=== PATIENT | male | born 1970 | race Caucasian/White ===

== ENCOUNTER 2017-07-10 06:07 | Inpatient (IN) | payer MEDICARE ==
[~2017-07-10] VITALS: Ht 175.3 cm; Wt 95.3 kg
[~2017-07-10 06:07] MED LIST: ANTIDEPRESSANT; CIT20 PO; CYPR4TAB32 PO; DIVA-1 PO; FLUO-177 PO; LEV100 PO; LEVO-3 PO; LEVO50TA80 PO; MAG HYD/AL HYD/SIMETH 30ML UDC PO PRN; MIRT45TA66 PO; MULT-1379 PO; PHEN100 PO; THYROID MED; TRAZ-133 PO; TRAZ50 PO; [UNRECOGNIZED DRUG - CODE] IM
[2017-07-10] MEDS ORDERED: DIAZEPAM 20 MG PER CIWA PROTOCOL PO PRN (06:35)
[2017-07-10 06:45] VITALS: BP 131/89
[2017-07-10] MEDS: MULTIVITAMINS PO SCH (08:31)
[2017-07-10] MEDS: FOLIC ACID 1 MG TAB PO SCH (08:31)
[2017-07-10] MEDS: THIAMINE HCL 100 MG TAB PO SCH (08:31)
[2017-07-10 09:45] VITALS: BP 121/71
--- NOTE | 2017-07-10 13:21 | BHS - Psychiatric Evaluation ---
ER - Title 25 MHE Evaluation Title 25 Evaluation Patient Detained By: Physician (Dr. Neftali Arellano), Law Enforcement (Jerel CHANDLER) Referral Source: Law Enforcement Date Patient Detained: Jul 10, 2017 Time Patient Detained: 03:56 Date Fci Expires: Jul 13, 2017 Time Fci Expires: 03:56 Legal Status: Police Hold: No Legal Status: Residence: [facility] Resident, State Resident Assessment Data Provided By: Patient, Law Enforcement, Other Source (Hospital professionals) HPI/ROS: From ER Doctor, Neftali Arellano, "46-year-old male with a known history of schizoaffective disorder. Patient has a history of alcohol abuse. He was admitted one month ago to [facility] for suicidal ideation. He has a long history of mental health issues with admission to the [facility]. Patient has a plan tonight to jump in front of the vehicle and kill himself. He admits to heavy alcohol use. Patient states she's been not taking his medication for several days. Patient is high risk for suicidal attempt. His emergency halfway will be upheld." Admit due to SI or Attempt: Yes Suicide Plan: Has Plan with Access Current Suicide Plan Patient makes suicidal statements when he is intoxicated. Alcohol or Drugs Involved: Yes Current Intoxication Info: Patient is withdrawing safely today from binge drinking yesterday. Is Patient Info Reliable: No (Patient has different presentation when he is intoxicated, versus when he is sober. He is currently intoxicated/withdrawing.) Is Collateral Info Reliable: Yes (Patient's 3-81 form is attached) Current Home Psych Meds: Patient reports not taking his medication for a considerable period. Mental Status Exam General Appearance: Casual, Good Eye Contact, Cooperative, Polite, Good Interaction Speech: Slurred (Slightly slurred, likely will resolve), Other (Slight speech impediment) Mood: Dysthmic/Depressed Affect: Sad Thought Process: Goal Directed Thought Content: Suicidal Ideation (Says his ideation has diminished some today. ) Sensorium: Clear Cognition: Alert & Oriented-Person, Alert & Oriented-Place, Alert & Oriented- Time, Cnlzz-Gdnjmnek-Hceqrzdqx Memory: Immediate Insight Judgment: Poor Sleep: Hypersomnia Hallucinations: Denies Delusions: Denies Current Risk & History Current Dangerous Risk Assessm: Current Suicide Ideation (Says he knows drinking makes him suicidal, and he says he cannot quit drinking.) Past Dangerous Risk Assessm: Suicide Ideation-last 6mo (Patient last hospitalized at [facility] for simial presentation 1 month ago.) Prior Alcohol/Drug Abuse Patient acknowledges a long history of alcohol and drug abuse. Previous Suicide Attempt: Past - High Lethality Number of Attempts/Description Has had 6 previous visits to [facility] with a similar presentation. Previous Psychiatric Illness: Yes Previous Diagnosis/Treatment: Alcohol intoxication. Alcohol use disorder, severe. Alcohol-induced mood disorder. Schizophrenia versus schizoaffective disorder, according to the patient. Cannabis use disorder, rule out cannabis related disorder. Employment and financial stressors. Stressors of illness Previous Psychiatric Treatment: Yes Previous Treatment Description Six previous [facility] hospitalizations in patient's medical record. It is notable that patient lived outside of the [facility] for several years, and may have been hospitalized elsewhere before he returned back to [place] to reside. Patient has reportedly been hospitalized at [facility]. Risk Assessment & Disposition Evaluated Risk Assessment: Risk is high and severe. Patient is decompensated, having suicidal thoughts, and drinking heavily. He is not taking his medication, and outpatient support is not sufficient to support him at his level of need. Meets Mental Illness Req.: Yes Meets Dangerousness Req.: Yes Emergency Fci to be: Upheld Decision Comment: Patient is a danger to himself because of his current decompensation. At this point he is not able to dafely care for himself and needs a structured environment to withdraw safely and prevent him from impulsively acting on ideation he has about taking his life. Patient has reportedly been hospitalized at [facility]. He says he wishes he could return there , because he acknowledges he cannot stop drinking here in [place]. Date of Decision: Jul 10, 2017 Time of Decision: 13:45 Patient is Medically Stable at: Yes Disposition: SARAH GRANADOS LPC Jul 10, 2017 13:21
[2017-07-10 14:00] VITALS: BP 122/68
[2017-07-10 18:25] VITALS: BP 144/82
[2017-07-10] MEDS: DIVALPROEX SOD ER 500 MG TABSR PO SCH (20:34)
[2017-07-10] MEDS: MIRTAZAPINE 15 MG TAB PO SCH (20:34)
[2017-07-10] MEDS ORDERED: MIRTAZAPINE PO SCH (21:00)
[2017-07-11] MEDS: LEVOTHYROXINE SOD 0.1 MG TAB PO SCH (05:44)
[2017-07-11 06:01] VITALS: BP 144/70
[2017-07-11] MEDS: MULTIVITAMINS PO SCH (07:48)
[2017-07-11] MEDS: FOLIC ACID 1 MG TAB PO SCH (07:48)
[2017-07-11] MEDS: THIAMINE HCL 100 MG TAB PO SCH (07:48)
--- NOTE | 2017-07-11 10:07 | BHS Progress Note ---
S - Subjective Progress Notes Subjective Patient remains cooperative today, stating again that he "needs to go to the [facility]." Patient has a history of frequent admissions prior to 2009, then a notable absence as he was not living in [place] until a return in 2016, followed shortly thereafter by an admission here in May 2017, under similar circumstances to this admission. Patient demonstrates an inability to effectively take medications on an outpatient basis. Patient is primally in need of Synthroid for hypo-thyroidism, secondarily patient's mood deteriorates when under the influence of alcohol. Patient has a history of schizoaffective disorder, treated with Depakote and injectable antipsychotic. Patient not reliably taking this medications either, but also not seemingly having symptoms associated with there absence here on the unit. At this time patient is very social on the unit, and would benefit from half-way arrangement, in order to manage patient's time effectively, and insure abstinence from alcohol and compliance with medications. Will proceed with 10 day hearing at this point. Patient sleeping and eating well, with minimal alcohol withdrawal. No other concerns today. Suicidal Ideation: Resolving Homicidal Ideation: None [facility] - Objective Physical Exam Vital Signs Vital Signs Date Time Temp Pulse Resp B/P (MAP) Pulse Ox O2 Delivery O2 Flow Rate FiO2 07/11/17 06:01 99.0 57 16 144/70 (94) 92 Room Air Muscle Strength and Tone: WNL Gait and Station: Steady [facility] Medications Reviewed: Side Effects, Benefits of Medication, Risks Allergies Reviewed: Yes Mental Status Exam General Appearance: Casual, Well Groomed, Good Eye Contact, Cooperative, Polite , Good Interaction, No Unkept, No Tearful, No Psychomotor Agitation, Psychomotor Retardation (associated with untreeated hypo-thyroidism. ), No Bizarre Mannerisms, No Tics Speech: Slurred (Slightly slurred, likely will resolve), Other (Slight speech impediment) Mood: Dysthmic/Depressed (improving) Affect: Calm, No Sad, Neutral, No Flat, No Withdrawn, No Tearful, No Anxious, No Agitated Thought Process: Organized, Logical, Goal Directed, No Loose Associations, No Flight of Ideas Thought Content: Suicidal Ideation (resolving), No Homicidal Ideation, No Delusions, No Auditory Halllucinations, No Visual Hallucinations, No Ideas of Reference, No Obsessions, No Compulsions Sensorium: Clear Cognition: Alert & Oriented-Person, Alert & Oriented-Place, Alert & Oriented- Time, Fuuvm-Hvjbjzfs-Mzdlblyfh Memory: Immediate Intelligence: Below Average (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 ) Insight Judgment: Poor (when under the influence of alcohol, and in absence of treatment for hypon thyroid state. ) [facility] Assessment and Plan [id number] Encounter Date: Jul 11, 2017 Vxsl-[id number] Encounter Time: 09:30 [facility] Plan: Necessary Precautions, Individual/Group Therapy, Admin/Titrate Meds, Educate Patient Tobacco Medications: Not Appropriate Condition Problems: (1) Hypothyroidism Status: Chronic Assessment & Plan: history of schizoaffective disorder. 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 schedule hearing for 10 day extension. 2. look into potential half-way environments, [facility]. 3. continue treatment. Problem Qualifiers (1) Hypothyroidism: Hypothyroidism type: acquired Qualified Codes: E03.9 - Hypothyroidism, unspecified (2) Alcohol withdrawal: Complication of substance-induced condition: uncomplicated Qualified Codes: F10.230 - Alcohol dependence with withdrawal, uncomplicated (3) Alcohol dependence: Substance use status: alcohol-induced mood disorder Qualified Codes: F10.24 - Alcohol dependence with alcohol-induced mood disorder LEBRON MENENDEZ MD Jul 11, 2017 10:07
[2017-07-11 10:20] VITALS: BP 120/80
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
--- NOTE | 2017-07-11 18:16 | BHS - Psychiatric Evaluation ---
Title 25 Evaluation Hearing Report: 109 Date of Report: Jul 11, 2017 Examiner: Patito Ewing M.S., LMateuszPMateuszCMateusz Patient Detained By: Physician (Dr. Neftali Arellano), Law Enforcement (Jerel CHANDLER) 24hr Mental Health Eval By: Patito Ewing M.S., Luis Angel Date Patient Detained: Jul 10, 2017 Time Patient Detained: 03:56 Date [facility] Expires: Jul 13, 2017 Time [facility] Expires: 03:56 Legal Status: Police Hold: No Legal Status: Relationship: Single Legal Status: Residence: County Resident, State Resident Referral Source: Law Enforcement Assessment Data Provided By: Patient, Law Enforcement, Other Source (Hospital professionals) Chief Complaint: Patient instability came to the attention of Law Enforcement on July 10, 2017 because he reported to Law Enforcement that he was feeling sad and suicidal , and wanted to end his life by walking in traffic on [address]. He further elaborated that he had been hearing voices telling him to commit suicide, had been drinking, and had not been taking mood stabilizing medications anymore. HPI/ROS: From ER Doctor, Neftali Arellano, "46-year-old male with a known history of schizoaffective disorder. Patient has a history of alcohol abuse. He was admitted one month ago to behavioral health for suicidal ideation. He has a long history of mental health issues with admission to the [facility]. Patient has a plan tonight to jump in front of the vehicle and kill himself. He admits to heavy alcohol use. Patient states he's been not taking his medication for several days. Patient is high risk for suicidal attempt. His emergency residential will be upheld." Collateral Info by Consent: 81 document is reliable Reliability of Pt-Evidenced By Patient has been consistent of his report of distress and hopelessness. Current Dangerous Risk Assess: Current Suicide Ideation (Patient reports thinking of walking in frontof traffic.), Self-Injurious Behaviors Current Risk Summary: Current risk is severe, based on patient unable to maintain sobriety and feeling suicidal every time he binge drinks. His impulsive plans to end his life by walking out in front of traffic could be fatal. He reports being unable to feel stable and wants help. In his current state of decompensation, patient is not capable of taking medication to manage his symptoms of mental illness. He is not able to care for himself at this time. His residence at the [facility] is temporary. Past Dangerous Risk Assess: Suicide Ideation-last 6mo (Patient last hospitalized at [facility] for similar presentation 1 month ago.) [facility] - Exam Physical Exam Vital Signs Vital Signs 07/11/17 10:20 Temp 97.9 Pulse 50 Resp 16 B/P (MAP) 120/80 (93) Pulse Ox 97 O2 Delivery Room Air Mental Status Exam General Appearance: Casual, Well Groomed, Good Eye Contact, Cooperative, Polite , Good Interaction, No Unkept, No Tearful, No Psychomotor Agitation, Psychomotor Retardation (Associated with untreated hypo-thyroidism. ), No Bizarre Mannerisms, No Tics Speech: Slurred (Slightly slurred, likely will resolve as patient reaches full withdrawal.), Other (Slight speech impediment) Mood: Dysthmic/Depressed (Improving relative to when patient first came to the hospital.) Affect: Calm, No Sad, Neutral, No Flat, No Withdrawn, No Tearful, No Anxious, No Agitated Thought Process: Organized, Logical, Goal Directed, No Loose Associations, No Flight of Ideas Thought Content: Suicidal Ideation (Patient says his thought of ending his life improve when he is being hosptalized at [facility].), No Homicidal Ideation, No Delusions, No Auditory Halllucinations, No Visual Hallucinations, No Ideas of Reference, No Obsessions, No Compulsions Sensorium: Clear Cognition: Alert & Oriented-Person, Alert & Oriented-Place, Alert & Oriented- Time, Kexmw-Lmnddfyd-Uozotigzj Memory: Immediate Intelligence: Below Average (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 ) Insight Judgment: Poor (When under the influence of alcohol, and in absence of treatment. ) Sleep: Hypersomnia Title 25 History Psychiatric History: Patient, Alphonse Del Angel has been an inpatient multiple times here at the Behavioral Health unit. The patient is believed to have been at the [facility] in [place] on at least 2 occasions in his history. Patient receiving no outpatient treatment again, which he currently avoids, patient off all injectable medications and is last believed to have been receiving outpatient care in the [place] area. He has had multiple parasuicidal attempts throughout his life and suicidal ideation especially connected to binge drinking. He has deficits in self management that are long term care administrator, and some congenital. Family Psychiatric Hx: No known psychiatric illness except for substance abuse and alcohol abuse in the mother, with possible in-utero transmission of alcohol and drug abuse. Social History: The patient was born to substance-using, alcohol-abusing mother, which resulted in the patient's current deficits, according to some reports. At age 5, patient was adopted into an intact family. He was institutionalized at age 15 for aggressive behavior and after that was placed in foster care. The patient graduated high school and has worked in [place] in the past at many different jobs. He is known to have been working at [employer], but is not currently working. The patient is on disability. He is currently living in the [place] area again , not believed to be working. The patient has a payee through the [facility] and receives Social Security Disability income. Prior Hospitalizations: Previous [facility] hospitalizations are as follows: Mar 14, 2008 Apr 26, 2008 September 20, 2008 Sep 05, 2009 December 07, 2009 May 31, 2017 It is believed that patient lived in the [place] area between the latter part of 2009 until this year when he returned to [place]. Patient reports additonal hospitalizations during that time at the . Drug & Alcohol Use: Patient currently using alcohol. He reports infrequent cannabis use. He has abused epinephrine over the counter in the past and LSD. The patient is known not to have abused alcohol during the week while he was working in the past and notably was reported to have a good work record at [employer] for many years. However, in the end, the patient's alcohol dependence did get to a point where the patient's job was terminated. Current Living Situation: Living temporarily at the [facility]. Current Support System: Patient has a good friend "Tank" who lives in [facility] and talks with patient about needing to be sober. Employment Issues: Patient is not currently employed. Legal Concerns: Patient says he owes $150 in an initial payment to the municipal court for payment plan on July 24. Patient Strengths: Patient is congenial, sincere, and enjoys others' company and support. Relevant Medications: Valium, Remeron, Depakote It is known that the patient's lab work indicates a significantly elevated TSH. The patient is known not to take medications as prescribed, including his Synthroid, which was most recently prescribed at 100 mcg a day. The patient is also noted to have a nondetectable Depakote level, although he is prescribed Depakote q.h.s. for mood disorder and a history of schizoaffective disorder. The patient also was on Invega Sustenna injectable medication. The last time this injection was due was June 17, 2017, and the patient did not receive this. Assessment and Plan Course of Care: Course of care will be consistent with a patient who is destabilized and experiencing periods of suicidal ideation. He will be provided with a therapeutic and safe environment. Diagnostic Impressions: Alcohol intoxication. Alcohol use disorder, severe. Alcohol withdrawal. History of schizoaffective disorder. History of hypothyroidism. Rule out depression secondary to general medical condition, hypothyroidism versus substance-induced mood disorder. Patient known to have multiple social limitations. Assessment and Plan: Necessary precautions will be implemented. The patient will participate in individual and group therapy. Medications will be restarted, and monitored Collateral information to be obtained as necessary. Continue to evaluate the patient's overall status, and engage in case management. Risk Formulation: The patient "evidences behavior manifested by recent acts or omissions that, due to mental illness, the patient is unable to satisfy basic needs for nourishment, essential medical care, residential, or safety so that a substantial probability exists that , serious physical injury, serious physical debilitation, serious mental debilitation, destabilization from lack of or refusal to take prescribed psychotropic medications for a diagnosed condition or serious physical disease will imminently ensue, unless the individual receives prompt and adequate treatment for this mental illness" and The patient "evidences a substantial probability of physical harm to self as manifested by evidence of recent threats of/or attempts at suicide or serious bodily harm" as evidenced by: Current risk is severe, based on patient unable to maintain sobriety and feeling suicidal every time he binge drinks. His impulsive plans to end his life by walking out in front of traffic could be fatal. He acknowledges he is unable to maintain sobriety on his own. He reports being unable to feel stable and wants help. In his current state of decompensation, patient is not capable of taking medication to manage his symptoms of mental illness. He is not able to care for himself at this time. His residence at the [facility] is temporary. Patient instability came to the attention of Law Enforcement on July 10, 2017 because he reported to Law Enforcement that he was feeling sad and suicidal, and wanted to end his life by walking in traffic [place] [address]. He further elaborated that he had been hearing voices telling him to commit suicide, had been drinking, and had not been taking mood stabilizing medications anymore. Patient's plan for ending his life, "walking in front of traffic," is a means of that patient has access to at any time. Patient is not engaged in outpatient care, and together these liabilities to his person make unstructured and unsupported living dangerous to patient and risk of further decompensation is high. Recommendations of [facility] Team: It is therefore recommended by the Behavioral Health Services Team: PatientAlphonse stay at [facility]/ [facility] the full extent of his 72 hour residential. It may be further requested that patient stay up to 10 days or until he stabilizes. He is currently assessed as unstable. PATITO EWING FOIL SPINNER Jul 11, 2017 18:00
[2017-07-11] MEDS: MIRTAZAPINE 15 MG TAB PO SCH (20:24)
[2017-07-11] MEDS: DIVALPROEX SOD ER 500 MG TABSR PO SCH (20:24)
[2017-07-12] MEDS: LEVOTHYROXINE SOD 0.1 MG TAB PO SCH (05:38)
[2017-07-12 05:50] VITALS: BP 103/56
[2017-07-12] MEDS: THIAMINE HCL 100 MG TAB PO SCH (08:10)
[2017-07-12] MEDS: FOLIC ACID 1 MG TAB PO SCH (08:10)
[2017-07-12] MEDS: MULTIVITAMINS PO SCH (08:10)
--- NOTE | 2017-07-12 09:29 | BHS Progress Note ---
[facility] - Subjective Progress Notes Subjective Patient remains calm and cooperative with treatment, interacting well, patient' s energy levels improving somewhat after re-starting synthroid, patient historically is non-compliant with medications outside the hospital. At this point will proceed with 10 day hearing on this patient who is in need of structured living upon discharge in order to take medications as prescribed, and avoid substance use. Patient's appetite and sleep good on the unit. No other concerns. Suicidal Ideation: None Homicidal Ideation: None [facility] - Objective Physical Exam Vital Signs Vital Signs Date Time Temp Pulse Resp B/P (MAP) Pulse Ox O2 Delivery O2 Flow Rate FiO2 07/12/17 05:50 97.5 51 15 103/56 (72) 91 Room Air Muscle Strength and Tone: WNL Gait and Station: Steady [facility] Medications Reviewed: Side Effects, Benefits of Medication, Risks Allergies Reviewed: Yes Mental Status Exam General Appearance: Casual, Well Groomed, Good Eye Contact, Cooperative, Polite , Good Interaction, No Unkept, No Tearful, No Psychomotor Agitation, Psychomotor Retardation (Associated with untreated hypo-thyroidism. ), No Bizarre Mannerisms, No Tics Speech: Spontaneous, Normal Rate, Normal Rhythm, Normal Volume, Normal Tone, Slurred (slightly, baseline), Other (Slight speech impediment) Mood: Dysthmic/Depressed (Improving relative to when patient first came to the hospital.) Affect: Calm, No Sad, Neutral, No Flat, No Withdrawn, No Tearful, No Anxious, No Agitated Thought Process: Organized, Logical, Goal Directed, No Loose Associations, No Flight of Ideas Thought Content: Suicidal Ideation (Patient says his thought of ending his life improve when he is being hosptalized at [facility].), No Homicidal Ideation, No Delusions, No Auditory Halllucinations, No Visual Hallucinations, No Ideas of Reference, No Obsessions, No Compulsions Sensorium: Clear Cognition: Alert & Oriented-Person, Alert & Oriented-Place, Alert & Oriented- Time, Ngdng-Pnaopbxj-Qlyvayikv Memory: Immediate, Recent, Remote Intelligence: Below Average (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 ) Insight Judgment: Poor (When under the influence of alcohol, and in absence of treatment. and limited by intellect) [facility] Assessment and Plan Prqt-jz-Redz Encounter Date: Jul 12, 2017 Jnra-sh-Foas Encounter Time: 09:00 [facility] Plan: Necessary Precautions, Individual/Group Therapy, Admin/Titrate Meds, Educate Patient Tobacco Medications: Not Appropriate Condition Problems: (1) Hypothyroidism Status: Chronic Assessment & Plan: history of schizoaffective disorder. 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 continue treatment. 2. look into placement options. 3. schedule hearing for 10 day extension. Problem Qualifiers (1) Hypothyroidism: Hypothyroidism type: acquired Qualified Codes: E03.9 - Hypothyroidism, unspecified (2) Alcohol withdrawal: Complication of substance-induced condition: uncomplicated Qualified Codes: F10.230 - Alcohol dependence with withdrawal, uncomplicated (3) Alcohol dependence: Substance use status: alcohol-induced mood disorder Qualified Codes: F10.24 - Alcohol dependence with alcohol-induced mood disorder LEBRON MENENDEZ MD Jul 12, 2017 09:29
[2017-07-12 09:50] VITALS: BP 110/70
[2017-07-12] MEDS: DIVALPROEX SOD ER 500 MG TABSR PO SCH (20:48)
[2017-07-12] MEDS: MIRTAZAPINE 15 MG TAB PO SCH (20:48)
[2017-07-13 03:59] VITALS: BP 117/68
[2017-07-13] MEDS: LEVOTHYROXINE SOD 0.1 MG TAB PO SCH (05:26)
[2017-07-13] MEDS: FOLIC ACID 1 MG TAB PO SCH (08:18)
[2017-07-13] MEDS: MULTIVITAMINS PO SCH (08:19)
[2017-07-13] MEDS: THIAMINE HCL 100 MG TAB PO SCH (08:19)
--- NOTE | 2017-07-13 10:28 | BHS Progress Note ---
[facility] - Subjective Progress Notes Subjective Patient interacting very well this AM. Patient denies any symptoms today, and sleep and appetite are good. Patient remains verbalizing a desire to abstain from alcohol, and live in a structured environment. Will have hearing today, for 10 day extension, and continue to look for appropriate placement. No medication changes, no other concerns. Suicidal Ideation: None Homicidal Ideation: None [facility] - Objective Physical Exam Vital Signs Vital Signs Date Time Temp Pulse Resp B/P (MAP) Pulse Ox O2 Delivery O2 Flow Rate FiO2 07/13/17 03:59 97.6 54 16 117/68 (84) 91 Room Air Muscle Strength and Tone: WNL Gait and Station: Steady [facility] Medications Reviewed: Side Effects, Benefits of Medication, Risks Allergies Reviewed: Yes Mental Status Exam General Appearance: Casual, Well Groomed, Good Eye Contact, Cooperative, Polite , Good Interaction, No Unkept, No Tearful, No Psychomotor Agitation, Psychomotor Retardation (Associated with untreated hypo-thyroidism. ), No Bizarre Mannerisms, No Tics Speech: Spontaneous, Normal Rate, Normal Rhythm, Normal Volume, Normal Tone, Slurred (slightly, baseline), Other (Slight speech impediment) Mood: Dysthmic/Depressed (Improving relative to when patient first came to the hospital.) Affect: Calm, No Sad, Neutral, No Flat, No Withdrawn, No Tearful, No Anxious, No Agitated Thought Process: Organized, Logical, Goal Directed, No Loose Associations, No Flight of Ideas Thought Content: Suicidal Ideation (Patient says his thought of ending his life improve when he is being hosptalized at [facility].), No Homicidal Ideation, No Delusions, No Auditory Halllucinations, No Visual Hallucinations, No Ideas of Reference, No Obsessions, No Compulsions Sensorium: Clear Cognition: Alert & Oriented-Person, Alert & Oriented-Place, Alert & Oriented- Time, Vmjtm-Vctnlemz-Awzavbqsf Memory: Immediate, Recent, Remote Intelligence: Below Average (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 ) Insight Judgment: Poor (When under the influence of alcohol, and in absence of treatment. and limited by intellect) [facility] Assessment and Plan Xtjk-pe-[id number] Encounter Date: Jul 13, 2017 [id number] Encounter Time: 09:00 [facility] Plan: Necessary Precautions, Individual/Group Therapy, Admin/Titrate Meds, Educate Patient Tobacco Medications: Not Appropriate Condition Problems: (1) Hypothyroidism Status: Chronic Assessment & Plan: history of schizoaffective disorder. 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 Continue treatment. 2. hearing today. 3. no medication changes. Problem Qualifiers (1) Hypothyroidism: Hypothyroidism type: acquired Qualified Codes: E03.9 - Hypothyroidism, unspecified (2) Alcohol withdrawal: Complication of substance-induced condition: uncomplicated Qualified Codes: F10.230 - Alcohol dependence with withdrawal, uncomplicated (3) Alcohol dependence: Substance use status: alcohol-induced mood disorder Qualified Codes: F10.24 - Alcohol dependence with alcohol-induced mood disorder LEBRON MENENDEZ MD Jul 13, 2017 10:28
[2017-07-13] MEDS: IBUPROFEN 200 MG TAB PO PRN (19:52)
[2017-07-13] MEDS: MIRTAZAPINE 15 MG TAB PO SCH (20:25)
[2017-07-13] MEDS: DIVALPROEX SOD ER 500 MG TABSR PO SCH (20:25)
[2017-07-13 23:18] VITALS: BP 127/62
[2017-07-14] MEDS: LEVOTHYROXINE SOD 0.1 MG TAB PO SCH (06:18)
[2017-07-14] MEDS: FOLIC ACID 1 MG TAB PO SCH (07:48)
[2017-07-14] MEDS: THIAMINE HCL 100 MG TAB PO SCH (07:48)
[2017-07-14] MEDS: MULTIVITAMINS PO SCH (07:48)
--- NOTE | 2017-07-14 09:34 | BHS Progress Note ---
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 Sleep and appetite good, No other concerns today. Suicidal Ideation: None Homicidal Ideation: None [facility] - Objective Physical Exam Vital Signs Vital Signs Date Time Temp Pulse Resp B/P (MAP) Pulse Ox O2 Delivery O2 Flow Rate FiO2 07/13/17 23:18 98.7 54 127/62 (83) 90 Room Air 07/13/17 03:59 16 Muscle Strength and Tone: WNL Gait and Station: Steady [facility] Medications Reviewed: Side Effects, Benefits of Medication, Risks Allergies Reviewed: Yes Mental Status Exam General Appearance: Casual, Well Groomed, Good Eye Contact, Cooperative, Polite , Good Interaction, No Unkept, No Tearful, No Psychomotor Agitation, Psychomotor Retardation (Associated with untreated hypo-thyroidism. ), No Bizarre Mannerisms, No Tics Speech: Spontaneous, Normal Rate, Normal Rhythm, Normal Volume, Normal Tone, Slurred (slightly, baseline), Other (Slight speech impediment) Mood: Dysthmic/Depressed (Improving relative to when patient first came to the hospital.) Affect: Calm, No Sad, Neutral, No Flat, No Withdrawn, No Tearful, No Anxious, No Agitated Thought Process: Organized, Logical, Goal Directed, No Loose Associations, No Flight of Ideas Thought Content: Suicidal Ideation (Patient says his thought of ending his life improve when he is being hosptalized at [facility].), No Homicidal Ideation, No Delusions, No Auditory Halllucinations, No Visual Hallucinations, No Ideas of Reference, No Obsessions, No Compulsions Sensorium: Clear Cognition: Alert & Oriented-Person, Alert & Oriented-Place, Alert & Oriented- Time, Gqlnb-Lislylku-Nbjfcpjuq Memory: Immediate, Recent, Remote Intelligence: Below Average (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 ) Insight Judgment: Poor (When under the influence of alcohol, and in absence of treatment. and limited by intellect) [facility] Assessment and Plan Qfxj-ar-Wtld Encounter Date: Jul 14, 2017 Ecup-ju-Sxmg Encounter Time: 09:30 [facility] Plan: Necessary Precautions, Individual/Group Therapy, Admin/Titrate Meds, Educate Patient Tobacco Medications: Not Appropriate Condition Problems: (1) Hypothyroidism Status: Chronic Assessment & Plan: history of schizoaffective disorder. 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 continue treatment. 2. no medication changes. Problem Qualifiers (1) Hypothyroidism: Hypothyroidism type: acquired Qualified Codes: E03.9 - Hypothyroidism, unspecified (2) Alcohol withdrawal: Complication of substance-induced condition: uncomplicated Qualified Codes: F10.230 - Alcohol dependence with withdrawal, uncomplicated (3) Alcohol dependence: Substance use status: alcohol-induced mood disorder Qualified Codes: F10.24 - Alcohol dependence with alcohol-induced mood disorder LEBRON MENENDEZ MD Jul 14, 2017 09:34
[2017-07-14 11:10] VITALS: BP 130/81
[2017-07-14] MEDS: NICOTINE INH SYSTEM 10 MG/INH INH PRN (14:37)
[2017-07-14] MEDS: NICOTINE CARTRIDGE 1 EA PO PRN (14:37)
[2017-07-14 17:35] VITALS: BP 144/85
[2017-07-14] MEDS: IBUPROFEN 200 MG TAB PO PRN (19:40)
[2017-07-14] MEDS: MIRTAZAPINE 15 MG TAB PO SCH (21:13)
[2017-07-14] MEDS: DIVALPROEX SOD ER 500 MG TABSR PO SCH (21:14)
[2017-07-15 00:14] VITALS: BP 111/69
[2017-07-15] MEDS: LEVOTHYROXINE SOD 0.1 MG TAB PO SCH (06:12)
[2017-07-15 08:13] VITALS: BP 111/73
[2017-07-15] MEDS: MULTIVITAMINS PO SCH (08:16)
[2017-07-15] MEDS: THIAMINE HCL 100 MG TAB PO SCH (08:16)
[2017-07-15] MEDS: FOLIC ACID 1 MG TAB PO SCH (08:16)
[2017-07-15] MEDS: NICOTINE INH SYSTEM 10 MG/INH INH PRN ×2 (08:21→19:37)
--- NOTE | 2017-07-15 13:19 | BHS Progress Note ---
S - Subjective Progress Notes Subjective Pt seen on 07/15/2017 at 0945 in treatment room with team. Pt says "I'm fine, I just want to get out of here down to [place], I need to contact the [facility]." Pt slept well. Denies med side effects. Appetite good. Denies any AH/VH/SI. Denies depression. No alcohol withdrawal symptoms so at this point we will DC the valium prn. We contacted [facility] and they will be able to accept him by Monday at the latest; we requested an earlier date is possible and they will look into it. After [facility] he will transfer to correction setting, for this pt who is chronically non-compliant with medications as out-pt and in need of correction structure. Suicidal Ideation: None Homicidal Ideation: None S - Objective Physical Exam Vital Signs Vital Signs 07/15/17 08:13 Temp 97.9 Pulse 54 Resp 16 B/P (MAP) 111/73 (86) Pulse Ox 94 O2 Delivery Room Air Muscle Strength and Tone: WNL Gait and Station: Steady [facility] Medications Reviewed: Side Effects, Benefits of Medication, Risks Allergies Reviewed: Yes Mental Status Exam General Appearance: Casual, Well Groomed, Good Eye Contact, Cooperative, Polite , Good Interaction, No Unkept, No Tearful, No Psychomotor Agitation, Psychomotor Retardation (Associated with untreated hypo-thyroidism. ), No Bizarre Mannerisms, No Tics Speech: Spontaneous, Normal Rate, Normal Rhythm, Normal Volume, Normal Tone, Other (Slight speech impediment) Mood: Dysthmic/Depressed (irritable today) Affect: No Sad, Neutral (somewhat irritable), No Flat, No Withdrawn, No Tearful , No Anxious, No Agitated Thought Process: Organized, Logical, Goal Directed, No Loose Associations, No Flight of Ideas Thought Content: No Suicidal Ideation, No Homicidal Ideation, No Delusions, No Auditory Halllucinations, No Visual Hallucinations, No Thought Broadcasting, No Ideas of Reference, No Obsessions, No Compulsions, No Other Sensorium: Clear Cognition: Alert & Oriented-Person, Alert & Oriented-Place, Alert & Oriented- Time, Yxoqf-Zaqsrzqe-Hooxrsopv Memory: Immediate, Recent, Remote Intelligence: Below Average (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 ) Insight Judgment: Poor (When under the influence of alcohol, and in absence of treatment. and limited by intellect) [facility] Assessment and Plan [id number] Encounter Date: Jul 15, 2017 [id number] Encounter Time: 09:45 [facility] Plan: Necessary Precautions, Individual/Group Therapy, Admin/Titrate Meds, Educate Patient Tobacco Medications: Not Appropriate Condition Problems: (1) Schizoaffective disorder Assessment & Plan: By history. No evidence of psychotic symptoms off of neuroleptic-- last injection was May 20. 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
[2017-07-15 16:55] VITALS: BP 104/63
[2017-07-15] MEDS: MIRTAZAPINE 15 MG TAB PO SCH (20:14)
[2017-07-15] MEDS: DIVALPROEX SOD ER 500 MG TABSR PO SCH (20:14)
[2017-07-15 23:15] VITALS: BP 131/80
[2017-07-16] MEDS: IBUPROFEN 200 MG TAB PO PRN ×2 (04:36→20:28)
[2017-07-16] MEDS: LEVOTHYROXINE SOD 0.1 MG TAB PO SCH (06:14)
[2017-07-16] MEDS: FOLIC ACID 1 MG TAB PO SCH (07:53)
[2017-07-16] MEDS: THIAMINE HCL 100 MG TAB PO SCH (07:53)
[2017-07-16] MEDS: MULTIVITAMINS PO SCH (07:53)
[2017-07-16 12:30] VITALS: BP 108/75
--- NOTE | 2017-07-16 15:43 | BHS Progress Note ---
BHS - Subjective Progress Notes Subjective Pt seen with team. Pt c/o AH last night, voices saying "get out," also derogatory voices "about what I did to my parents." We discussed his history with AH, first experienced around age 27, usually derogatory, sometimes command AH to leave or run. Pt also has hx of feeling paranoid, that people are watching him. He was dx'd with schizoaffective while at [facility]. Did have two year period of sobriety during which time he was on invega sustena and says he felt this (as well as risperdal which he was on before invega) helped to keep AH at bay and helped with mood stability. Pt last had invega sustena 117 mg injection on May 20, which would have covered AH until roughly Jun.19, so onset of AH now makes sense pharmacologically. Pt requesting to go back on invega, we discussed risks of wt gain, diabetes, EPS, and he still wants to re- start it. States he felt it helped to keep him more stable. 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 Will also increase Depakote ER to 1000 mg for hx of seizure disorder. Suicidal Ideation: None Homicidal Ideation: None [facility] - Objective Physical Exam Vital Signs Vital Signs 07/16/17 12:30 Temp 97.9 Pulse 51 Resp 16 B/P (MAP) 108/75 (86) Pulse Ox 96 O2 Delivery Room Air Muscle Strength and Tone: WNL Gait and Station: Steady [facility] Medications Reviewed: Side Effects, Benefits of Medication, Risks Allergies Reviewed: Yes Mental Status Exam General Appearance: Casual, Well Groomed, Good Eye Contact, Cooperative, Polite , Good Interaction, No Unkept, No Tearful, No Psychomotor Agitation, Psychomotor Retardation (Associated with untreated hypo-thyroidism. ), No Bizarre Mannerisms, No Tics Speech: Spontaneous, Normal Rate, Normal Rhythm, Normal Volume, Normal Tone, Other (Slight speech impediment) Mood: Dysthmic/Depressed Affect: No Sad, Neutral (somewhat irritable), No Flat, No Withdrawn, No Tearful , No Anxious, No Agitated Thought Process: Organized, Logical, Goal Directed, No Loose Associations, No Flight of Ideas Thought Content: No Suicidal Ideation, No Homicidal Ideation, No Delusions, Auditory Halllucinations, No Visual Hallucinations, No Thought Broadcasting, No Ideas of Reference, No Obsessions, No Compulsions, No Other Sensorium: Clear Cognition: Alert & Oriented-Person, Alert & Oriented-Place, Alert & Oriented- Time, [id number]-[id number]-[id number] Memory: Immediate, Recent, Remote Intelligence: Below Average (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 ) Insight Judgment: Poor (When under the influence of alcohol, and in absence of treatment. and limited by intellect) [facility] Assessment and Plan [id number] Encounter Date: Jul 16, 2017 [id number] Encounter Time: 09:[address] 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 Check level after about 5-7 days. Problem Qualifiers (1) Alcohol dependence: Substance use status: alcohol-induced mood disorder Qualified Codes: F10.24 - Alcohol dependence with alcohol-induced mood disorder (2) Hypothyroidism: Hypothyroidism type: acquired Qualified Codes: E03.9 - Hypothyroidism, unspecified FRANKY DANG MD Jul 16, 2017 15:43
[2017-07-16 18:10] VITALS: BP 111/60
[2017-07-16] MEDS: DIVALPROEX SOD ER 500 MG TABSR PO SCH (20:27)
[2017-07-16] MEDS: MIRTAZAPINE 15 MG TAB PO SCH (20:27)
[2017-07-16] MEDS: PALIPERIDONE 3 MG TAB.ER.24 PO SCH (20:27)
[2017-07-16 20:55] VITALS: BP 125/76
[2017-07-17] MEDS: LEVOTHYROXINE SOD 0.1 MG TAB PO SCH (05:35)
[2017-07-17] MEDS: MULTIVITAMINS PO SCH (08:23)
[2017-07-17] MEDS: THIAMINE HCL 100 MG TAB PO SCH (08:23)
[2017-07-17] MEDS: FOLIC ACID 1 MG TAB PO SCH (08:23)
--- NOTE | 2017-07-17 09:50 | BHS Progress Note ---
[facility] - Subjective Progress Notes Subjective Patient remains pleasant on the unit, continues to verbalize a desire to alter his life course, and not return to drug or alcohol use. Will continue to look for placement, sleeping well, and denies any complaints today. Will continue current medications, with no changes today. Suicidal Ideation: None Homicidal Ideation: None [facility] - Objective Physical Exam Vital Signs Vital Signs Date Time Temp Pulse Resp B/P (MAP) Pulse Ox O2 Delivery O2 Flow Rate FiO2 07/16/17 20:55 98.1 49 125/76 (92) 96 Room Air 07/16/17 18:10 16 Muscle Strength and Tone: WNL Gait and Station: Steady [facility] Medications Reviewed: Side Effects, Benefits of Medication, Risks Allergies Reviewed: Yes Mental Status Exam General Appearance: Casual, Well Groomed, Good Eye Contact, Cooperative, Polite , Good Interaction, No Unkept, No Tearful, No Psychomotor Agitation, Psychomotor Retardation (Associated with untreated hypo-thyroidism. ), No Bizarre Mannerisms, No Tics Speech: Spontaneous, Normal Rate, Normal Rhythm, Normal Volume, Normal Tone, Other (Slight speech impediment) Mood: Dysthmic/Depressed (improving) Affect: No Sad, Neutral (somewhat irritable), No Flat, No Withdrawn, No Tearful , No Anxious, No Agitated Thought Process: Organized, Logical, Goal Directed, No Loose Associations, No Flight of Ideas Thought Content: No Suicidal Ideation, No Homicidal Ideation, No Delusions, Auditory Halllucinations, No Visual Hallucinations, No Thought Broadcasting, No Ideas of Reference, No Obsessions, No Compulsions, No Other Sensorium: Clear Cognition: Alert & Oriented-Person, Alert & Oriented-Place, Alert & Oriented- Time, Owlqc-Fuvrdodd-Llmunnnqv Memory: Immediate, Recent, Remote Intelligence: Below Average (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 ) Insight Judgment: Poor (When under the influence of alcohol, and in absence of treatment. and limited by intellect) [facility] Assessment and Plan [id number] Encounter Date: Jul 17, 2017 [id number]-[id number] Encounter Time: 09:00 [facility] Plan: Necessary Precautions, Individual/Group Therapy, Admin/Titrate Meds, Educate Patient Tobacco Medications: Not Appropriate Condition Problems: (1) Schizoaffective disorder (2) Hypothyroidism Status: Chronic Assessment & Plan: history of schizoaffective disorder. 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 continue treatment. 2. no medication changes today. 3. look for placement. Problem Qualifiers (1) Schizoaffective disorder: Schizoaffective disorder type: depressive Qualified Codes: F25.1 - Schizoaffective disorder, depressive type (2) Hypothyroidism: Hypothyroidism type: acquired Qualified Codes: E03.9 - Hypothyroidism, unspecified (3) Alcohol withdrawal: Complication of substance-induced condition: uncomplicated Qualified Codes: F10.230 - Alcohol dependence with withdrawal, uncomplicated (4) Alcohol dependence: Substance use status: alcohol-induced mood disorder Qualified Codes: F10.24 - Alcohol dependence with alcohol-induced mood disorder LEBRON MENENDEZ MD Jul 17, 2017 09:50
[2017-07-17] MEDS: NICOTINE INH SYSTEM 10 MG/INH INH PRN (12:11)
[2017-07-17] MEDS: NICOTINE CARTRIDGE 1 EA PO PRN (12:11)
[2017-07-17 12:40] VITALS: BP 134/88
[2017-07-17] MEDS: IBUPROFEN 200 MG TAB PO PRN (20:19)
[2017-07-17] MEDS: PALIPERIDONE 3 MG TAB.ER.24 PO SCH (20:20)
[2017-07-17] MEDS: DIVALPROEX SOD ER 500 MG TABSR PO SCH (20:20)
[2017-07-17] MEDS: MIRTAZAPINE 15 MG TAB PO SCH (20:20)
[2017-07-17 20:46] VITALS: BP 124/81
[2017-07-18] MEDS: LEVOTHYROXINE SOD 0.1 MG TAB PO SCH (05:24)
[2017-07-18 05:34] VITALS: BP 112/70
[2017-07-18] MEDS: MULTIVITAMINS PO SCH (08:09)
[2017-07-18] MEDS: THIAMINE HCL 100 MG TAB PO SCH (08:09)
[2017-07-18] MEDS: FOLIC ACID 1 MG TAB PO SCH (08:09)
[2017-07-18] MEDS: IBUPROFEN 200 MG TAB PO PRN (09:26)
[2017-07-18] MEDS ORDERED: DIVA-1 PO (11:50)
[2017-07-18] MEDS ORDERED: PAL3PT PO (11:54)
[2017-07-18] MEDS ORDERED: MIRT-17 PO (11:54)
[2017-07-18] MEDS ORDERED: MULT-1379 PO (11:55)
[2017-07-18] MEDS ORDERED: NICOTROL CARTRIDGE PO (11:56)
[2017-07-18] MEDS ORDERED: NIC10R INH (11:56)
--- NOTE | 2017-07-19 18:38 | DISCHARGE SUMMARY ---
DATE OF ADMISSION: July 10, 2017 DATE OF DISCHARGE: July 18, 2017 FINAL DIAGNOSES PER DSM-V Schizoaffective disorder, bipolar type. Alcohol use disorder, severe. Alcohol-induced mood disorder. 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 Stressors associated with above diagnoses. REASON FOR ADMISSION For this discharge note, this patient was seen on July 18, 2017 at approximately 0900 hours. Patient was being [facility] [place]. Patient initially admitted for being off medications which include Synthroid, mood stabilizer, Depakote and patient has been prescribed Invega injectable in the past as well. Patient well known to have decreasing mood associated with the use of alcohol. On the unit patient continued to interact well throughout his stay, took an active role in his treatment. Patient verbalizing pursuit of wanting to get into group living. Patient continued to improve, and again patient taking an active role in his treatment. Patient was held on an emergency hold and extended for 10 days until adequate placement could be found. PHYSICAL EXAMINATION: GENERAL: Please see emergency room note. Notable for a cooperative 46-year- old male. VITAL SIGNS: At the time of admission temperature 97.9, pulse 63, respiratory rate 16, blood pressure 124/84, pulse oximetry 91 on room air. LABORATORY DATA At the time of admission CBC otherwise unremarkable. CMP notable for magnesium slightly low at 1.6. Notable for AST elevated at 63 and a TSH elevated at 23.10. Urinalysis did show small urine blood, otherwise unremarkable. Toxicology screen negative. Nondetectable Depakote level at the time of admission and a serum alcohol level of 255. MENTAL STATUS EXAMINATION AT THE TIME OF DISCHARGE GENERAL APPEARANCE, BEHAVIOR AND ATTITUDE: This is a 46-year-old male, potentially having facial features associated with alcohol affect. Patient showing no psychomotor agitation or retardation. Patient making fair to good eye contact, considered baseline for this patient. Patient cooperative , showing a sense of humor. SPEECH: Considered baseline and within normal limits for this patient. MOOD: Described as good. AFFECT: Full and bright. THOUGHT PROCESSES: Logical, goal directed. No loose associations or flight of ideas. THOUGHT CONTENT: Patient asked about visual or auditory hallucinations. Patient denying. At times patient will make reference to these. Denying ideas of reference, thought broadcastings, delusions, obsessions, compulsions. Patient adamantly denying suicidal or homicidal ideation. SENSORIUM: Clear. COGNITION: Alert and oriented to person, place, time and situation. MEMORY: Immediate, recent and remote estimated intact. INTELLIGENCE: Below average based on interview and multiple visits with this patient. INSIGHT AND JUDGMENT: Considered somewhat limited by intellect and limited by alcohol abuse and inability to remain on medications, specifically Synthroid and Depakote, on an outpatient basis. However, patient considered intact and appropriate for group living placement. RESULTS OF TESTING IMAGING: None. LABORATORY DATA: See above. CONSULTATIONS: None. TREATMENT Patient received medications, participated in individual and group therapy. HOSPITAL COURSE Throughout patient's stay, overall remaining cooperative with staff and other patients. Patient took an active role in his treatment, working with therapist to find adequate placement. Continued to improve. Medication were restarted including Synthroid, Depakote, and patient eventually placed back on Invega. CONDITION OF PATIENT ON DISCHARGE Stable. Considered of minimal risk to himself or others and appropriate for ongoing outpatient care. DISPOSITION Patient would discharge to group living in [place], would be taken there by an adult friend. Patient would follow up with outpatient services there including a Depakote level in two weeks. Patient would abstain from alcohol, marijuana and any other illicit substance. He was given the crisis line should symptoms return. MEDICATIONS AT THE TIME OF DISCHARGE 1. Depakote ER 1000 mg at bedtime. 2. Invega was prescribed, however, patient unable to obtain this, was then placed on Seroquel 50 mg p.o. at bedtime. 3. Remeron 15 mg at bedtime. 4. Synthroid 0.1 mg daily. 5. Multivitamin with minerals daily. 6. Patient encouraged strongly to quit smoking and continue over the counter nicotine replacement. Risks, benefits and alternatives of above discharge plan were discussed. Informed consent was given to proceed with above discharge plan by this patient , patient's adult friend that would take him to [place], and the accepting facility. [facility]
== END 2017-07-18 18:17 | disposition home or self-care (01) | DRG 885 ==
LOC: BHS 06:07
PROVIDERS: ADMIT Nurse Practitioner Psychiatric/Mental Health; ATTEND Nurse Practitioner Psychiatric/Mental Health
DX: F25.0 Schizoaffective disorder, bipolar type (principal); F10.24 Alcohol dependence with alcohol-induced mood disorder; R45.851 Suicidal ideations; F10.230 Alcohol dependence with withdrawal, uncomplicated; R41.83 Borderline intellectual functioning; F32.9 Major depressive disorder, single episode, unspecified; T43.596A Underdosing of other antipsychotics and neuroleptics, initial encounter; T38.1X6A Underdosing of thyroid hormones and substitutes, initial encounter; E03.9 Hypothyroidism, unspecified; G40.909 Epilepsy, unspecified, not intractable, without status epilepticus; R47.81 Slurred speech; F15.11 Other stimulant abuse, in remission; Q86.0 Fetal alcohol syndrome (dysmorphic); Y90.8 Blood alcohol level of 240 mg/100 ml or more; Z91.128 Patient's intentional underdosing of medication regimen for other reason; Z81.1 Family history of alcohol abuse and dependence; Z81.3 Family history of other psychoactive substance abuse and dependence
CPT/HCPCS: 36415; 71010; 80164; 80305; 80320; 80329; 81001; 82040; 82247; 82310; 82374; 82435; 82565; 82947; 83735; 84075; 84132; 84155; 84295; 84443; 84450; 84460; 84520; 85025; 90853; 99285

== ENCOUNTER 2017-08-07 08:10 | Emergency (ER) | payer MEDICARE ==
[~2017-08-07] VITALS: Ht 175.3 cm; Wt 95.3 kg
[~2017-08-07 08:10] MED LIST changes: -MAG HYD/AL HYD/SIMETH 30ML UDC PO PRN; +MIRT-17 PO; +NIC10R INH; +NICOTROL CARTRIDGE PO; +PAL3PT PO
[2017-08-07 08:12] VITALS: BP 116/80
--- NOTE | 2017-08-07 08:13 | ER Report ---
History and Physical Time Seen By MD: 08:12 HPI/ROS CHIEF COMPLAINT: Depression, alcohol intoxication, suicidal ideation HISTORY OF PRESENT ILLNESS: Patient is a 46-year-old male who is brought to the emergency department by the [place] police from the [facility] for suicidal ideation, depression and alcohol intoxication. This is similar to prior presentations. Patient was last admitted on July 09 for similar type symptoms. Patient is known on to be noncompliant with his medications. Patient has a history of schizoaffective disorder. Patient states that he was going to overdose on Seroquel and levothyroxine. Patient is being detained by the [place] [employer] because he was unwilling to come to the emergency department for evaluation. Patient himself is a poor and unreliable historian. Patient does appear to be intoxicated. REVIEW OF SYSTEMS: Constitutional: No fever, no chills. Eyes: No discharge. No pain ENT: No sore throat. Cardiovascular: No chest pain, no palpitations. Respiratory: No cough, no shortness of breath. Gastrointestinal: No abdominal pain, no vomiting. Genitourinary: No dysuria Psychiatric: Suicidal ideation with plan to overdose on his medications. Neurological: [No headache.] Allergies: Coded Allergies: No Known Allergies (Verified Allergy, Mild, 08/07/17) Home Meds Reported Medications [Nicotrol Cartridge] No Conflict Check, 1 EA PO PRN Y for NICOTINE REPLACEMENT 07/18/17 Nicotine (NICOTROL) 10 Mg/Inh Ctr, 10 MG INH PRN Y for NICOTINE REPLACEMENT 07/18/17 Multivits,Th W-Fe,Other Min (THERA-M) 1 Each Tablet, 1 EACH PO QDAY 07/18/17 Mirtazapine (REMERON) 15 Mg Tab.rapdis, 15 MG PO QHS 07/18/17 Paliperidone (INVEGA) 3 Mg Tab.er.24, 6 MG PO QHS 07/18/17 Divalproex Sodium (DEPAKOTE ER) 500 Mg Tab.er.24h, 1000 MG PO QHS, TAB 07/18/17 Levothyroxine Sodium (LEVOTHYROXINE SODIUM) 100 Mcg Tablet, 100 MCG PO QDAY, TAB 07/10/17 Past Medical/Surgical History The patient was exposed in utero to alcohol and drug abuse, per past report. He has no known allergies. Hypothyroidism. Poor compliance with medications. History of seizure disorder supposed to be taking Depakote. Hx Smoking: Yes Exposure to Second Hand Smoke?: Yes Hx Substance Use Disorder: Yes Hx Alcohol Use: Yes Constitutional Vital Sign - Last 24 Hours 08/07/17 08:12 Temp 98.6 Pulse 72 Resp 18 B/P (MAP) 116/80 Pulse Ox 92 O2 Delivery Room Air Physical Exam General Appearance: The patient is alert, has no immediate need for airway protection and no signs of toxicity. Patient appears intoxicated. Eyes: Pupils equal and round no pallor or injection. Patient with a few beats of horizontal nystagmus that is fatigable. ENT, Mouth: [Mucous membranes are dry; EtOH on breath Respiratory: There are no retractions, lungs are clear to auscultation. Cardiovascular: Regular rate and rhythm. Gastrointestinal: Abdomen is soft and non tender, no masses, bowel sounds normal. Neurological: Awake, alert Skin: Warm and dry, no rashes. Musculoskeletal: Neck is supple non tender. Extremities are nontender, nonswollen and have full range of motion. Psychiatric: Patient with suicidal ideation and plan. Medical Decision Making Data Points Result Diagram: 08/07/17 0833 08/07/17 0833 Laboratory Hematology Test 08/07/17 08:33 08/07/17 10:08 Red Blood Count 5.70 M/uL (4.00-5.60) Mean Corpuscular Volume 90.3 fL (80.0-96.0) Mean Corpuscular Hemoglobin 30.4 pg (26.0-33.0) Mean Corpuscular Hemoglobin Concent 33.6 g/dL (32.0-36.0) Red Cell Distribution Width 14.5 % (11.5-14.5) Mean Platelet Volume 8.0 fL (7.2-11.1) Neutrophils (%) (Auto) 55.0 % (39.4-72.5) Lymphocytes (%) (Auto) 33.3 % (17.6-49.6) Monocytes (%) (Auto) 9.0 % (4.1-12.4) Eosinophils (%) (Auto) 1.7 % (0.4-6.7) Basophils (%) (Auto) 1.0 % (0.3-1.4) Nucleated RBC Relative Count (auto) 0.1 /100WBC Neutrophils # (Auto) 3.2 K/uL (2.0-7.4) Lymphocytes # (Auto) 1.9 K/uL (1.3-3.6) Monocytes # (Auto) 0.5 K/uL (0.3-1.0) Eosinophils # (Auto) 0.1 K/uL (0.0-0.5) Basophils # (Auto) 0.1 K/uL (0.0-0.1) Nucleated RBC Absolute Count (auto) 0.00 K/uL Sodium Level 148 mmol/L (137-145) Potassium Level 3.9 mmol/L (3.5-5.0) Chloride Level 106 mmol/L (98-107) Carbon Dioxide Level 27 mmol/L (22-30) Blood Urea Nitrogen 9 mg/dl (9-21) Creatinine 0.90 mg/dl (0.66-1.25) Glomerular Filtration Rate Calc > 60.0 Random Glucose 96 mg/dl (75-110) Calcium Level 9.2 mg/dl (8.4-10.2) Magnesium Level 1.5 mg/dl (1.7-2.2) Total Bilirubin 0.5 mg/dl (0.2-1.3) Aspartate Amino Transf (AST/SGOT) 65 U/L (0-35) Alanine Aminotransferase (ALT/SGPT) 35 U/L (0-56) Alkaline Phosphatase 107 U/L (0-126) Total Protein 8.4 gm/dl (6.3-8.2) Albumin 4.6 g/dl (3.5-5.0) Thyroid Stimulating Hormone (TSH) 11.10 uIU/ml (0.46-4.68) Salicylates Level < 10 mg/L Salicylate Last Dose Date unk Acetaminophen Level < 10 ug/ml Valproic Acid (Depakene) Level < 10.0 ug/ml Serum Alcohol 214 mg/dl Urine Color Yellow Urine Clarity Clear Urine pH 5.0 pH (4.8-9.5) Urine Specific [place] 1.019 Urine Protein 30 mg/dL (NEGATIVE) Urine Glucose (UA) Negative mg/dL (NEGATIVE) Urine Ketones Trace mg/dL (NEGATIVE) Urine Blood Small (NEGATIVE) Urine Nitrite Negative (NEGATIVE) Urine Bilirubin Negative (NEGATIVE) Urine Urobilinogen 2.0 mg/dL (0.2-1.9) Urine Leukocyte Esterase Negative (NEGATIVE) Urine RBC 1 /HPF (0-2/HPF) Urine WBC 1 /HPF (0-5/HPF) Urine Squamous Epithelial Cells None /LPF (</=FEW) Urine Bacteria Negative /HPF (NONE-FEW) Urine Hyaline Casts Few /LPF (NONE-FEW) Urine Mucus Few /HPF (NONE-FEW) Urine Opiates Screen Negative Urine Barbiturates Screen Negative Ur Tricyclic Antidepressants Screen Negative Urine Phencyclidine Screen Negative Urine Amphetamines Screen Negative Urine Benzodiazepines Screen Negative Urine Cocaine Screen Negative Urine Cannabinoids Screen Positive Chemistry Test 08/07/17 08:33 08/07/17 10:08 White Blood Count 5.7 k/uL (4.5-11.0) Red Blood Count 5.70 M/uL (4.00-5.60) Hemoglobin 17.3 g/dL (14.0-18.0) Hematocrit 51.5 % (42.0-52.0) Mean Corpuscular Volume 90.3 fL (80.0-96.0) Mean Corpuscular Hemoglobin 30.4 pg (26.0-33.0) Mean Corpuscular Hemoglobin Concent 33.6 g/dL (32.0-36.0) Red Cell Distribution Width 14.5 % (11.5-14.5) Platelet Count 260 K/uL (150-450) Mean Platelet Volume 8.0 fL (7.2-11.1) Neutrophils (%) (Auto) 55.0 % (39.4-72.5) Lymphocytes (%) (Auto) 33.3 % (17.6-49.6) Monocytes (%) (Auto) 9.0 % (4.1-12.4) Eosinophils (%) (Auto) 1.7 % (0.4-6.7) Basophils (%) (Auto) 1.0 % (0.3-1.4) Nucleated RBC Relative Count (auto) 0.1 /100WBC Neutrophils # (Auto) 3.2 K/uL (2.0-7.4) Lymphocytes # (Auto) 1.9 K/uL (1.3-3.6) Monocytes # (Auto) 0.5 K/uL (0.3-1.0) Eosinophils # (Auto) 0.1 K/uL (0.0-0.5) Basophils # (Auto) 0.1 K/uL (0.0-0.1) Nucleated RBC Absolute Count (auto) 0.00 K/uL Glomerular Filtration Rate Calc > 60.0 Calcium Level 9.2 mg/dl (8.4-10.2) Magnesium Level 1.5 mg/dl (1.7-2.2) Total Bilirubin 0.5 mg/dl (0.2-1.3) Aspartate Amino Transf (AST/SGOT) 65 U/L (0-35) Alanine Aminotransferase (ALT/SGPT) 35 U/L (0-56) Alkaline Phosphatase 107 U/L (0-126) Total Protein 8.4 gm/dl (6.3-8.2) Albumin 4.6 g/dl (3.5-5.0) Thyroid Stimulating Hormone (TSH) 11.10 uIU/ml (0.46-4.68) Salicylates Level < 10 mg/L Salicylate Last Dose Date unk Acetaminophen Level < 10 ug/ml Valproic Acid (Depakene) Level < 10.0 ug/ml Serum Alcohol 214 mg/dl Urine Color Yellow Urine Clarity Clear Urine pH 5.0 pH (4.8-9.5) Urine Specific [place] 1.019 Urine Protein 30 mg/dL (NEGATIVE) Urine Glucose (UA) Negative mg/dL (NEGATIVE) Urine Ketones Trace mg/dL (NEGATIVE) Urine Blood Small (NEGATIVE) Urine Nitrite Negative (NEGATIVE) Urine Bilirubin Negative (NEGATIVE) Urine Urobilinogen 2.0 mg/dL (0.2-1.9) Urine Leukocyte Esterase Negative (NEGATIVE) Urine RBC 1 /HPF (0-2/HPF) Urine WBC 1 /HPF (0-5/HPF) Urine Squamous Epithelial Cells None /LPF (</=FEW) Urine Bacteria Negative /HPF (NONE-FEW) Urine Hyaline Casts Few /LPF (NONE-FEW) Urine Mucus Few /HPF (NONE-FEW) Urine Opiates Screen Negative Urine Barbiturates Screen Negative Ur Tricyclic Antidepressants Screen Negative Urine Phencyclidine Screen Negative Urine Amphetamines Screen Negative Urine Benzodiazepines Screen Negative Urine Cocaine Screen Negative Urine Cannabinoids Screen Positive Toxicology Test 08/07/17 08:33 08/07/17 10:08 Salicylates Level < 10 mg/L Salicylate Last Dose Date unk Acetaminophen Level < 10 ug/ml Valproic Acid (Depakene) Level < 10.0 ug/ml Serum Alcohol 214 mg/dl Urine Opiates Screen Negative Urine Barbiturates Screen Negative Ur Tricyclic Antidepressants Screen Negative Urine Phencyclidine Screen Negative Urine Amphetamines Screen Negative Urine Benzodiazepines Screen Negative Urine Cocaine Screen Negative Urine Cannabinoids Screen Positive Urinalysis Test 08/07/17 10:08 Urine Color Yellow Urine Clarity Clear Urine pH 5.0 pH (4.8-9.5) Urine Specific [place] 1.019 Urine Protein 30 mg/dL (NEGATIVE) Urine Glucose (UA) Negative mg/dL (NEGATIVE) Urine Ketones Trace mg/dL (NEGATIVE) Urine Blood Small (NEGATIVE) Urine Nitrite Negative (NEGATIVE) Urine Bilirubin Negative (NEGATIVE) Urine Urobilinogen 2.0 mg/dL (0.2-1.9) Urine Leukocyte Esterase Negative (NEGATIVE) Urine RBC 1 /HPF (0-2/HPF) Urine WBC 1 /HPF (0-5/HPF) Urine Squamous Epithelial Cells None /LPF (</=FEW) Urine Bacteria Negative /HPF (NONE-FEW) Urine Hyaline Casts Few /LPF (NONE-FEW) Urine Mucus Few /HPF (NONE-FEW) EKG/Imaging EKG Interpretation EKG shows normal sinus rhythm with ventricular rate of 75 bpm. Monitor Interpretation: Normal Sinus Rhythm ED Course/Re-evaluation ED Course 08/07/2017 8:44:02 am patient with suicidal ideation plan. We'll perform medical screening evaluation and rule out electronic title 25 behavioral medicine fci form. 08/07/2017 10:35:27 am patient successfully chemically restrained with IM ketamine. Patient is resting comfortably at this time. Urinalysis was obtained. We will admit to behavioral medicine with once patient is more awake I will update the psychiatrist with his ED course. Re-evaluation 08/07/2017 9:53:27 am patient becoming increasingly agitated is verbally threatening both staff and police. Patient is unwilling to give urinalysis. Patient threatened staff with physical violence if they attempt to obtain a urine. Plan at this time will be chemical sedation and agitation control with 2 mg/kg of IM ketamine. Once patient is sedated we will obtain urine by catheter specimen. Decision to Disposition Date: Aug 07, 2017 Decision to Disposition Time: 10:43 Depart Departure Latest Vital Signs Vital Signs Date Time Temp Pulse Resp B/P (MAP) Pulse Ox O2 Delivery O2 Flow Rate FiO2 08/07/17 08:12 98.6 72 18 116/80 92 Room Air Impression: Primary Impression: Depression with suicidal ideation Additional Impression: Schizoaffective disorder Condition: Improved Disposition: XFER TO [facility] (To [place]) Problem Qualifiers Additional Impression: Schizoaffective disorder Schizoaffective disorder type: unspecified Qualified Codes: F25.9 - Schizoaffective disorder, unspecified SOURAV OLIVAS MD Aug 07, 2017 08:13
--- NOTE | 2017-08-07 08:27 | BHS - Psychiatric Evaluation ---
ER - Title 25 MHE Evaluation Title 25 Evaluation Patient Detained By: Law Enforcement Referral Source: [place] Date Patient Detained: Aug 07, 2017 Time Patient Detained: 07:53 Date Skilled Nursing Expires: Aug 10, 2017 Time Skilled Nursing Expires: 08:25 Legal Status: Police Hold: Yes Legal Status: Residence: [facility] Resident Assessment Data Provided By: Patient, Law Enforcement HPI/ROS: Patient feeling suicidal as morning to call suicide line with intention to overdose on pills. He does admit to alcohol abuse. Patient is feeling suicidal with plan but did not wish to go to the hospital. Patient was detained by the [place] [employer] brought to the emergency department for medical and psychiatric evaluation. Admit due to SI or Attempt: Yes Suicide Plan: Has Plan with Access Alcohol or Drugs Involved: Yes (admits to ETOH this AM) Current Intoxication Info: Admits to ETOH this AM Emergency Medical/Psych Tx: Prior suicidal ideation, ETOH intoxication, noncompliant with meds. Is Patient Info Reliable: No Is Collateral Info Reliable: Yes Current Home Psych Meds: See med reconciliation Mental Status Exam General Appearance: Unkept, Tearful Speech: Slurred Mood: Dysthmic/Depressed Affect: Flat, Withdrawn Thought Process: Organized Thought Content: Suicidal Ideation Sensorium: Other (intoxicated) Cognition: Alert & Oriented-Person, Alert & Oriented-Place, Alert & Oriented- Time, [id number] Memory: Immediate, Recent, Remote Insight Judgment: Poor Sleep: Insomnia Hallucinations: Denies Delusions: Denies Current Risk & History Current Dangerous Risk Assessm: Current Suicide Ideation Past Dangerous Risk Assessm: Suicide Ideation-last 6mo Prior Alcohol/Drug Abuse Hx of ETOH abuse Sequelae of Substance Abuse: frequent ED visits Prior Inpt/Outpt Tx for Abuse: Hx of admission for detox Previous Suicide Attempt: Past - Low Lethality Previous Psychiatric Illness: Yes (schizoaffective disorder) Previous Psychiatric Treatment: Yes Previous Treatment Description inpatient admission to [facility]; last admit was 07/10/17 Risk Assessment & Disposition Evaluated Risk Assessment: high risk for self harm; poor insight; requires immediate eval and psychiatric admission Impression: Primary Impression: Alcohol abuse Additional Impressions: Depression with suicidal ideation Schizoaffective disorder Meets Mental Illness Req.: Yes Meets Dangerousness Req.: Yes Emergency Skilled Nursing to be: Upheld Date of Decision: Aug 07, 2017 Time of Decision: 07:53 Patient is Medically Stable at: Yes Disposition: [facility] (inpatient) Problem Qualifiers Additional Impressions: Schizoaffective disorder Schizoaffective disorder type: unspecified Qualified Codes: F25.9 - Schizoaffective disorder, unspecified SOURAV OLIVAS MD Aug 07, 2017 08:27
--- NOTE | 2017-08-07 08:30 | EKG ---
FACILITY[place] [facility] [place]IENT NAME: ANASTASIIA VILLAGOMEZ : [id number] MR: [id number] V: [id number] EXAM DATE: ORDERING PHYSICIAN: SOURAV OLIVAS TECHNOLOGIST: GILDA Hardy Reason : Blood Pressure : / mmHG Vent. Rate : 075 BPM Atrial Rate : 075 BPM P-R Int : 132 ms QRS Dur : 094 ms QT Int : 406 ms P-R-T Axes : 059 088 -43 degrees QTc Int : 453 ms Sinus rhythm Appears to have nonspecific ST-T findings inferolaterally Diffuse artifact makes interpretation difficult - repeat if needed Abnormal ECG No previous ECGs available Confirmed by TERENCE CARR ([id number] on 08/07/2017 1:33:28 PM Referred By: DEISY Confirmed By:TERENCE CARR
[2017-08-07 08:45] LABS: PLATELET COUNT, AUTOMATED 260 K/uL (150-450)
[2017-08-07] MEDS ORDERED: KETAMINE HCL 500 MG/5 ML VIAL ONE (09:53)
[2017-08-07] MEDS ORDERED: KETAMINE HCL 500 MG/5 ML VIAL IM ONE (09:55)
== END 2017-08-07 11:02 ==
LOC: ER 08:14
DX: F25.9 Schizoaffective disorder, unspecified (principal); F32.9 Major depressive disorder, single episode, unspecified; R45.851 Suicidal ideations
CPT/HCPCS: 36415; 80164; 80305; 81001; 83735; 84443; 85025; 93005; 96372; 99285; G0480; 80320; 80329; 82040; 82247; 82310; 82374; 82435; 82565; 82947; 84075; 84132; 84155; 84295; 84450; 84460; 84520

== ENCOUNTER 2017-08-07 10:15 | Inpatient (IN) | payer MEDICARE ==
[~2017-08-07] VITALS: Ht 175.3 cm; Wt 95.3 kg
[2017-08-07] MEDS ORDERED: LORazepam 2 MG/ML VIAL IM PRN (10:55)
[2017-08-07] MEDS ORDERED: diphenhydrAMINE 50 MG/ML VIAL IM PRN (10:55)
[2017-08-07] MEDS ORDERED: OLANZapine 10 MG VIAL IM ONLY PRN (10:55)
[2017-08-07] MEDS ORDERED: DIAZEPAM 10 MG TAB PO PRN (10:55)
[2017-08-07] MEDS ORDERED: MAG HYD/AL HYD/SIMETH 30ML UDC PO PRN (10:55)
[2017-08-07] MEDS ORDERED: WATER FOR INJECTION 10 ML VIAL IM ONLY PRN (10:55)
[2017-08-07 11:31] VITALS: BP 160/88
[2017-08-07 15:05] VITALS: BP 140/50
[2017-08-07 19:30] VITALS: BP 148/78
[2017-08-07] MEDS ORDERED: DIVALPROEX SOD ER 500 MG TABSR PO SCH (21:00)
[2017-08-07] MEDS: MIRTAZAPINE 15 MG TAB PO SCH (21:00)
[2017-08-07] MEDS ORDERED: PALIPERIDONE 3 MG TAB.ER.24 PO SCH (21:00)
[2017-08-07] MEDS ORDERED: DIVALPROEX SOD ER 250 MG TABSR PO SCH ×2 (21:00)
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
[2017-08-08 03:57] VITALS: BP 133/69
[2017-08-08] MEDS: LEVOTHYROXINE SOD 0.1 MG TAB PO SCH (05:52)
[2017-08-08 08:25] VITALS: BP 124/76
[2017-08-08] MEDS: MULTIVITAMINS PO SCH (08:28)
[2017-08-08 12:25] VITALS: BP 118/82
[2017-08-08] MEDS: IBUPROFEN 600 MG TAB PO PRN (15:42)
--- NOTE | 2017-08-08 19:13 | HISTORY AND PHYSICAL ---
DATE OF ADMISSION: August 07, 2017 Patient was interviewed on the morning of August 08, 2017 at approximately 1000 hours. PRESENTING PROBLEM/CHIEF COMPLAINT Patient admitted under an emergency detainment after police were called to the hotel room. HISTORY OF PRESENT ILLNESS This is a very well-known 46-year-old male who has had a series of admissions here to the Behavioral Health Unit with multiple outpatient plans put in place. Patient continues to fail at outpatient treatment. Patient calling crisis line from local hotel room intoxicated, using cannabis and not taking prescribed medications. Patient voicing intention to overdose on medications. Police were called to patient's hotel room. Subsequently patient was emergency detained and brought to the emergency room. Patient cooperative in the emergency room overall, however, patient was given ketamine as a sedating agent. Patient brought to Behavioral Health Unit without any further agitation and patient cooperative with interview process. 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 Patient got into a conflict in a [facility] skilled nursing and was eventually returned to the [facility], and this most recent admission was within the last month where patient was discharged on July 18, 2017. At this time patient lethargic , intoxicated, once again off of his medications including Synthroid for his hypothyroidism. Patient demonstrating an elevated TSH in the ER again and absent Depakote levels. MENTAL HEALTH HISTORY, FAMILY PSYCHIATRIC HISTORY, MEDICAL, SOCIAL, LEGAL HISTORY AND SUBSTANCE ABUSE HISTORY Please see previous H and P from recent admission. PHYSICAL EXAMINATION GENERAL: Please see emergency room note. Notable for a 46-year-old male in no acute medical distress, currently intoxicated. VITAL SIGNS: At the time of admission temperature 98.6, pulse 72, respiratory rate 18, blood pressure 116/80 and pulse oximetry 92 on room air. LABORATORY DATA CBC unremarkable overall. Chemistry panel notable for TSH 11.10 and magnesium slightly low at 1.5. Urinalysis notable for small urine blood and some urine protein present, otherwise unremarkable. Toxicology screen positive for cannabis with a serum alcohol level of 214, negative for other substances of abuse. Nondetectable Depakote level. MENTAL STATUS EXAMINATION GENERAL APPEARANCE, BEHAVIOR AND ATTITUDE: This is a well-known 46-year-old male interacting in a way considered baseline to some degree for this patient, who has been admitted multiple times to the Behavioral Health Unit. Patient making poor eye contact, lethargic, but cooperative overall with interview. SPEECH: Soft and slowed at times. Patient has baseline speech impediment. MOOD: Described as depressed. AFFECT: Constricted, mood congruent. THOUGHT PROCESSES: Goal directed to some degree. Patient reporting, "I need to go to [place]." No loose associations or flight of ideas. THOUGHT CONTENT: Free of auditory or visual hallucinations at this point. Denying ideas of reference, thought broadcastings, delusions, obsessions, compulsions. Patient stating that suicidal ideation returns when patient is intoxicated and off meds. Denying homicidal ideation. SENSORIUM: Clear. COGNITION: Alert and oriented to person, place, time and situation. MEMORY: Immediate, recent and remote estimated grossly intact. INTELLIGENCE: Patient below average based on multiple interviews and historical knowledge of this patient who suffers from borderline intellectual functioning versus mild intellectual impairment. INSIGHT AND JUDGMENT: Limited due to alcohol and cannabis use and level of cognition. ASSESSMENT This is a very well-known 46-year-old male who has had multiple failures since returning to the [facility]. Interestingly, patient apparently according to his own history has done well in [place] after being discharged from the [facility] and remaining in a program in [place] for many years. We will continue to evaluate potential placement in this program again versus admission through the [facility]. DIAGNOSES PER DSM-V Schizoaffective disorder, bipolar type. Alcohol intoxication. Alcohol use disorder severe. 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 Cannabis use disorder. Alcohol-induced mood disorder. Mood disorder associated with general medical condition. Consistently untreated hypothyroidism on an outpatient basis. Patient also having stressors of illness. PLAN 1. Admit to the unit. 2. Necessary precautions to be implemented. 3. Patient will participate in individual and group therapy. 4. Medications have been historically helpful to the patient, will be restarted. 5. Collateral information to be gained as necessary. 6. Estimated length of stay: Patient will need hearings to be committed to the [facility] unless alternative placement can be found. [facility]
[2017-08-08 19:17] VITALS: BP 97/56
[2017-08-08] MEDS: MIRTAZAPINE 15 MG TAB PO SCH (20:31)
[2017-08-08] MEDS ORDERED: DIVALPROEX SOD ER 500 MG TABSR PO SCH (21:00)
[2017-08-09] MEDS: LEVOTHYROXINE SOD 0.1 MG TAB PO SCH (05:37)
[2017-08-09 05:45] VITALS: BP 124/73
[2017-08-09] MEDS: MULTIVITAMINS PO SCH (08:11)
--- NOTE | 2017-08-09 10:50 | BHS Progress Note ---
[facility] - Subjective Progress Notes Subjective Patient remains cooperative stating "I've changed my mind, I want to go home". Patient demonstrating repeated inability to remain outside of a hospital setting. Will continue with commitment process at this point. Patient is tolerant of restarting medications. Appetite and sleep good. No other concerns. Suicidal Ideation: None Homicidal Ideation: None [facility] - Objective Physical Exam Vital Signs Vital Signs Date Time Temp Pulse Resp B/P (MAP) Pulse Ox O2 Delivery O2 Flow Rate FiO2 08/09/17 05:45 98.1 48 15 124/73 (90) 91 Room Air 08/08/17 03:57 2.0 Muscle Strength and Tone: WNL Gait and Station: Steady [facility] Medications Reviewed: Side Effects, Benefits of Medication, Risks Allergies Reviewed: Yes Mental Status Exam General Appearance: Casual, No Good Eye Contact, Cooperative, Polite, Good Interaction, No Tearful, No Psychomotor Agitation, No Psychomotor Retardation, No Bizarre Mannerisms, No Tics Speech: Clear, Normal Volume, Normal Tone, Delayed Mood: Dysthmic/Depressed Affect: Calm, No Sad, Neutral, No Anxious, No Agitated Thought Process: Goal Directed, No Loose Associations, No Flight of Ideas Thought Content: No Suicidal Ideation (denies today), No Homicidal Ideation, No Delusions, No Auditory Halllucinations, No Visual Hallucinations, No Thought Broadcasting, No Ideas of Reference, No Obsessions, Compulsions Sensorium: Clear Cognition: Alert & Oriented-Person, Alert & Oriented-Place, Alert & Oriented- Time, Nkhyz-Iyldqssm-Goxxhzbds (partially) Memory: Immediate, Recent, Remote Intelligence: Below Average (borderline intelectual functioning verses mild intelectual impairment. ) Insight Judgment: Poor (limited by intelectual ability) [facility] Assessment and Plan [id number] Encounter Date: Aug 09, 2017 Umeo-cc-Yomw Encounter Time: 08:40 [facility] Plan: Necessary Precautions, Individual/Group Therapy, Admin/Titrate Meds, Educate Patient Tobacco Medications: Not Appropriate Condition Problems: (1) Alcohol-induced mood disorder with depressive symptoms Optional Permanent Comment: significant dysphoria follows alcohol intoxication in this patient. Last Edited By: Lebron Menendez on Aug 09, 2017 10 :47 Status: Acute (2) Schizoaffective disorder Status: Chronic (3) Alcohol dependence Status: Chronic (4) Hypothyroidism Status: Chronic Assessment & Plan: inability to reliably take medication for this condition on an outpatient basis, leading to dysphoria. (5) Cannabis use disorder, severe, in controlled environment Status: Chronic Assessment & Plan: continues to use on an outpatient basis. Condition 1. continue to re-introduce medications. 2. proceed with hearing process for commitment. Problem Qualifiers (1) Schizoaffective disorder: Schizoaffective disorder type: bipolar Qualified Codes: F25.0 - Schizoaffective disorder, bipolar type LEBRON MENENDEZ MD Aug 09, 2017 10:50
[2017-08-09] MEDS: MIRTAZAPINE 15 MG TAB PO SCH (20:15)
[2017-08-09] MEDS ORDERED: DIVALPROEX SOD ER 500 MG TABSR PO SCH (21:00)
[2017-08-10] MEDS: LEVOTHYROXINE SOD 0.1 MG TAB PO SCH (05:48)
[2017-08-10 06:13] VITALS: BP 110/65
[2017-08-10] MEDS: MULTIVITAMINS PO SCH (08:17)
--- NOTE | 2017-08-10 10:19 | BHS Progress Note ---
[facility] - Subjective Progress Notes Subjective Patient stating "I told you I want to fucking go home" to this provider this AM. Patient overall remaining cooperative on the unit, and tolerant of re- introduction of medications that patient historically stops immediately upon leaving hospital. Alcohol withdrawal considered complete, Appetite and sleep remain good. Will continue to work to place patient in [facility] if no suitable alternative can be found. Patient has a history of multiple immediate fails at outpatient management. No other concerns today. Suicidal Ideation: None Homicidal Ideation: None [facility] - Objective Physical Exam Vital Signs Vital Signs Date Time Temp Pulse Resp B/P (MAP) Pulse Ox O2 Delivery O2 Flow Rate FiO2 08/10/17 06:13 97.3 50 15 110/65 (80) 89 Room Air 1.0 Muscle Strength and Tone: WNL Gait and Station: Steady [facility] Medications Reviewed: Side Effects, Benefits of Medication, Risks Allergies Reviewed: Yes Mental Status Exam General Appearance: Casual, No Good Eye Contact, No Cooperative, No Polite, No Good Interaction, No Tearful, No Psychomotor Agitation, No Psychomotor Retardation, No Bizarre Mannerisms, No Tics Speech: Clear, Normal Volume, Normal Tone, Delayed Mood: Dysthmic/Depressed Affect: Calm, No Sad, Neutral, No Anxious, No Agitated Thought Process: Goal Directed, No Loose Associations, No Flight of Ideas Thought Content: No Suicidal Ideation (denies today), No Homicidal Ideation, No Delusions, No Auditory Halllucinations, No Visual Hallucinations, No Thought Broadcasting, No Ideas of Reference, No Obsessions, Compulsions Sensorium: Clear Cognition: Alert & Oriented-Person, Alert & Oriented-Place, Alert & Oriented- Time, Nxddg-Flagdttl-Jhnyyuuoq (partially) Memory: Immediate, Recent, Remote Intelligence: Below Average (borderline intelectual functioning verses mild intelectual impairment. ) Insight Judgment: Poor (limited by intelectual ability) [facility] Assessment and Plan Vdmm-[id number] Encounter Date: Aug 10, 2017 Lybm-tz-Pocu Encounter Time: 10:00 [facility] Plan: Necessary Precautions, Individual/Group Therapy, Admin/Titrate Meds, Educate Patient Tobacco Medications: Not Appropriate Condition Problems: (1) Alcohol-induced mood disorder with depressive symptoms Optional Permanent Comment: significant dysphoria follows alcohol intoxication in this patient. Last Edited By: Lebron Menendez on Aug 09, 2017 10 :47 Status: Acute (2) Schizoaffective disorder Status: Chronic (3) Alcohol dependence Status: Chronic (4) Hypothyroidism Status: Chronic Assessment & Plan: inability to reliably take medication for this condition on an outpatient basis, leading to dysphoria. (5) Cannabis use disorder, severe, in controlled environment Status: Chronic Assessment & Plan: continues to use on an outpatient basis. Condition 1. continue treatment. 2. increase Depakote. 3. explore placement options verses [facility]. Problem Qualifiers (1) Schizoaffective disorder: Schizoaffective disorder type: bipolar Qualified Codes: F25.0 - Schizoaffective disorder, bipolar type LEBRON MENENDEZ MD Aug 10, 2017 10:19
[2017-08-10] MEDS ORDERED: OLANZapine 5 MG TAB PO PRN (13:15)
[2017-08-10] MEDS: MIRTAZAPINE 15 MG TAB PO SCH (20:44)
[2017-08-10] MEDS: DIVALPROEX SOD ER 500 MG TABSR PO SCH (20:44)
[2017-08-11] MEDS: LEVOTHYROXINE SOD 0.1 MG TAB PO SCH (06:04)
[2017-08-11] MEDS: MULTIVITAMINS PO SCH (08:12)
--- NOTE | 2017-08-11 08:56 | BHS Progress Note ---
S - Subjective Progress Notes Subjective Patient continues to overall cooperate on the unit. No aggression or para- suicidal behavior on the unit. Mood remains variable, recently frustrated as patient has "changed his mind" and no longer desires to return [place] [facility]. Patient's appetite and sleep good on the unit, as medications are re- introduced. Will continue to proceed with hearings for commitment to [facility]. No other concerns today. Suicidal Ideation: None Homicidal Ideation: None [facility] - Objective Physical Exam Vital Signs Vital Signs Date Time Temp Pulse Resp B/P (MAP) Pulse Ox O2 Delivery O2 Flow Rate FiO2 08/10/17 06:13 97.3 50 15 110/65 (80) 89 Room Air 1.0 Muscle Strength and Tone: WNL Gait and Station: Steady [facility] Medications Reviewed: Side Effects, Benefits of Medication, Risks Allergies Reviewed: Yes Mental Status Exam General Appearance: Casual, No Good Eye Contact, No Cooperative, No Polite, No Good Interaction, No Tearful, No Psychomotor Agitation, No Psychomotor Retardation, No Bizarre Mannerisms, No Tics Speech: Clear, Normal Volume, Normal Tone, Delayed Mood: Dysthmic/Depressed Affect: Calm, No Sad, Neutral, No Anxious, No Agitated Thought Process: Goal Directed, No Loose Associations, No Flight of Ideas Thought Content: No Suicidal Ideation (denies today), No Homicidal Ideation, No Delusions, No Auditory Halllucinations, No Visual Hallucinations, No Thought Broadcasting, No Ideas of Reference, No Obsessions, Compulsions Sensorium: Clear Cognition: Alert & Oriented-Person, Alert & Oriented-Place, Alert & Oriented- Time, Fbvyw-Hsekdiku-Xumveznmw (partially) Memory: Immediate, Recent, Remote Intelligence: Below Average (borderline intelectual functioning verses mild intelectual impairment. ) Insight Judgment: Poor (limited by intelectual ability) [facility] Assessment and Plan Ehqu-ko-Cywd Encounter Date: Aug 11, 2017 Eueh-cz-Ycko Encounter Time: 08:40 [facility] Plan: Necessary Precautions, Individual/Group Therapy, Admin/Titrate Meds, Educate Patient Tobacco Medications: Not Appropriate Condition Problems: (1) Alcohol-induced mood disorder with depressive symptoms Optional Permanent Comment: significant dysphoria follows alcohol intoxication in this patient. Last Edited By: Lebron Menendez on Aug 09, 2017 10 :47 Status: Acute (2) Schizoaffective disorder Status: Chronic (3) Alcohol dependence Status: Chronic (4) Hypothyroidism Status: Chronic Assessment & Plan: inability to reliably take medication for this condition on an outpatient basis, leading to dysphoria. (5) Cannabis use disorder, severe, in controlled environment Status: Chronic Condition 1. continue treatment. 2. continue medications. 3. proceed with hearings Problem Qualifiers (1) Schizoaffective disorder: Schizoaffective disorder type: bipolar Qualified Codes: F25.0 - Schizoaffective disorder, bipolar type LEBRON MENENDEZ MD Aug 11, 2017 08:56
[2017-08-11 09:55] VITALS: BP 111/72
[2017-08-11] MEDS: MIRTAZAPINE 15 MG TAB PO SCH (20:23)
[2017-08-11] MEDS: DIVALPROEX SOD ER 500 MG TABSR PO SCH (20:23)
[2017-08-12] MEDS: LEVOTHYROXINE SOD 0.1 MG TAB PO SCH (05:59)
[2017-08-12] MEDS: MULTIVITAMINS PO SCH (08:25)
--- NOTE | 2017-08-12 10:13 | BHS Progress Note ---
[facility] - Subjective Progress Notes Subjective "I'm just very irritated, they are sending me to the [facility] and I don't want to go. My mind is scrambled right now." Rates depression "None, I want to get the hell out of here." Anger "10" Denies anxiety Court date upcoming My sleep was horrible last night. Since I've been here, I stay in my room all day." Suicidal Ideation: None Homicidal Ideation: None [facility] - Objective Physical Exam Muscle Strength and Tone: WNL Gait and Station: Steady [facility] Medications Reviewed: Side Effects, Benefits of Medication, Risks Allergies Reviewed: Yes Mental Status Exam General Appearance: Casual, No Good Eye Contact, No Cooperative, No Polite, No Good Interaction, No Tearful, No Psychomotor Agitation, No Psychomotor Retardation, No Bizarre Mannerisms, No Tics Speech: Clear, Normal Volume, Normal Tone, Delayed Mood: Dysthmic/Depressed Affect: Calm, Sad (Denies depression although appears sad, poor eye contact during interview), Neutral, No Anxious, No Agitated Thought Process: Goal Directed, No Loose Associations, No Flight of Ideas Thought Content: No Suicidal Ideation (denies today), No Homicidal Ideation, No Delusions, No Auditory Halllucinations, No Visual Hallucinations, No Thought Broadcasting, No Ideas of Reference, No Obsessions, Compulsions Sensorium: Clear Cognition: Alert & Oriented-Person, Alert & Oriented-Place, Alert & Oriented- Time, Yxhsu-Oakktrxm-Ujrwqhexc (partially) Memory: Immediate, Recent, Remote Intelligence: Below Average (borderline intelectual functioning verses mild intelectual impairment. ) Insight Judgment: Poor (limited by intelectual ability) Lab Vital Signs Date Time Temp Pulse Resp B/P (MAP) Pulse Ox O2 Delivery O2 Flow Rate FiO2 08/11/17 09:55 98.4 59 16 111/72 (85) 92 Room Air 08/10/17 06:13 1.0 Allergies Coded Allergies No Known Allergies (Verified Allergy, Mild, 08/07/17) [facility] Assessment and Plan Aoui-oz-Eeyp Encounter Date: Aug 12, 2017 Leec-kb-Pkzl Encounter Time: 10:14 [facility] Plan: Necessary Precautions, Individual/Group Therapy, Admin/Titrate Meds, Educate Patient Tobacco Medications: Not Appropriate Condition Problems: (1) Schizoaffective disorder Status: Chronic (2) Hypothyroidism Status: Chronic (3) Cannabis use disorder, severe, in controlled environment Status: Chronic (4) Alcohol-induced mood disorder with depressive symptoms Optional Permanent Comment: significant dysphoria follows alcohol intoxication in this patient. Last Edited By: Дмитрий De Jesus on Aug 09, 2017 10 :47 Status: Acute (5) Alcohol withdrawal Status: Resolved Condition Continue current treatment Maintain precautions Awaiting court hearing, report to be submitted Monday Await transfer [facility] Problem Qualifiers (1) Schizoaffective disorder: Schizoaffective disorder type: bipolar Qualified Codes: F25.0 - Schizoaffective disorder, bipolar type RINA TELLO NP Aug 12, 2017 10:13
[2017-08-12 11:00] VITALS: BP 116/77
[2017-08-12] MEDS: DIVALPROEX SOD ER 500 MG TABSR PO SCH (20:49)
[2017-08-12] MEDS: MIRTAZAPINE 15 MG TAB PO SCH (20:49)
[2017-08-13] MEDS: LEVOTHYROXINE SOD 0.1 MG TAB PO SCH (06:11)
[2017-08-13] MEDS: MULTIVITAMINS PO SCH (08:10)
--- NOTE | 2017-08-13 10:56 | BHS Progress Note ---
[facility] - Subjective Progress Notes Subjective "Maybe I need to get help. I guess the [facility], maybe I should go back to [place]. I'm just so frustrated about going back." Denies depression, appears depressed, no eye contact Denies anger, reports anger, frustration Denies urge for self harm, suicidal or homicidal ideation Attended group yesterday,encourage out of bed daytime hours, walking in hallway Suicidal Ideation: None Homicidal Ideation: None [facility] - Objective Physical Exam Muscle Strength and Tone: WNL Gait and Station: Steady [facility] Medications Reviewed: Side Effects, Benefits of Medication, Risks Allergies Reviewed: Yes Mental Status Exam General Appearance: Casual, No Good Eye Contact, No Cooperative, No Polite, No Good Interaction, No Tearful, No Psychomotor Agitation, No Psychomotor Retardation, No Bizarre Mannerisms, No Tics, Other (poor eye contact; multiple tatoos, piercings) Speech: Clear, Normal Volume, Normal Tone, Delayed Mood: Dysthmic/Depressed Affect: Calm, Sad (Denies depression although appears sad, poor eye contact during interview), Neutral, No Anxious, No Agitated Thought Process: Goal Directed, No Loose Associations, No Flight of Ideas Thought Content: No Suicidal Ideation (denies today), No Homicidal Ideation, No Delusions, No Auditory Halllucinations, No Visual Hallucinations, No Thought Broadcasting, No Ideas of Reference, No Obsessions, Compulsions Sensorium: Clear Cognition: Alert & Oriented-Person, Alert & Oriented-Place, Alert & Oriented- Time, Tjgkd-Qhvihyng-Kiqzqmyko (partially) Memory: Immediate, Recent, Remote Intelligence: Below Average (borderline intelectual functioning verses mild intelectual impairment. ) Insight Judgment: Poor (limited by intelectual ability) Lab Vital Signs Date Time Temp Pulse Resp B/P (MAP) Pulse Ox O2 Delivery O2 Flow Rate FiO2 08/12/17 11:00 99.0 75 16 116/77 (90) 93 Room Air 08/10/17 06:13 1.0 Allergies Coded Allergies No Known Allergies (Verified Allergy, Mild, 08/07/17) [facility] Assessment and Plan Ryxp-mk-Lsao Encounter Date: Aug 13, 2017 Ydfq-su-Ylwn Encounter Time: 09:50 [facility] Plan: Necessary Precautions, Individual/Group Therapy, Admin/Titrate Meds, Educate Patient Tobacco Medications: Not Appropriate Condition Problems: (1) Schizoaffective disorder Status: Chronic (2) Hypothyroidism Status: Chronic (3) Cannabis use disorder, severe, in controlled environment Status: Chronic (4) Alcohol-induced mood disorder with depressive symptoms Optional Permanent Comment: significant dysphoria follows alcohol intoxication in this patient. Last Edited By: Дмитрий De Jesus on Aug 09, 2017 10 :47 Status: Acute (5) Alcohol withdrawal Status: Resolved Condition Continue current medication and treatment Seeking appropriate discharge disposition Encourage out of bed daytime hours Problem Qualifiers (1) Schizoaffective disorder: Schizoaffective disorder type: bipolar Qualified Codes: F25.0 - Schizoaffective disorder, bipolar type RINA TELLO NP Aug 13, 2017 10:56
[2017-08-13 13:25] VITALS: BP 122/74
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
[2017-08-13] MEDS: MIRTAZAPINE 15 MG TAB PO SCH (20:14)
[2017-08-13] MEDS: DIVALPROEX SOD ER 500 MG TABSR PO SCH (20:15)
[2017-08-14] MEDS: LEVOTHYROXINE SOD 0.1 MG TAB PO SCH (06:00)
[2017-08-14 06:33] VITALS: BP 109/71
[2017-08-14] MEDS: MULTIVITAMINS PO SCH (08:15)
--- NOTE | 2017-08-14 09:00 | BHS Progress Note ---
[facility] - Subjective Progress Notes Subjective Patient interacting well with treatment team today. Patient stating he would like to be back in [facility] in [place] and notably signing a release of records to such today. Appetite and sleep good, and no other concerns. Will continue treatment. No medication changes today. Suicidal Ideation: None Homicidal Ideation: None [facility] - Objective Physical Exam Vital Signs Vital Signs Date Time Temp Pulse Resp B/P (MAP) Pulse Ox O2 Delivery O2 Flow Rate FiO2 08/14/17 06:33 97.8 48 15 109/71 (84) 91 Room Air Muscle Strength and Tone: WNL Gait and Station: Steady [facility] Medications Reviewed: Side Effects, Benefits of Medication, Risks Allergies Reviewed: Yes Mental Status Exam General Appearance: Casual, No Good Eye Contact, No Cooperative, No Polite, No Good Interaction, No Tearful, No Psychomotor Agitation, No Psychomotor Retardation, No Bizarre Mannerisms, No Tics, Other (poor eye contact; multiple tatoos, piercings) Speech: Clear, Normal Volume, Normal Tone, Delayed Mood: Dysthmic/Depressed Affect: Calm, Sad, Neutral, No Anxious, No Agitated Thought Process: Goal Directed, No Loose Associations, No Flight of Ideas Thought Content: No Suicidal Ideation (denies today), No Homicidal Ideation, No Delusions, No Auditory Halllucinations, No Visual Hallucinations, No Thought Broadcasting, No Ideas of Reference, No Obsessions, Compulsions Sensorium: Clear Cognition: Alert & Oriented-Person, Alert & Oriented-Place, Alert & Oriented- Time, Fiwzd-Rjryvsvq-Tvebrbxrp (partially) Memory: Immediate, Recent, Remote Intelligence: Below Average (borderline intelectual functioning verses mild intelectual impairment. ) Insight Judgment: Poor (limited by intelectual ability) [facility] Assessment and Plan Honf-cn-Zgtd Encounter Date: Aug 14, 2017 Rxdu-vg-[id number] Encounter Time: 08:30 [facility] Plan: Necessary Precautions, Individual/Group Therapy, Admin/Titrate Meds, Educate Patient Tobacco Medications: Not Appropriate Condition Problems: (1) Alcohol-induced mood disorder with depressive symptoms Optional Permanent Comment: significant dysphoria follows alcohol intoxication in this patient. Last Edited By: Lebron Menendez on Aug 09, 2017 10 :47 Status: Acute (2) Schizoaffective disorder Status: Chronic (3) Alcohol dependence Status: Chronic (4) Hypothyroidism Status: Chronic Assessment & Plan: inability to reliably take medication for this condition on an outpatient basis, leading to dysphoria. (5) Cannabis use disorder, severe, in controlled environment Status: Chronic Condition 1. continue treatment. 2. no medication changes. 3. schedule hearing Problem Qualifiers (1) Schizoaffective disorder: Schizoaffective disorder type: bipolar Qualified Codes: F25.0 - Schizoaffective disorder, bipolar type LEBRON MENENDEZ MD Aug 14, 2017 09:00
[2017-08-14] MEDS: DIVALPROEX SOD ER 500 MG TABSR PO SCH (20:31)
[2017-08-14] MEDS: MIRTAZAPINE 15 MG TAB PO SCH (20:31)
[2017-08-15] MEDS: LEVOTHYROXINE SOD 0.1 MG TAB PO SCH (06:00)
[2017-08-15 06:36] VITALS: BP 106/66
[2017-08-15] MEDS: MULTIVITAMINS PO SCH (08:11)
--- NOTE | 2017-08-15 12:27 | BHS Progress Note ---
[facility] - Subjective Progress Notes Subjective Patient remains cooperative on the unit, stating, "come on dude, let me go home. " Appetite and sleep remain good, patient denies any concerns. Smiling and cooperative, discussion took place regarding potential move back to [facility] in [place]. Patient was excepting of this discussion and seemed to be reflecting on his time there to the best of his ability. 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 Suicidal Ideation: None Homicidal Ideation: None [facility] - Objective Physical Exam Vital Signs Vital Signs Date Time Temp Pulse Resp B/P (MAP) Pulse Ox O2 Delivery O2 Flow Rate FiO2 08/15/17 06:36 97.9 45 15 106/66 (79) 94 Room Air Muscle Strength and Tone: WNL Gait and Station: Steady [facility] Medications Reviewed: Side Effects, Benefits of Medication, Risks Allergies Reviewed: Yes Mental Status Exam General Appearance: Casual, No Good Eye Contact, No Cooperative, No Polite, No Good Interaction, No Tearful, No Psychomotor Agitation, No Psychomotor Retardation, No Bizarre Mannerisms, No Tics, Other (poor eye contact; multiple tatoos, piercings) Speech: Clear, Normal Volume, Normal Tone, Delayed Mood: Dysthmic/Depressed Affect: Calm, Sad, Neutral, No Anxious, No Agitated Thought Process: Goal Directed, No Loose Associations, No Flight of Ideas Thought Content: No Suicidal Ideation (denies today), No Homicidal Ideation, No Delusions, No Auditory Halllucinations, No Visual Hallucinations, No Thought Broadcasting, No Ideas of Reference, No Obsessions, Compulsions Sensorium: Clear Cognition: Alert & Oriented-Person, Alert & Oriented-Place, Alert & Oriented- Time, Sovxw-Lmgryvig-Goholvnyc (partially) Memory: Immediate, Recent, Remote Intelligence: Below Average (borderline intelectual functioning verses mild intelectual impairment. ) Insight Judgment: Poor (limited by intelectual ability) [facility] Assessment and Plan Wqya-qy-Pucq Encounter Date: Aug 15, 2017 Bfcg-hf-Zncw Encounter Time: 10:30 [facility] Plan: Necessary Precautions, Individual/Group Therapy, Admin/Titrate Meds, Educate Patient Tobacco Medications: Not Appropriate Condition Problems: (1) Alcohol-induced mood disorder with depressive symptoms Optional Permanent Comment: significant dysphoria follows alcohol intoxication in this patient. Last Edited By: Lebron Menendez on Aug 09, 2017 10 :47 Status: Acute (2) Schizoaffective disorder Status: Chronic (3) Alcohol dependence Status: Chronic (4) Hypothyroidism Status: Chronic Assessment & Plan: inability to reliably take medication for this condition on an outpatient basis, leading to dysphoria. (5) Cannabis use disorder, severe, in controlled environment Status: Chronic Condition 1. continue treatment. 2. no medication chhanges. 3. set hearing date. Problem Qualifiers (1) Schizoaffective disorder: Schizoaffective disorder type: bipolar Qualified Codes: F25.0 - Schizoaffective disorder, bipolar type LEBRON MENENDEZ MD Aug 15, 2017 12:27
[2017-08-15] MEDS: IBUPROFEN 600 MG TAB PO PRN (12:35)
[2017-08-15] MEDS: DIVALPROEX SOD ER 500 MG TABSR PO SCH (20:57)
[2017-08-15] MEDS: MIRTAZAPINE 15 MG TAB PO SCH (20:57)
[2017-08-16] MEDS: LEVOTHYROXINE SOD 0.1 MG TAB PO SCH (05:53)
[2017-08-16 06:20] VITALS: BP 110/77
[2017-08-16] MEDS: MULTIVITAMINS PO SCH (08:35)
--- NOTE | 2017-08-16 10:27 | BHS Progress Note ---
[facility] - Subjective Progress Notes Subjective Patient interacting well this AM, smiling at this provider, denies any concerns today and denies any symptoms of psychiatric concern. Patient reports good mood, and is aware and understands that his hearing will be Monday in the AM. Patient at this point states he does not want to go to [place], which in the past has been something that the patient had indicated he desired. This would likely reflect upon the patient's long standing ability to make decisions and more importantly follow through on them. Appetite and sleep going well. Suicidal Ideation: None Homicidal Ideation: None [facility] - Objective Physical Exam Vital Signs Vital Signs Date Time Temp Pulse Resp B/P (MAP) Pulse Ox O2 Delivery O2 Flow Rate FiO2 08/16/17 06:20 97.8 53 15 110/77 (88) 93 Room Air Muscle Strength and Tone: WNL Gait and Station: Steady [facility] Medications Reviewed: Side Effects, Benefits of Medication, Risks Allergies Reviewed: Yes Mental Status Exam General Appearance: Casual, No Good Eye Contact, Cooperative, Polite, Good Interaction, No Tearful, No Psychomotor Agitation, No Psychomotor Retardation, No Bizarre Mannerisms, No Tics, Other (poor eye contact; multiple tatoos, piercings) Speech: Clear, Normal Volume, Normal Tone, Delayed Mood: Dysthmic/Depressed (improved, frustrated at times) Affect: Calm, No Sad, Neutral, No Tearful, No Anxious, No Agitated Thought Process: Goal Directed (I want to go home), No Loose Associations, No Flight of Ideas Thought Content: No Suicidal Ideation (denies today, lengthy pattern of return to substance use folllowed by return of suicdal thoughts. ), No Homicidal Ideation, No Delusions, No Auditory Halllucinations, No Visual Hallucinations, No Thought Broadcasting, No Ideas of Reference, No Obsessions, Compulsions Sensorium: Clear Cognition: Alert & Oriented-Person, Alert & Oriented-Place, Alert & Oriented- Time, Icipi-Vrfhlfqs-Xogtnadyg (partially) Memory: Immediate, Recent, Remote Intelligence: Below Average (borderline intelectual functioning verses mild intelectual impairment. ) Insight Judgment: Poor (limited by intelectual ability) [facility] Assessment and Plan Bsxw-vz-Btgb Encounter Date: Aug 16, 2017 Ujdw-lt-Wixe Encounter Time: 08:40 [facility] Plan: Necessary Precautions, Individual/Group Therapy, Admin/Titrate Meds, Educate Patient Tobacco Medications: Not Appropriate Condition Problems: (1) Alcohol-induced mood disorder with depressive symptoms Optional Permanent Comment: significant dysphoria follows alcohol intoxication in this patient. Last Edited By: Lebron Menendez on Aug 09, 2017 10 :47 Status: Acute (2) Schizoaffective disorder Status: Chronic (3) Alcohol dependence Status: Chronic (4) Hypothyroidism Status: Chronic Assessment & Plan: inability to reliably take medication for this condition on an outpatient basis, leading to dysphoria. (5) Cannabis use disorder, severe, in controlled environment Status: Chronic Condition 1. continue treatment. 2. hearing monday. 3. no medication changes. Problem Qualifiers (1) Schizoaffective disorder: Schizoaffective disorder type: bipolar Qualified Codes: F25.0 - Schizoaffective disorder, bipolar type LEBRON MENENDEZ MD Aug 16, 2017 10:27
[2017-08-16] MEDS: MIRTAZAPINE 15 MG TAB PO SCH (21:14)
[2017-08-16] MEDS: DIVALPROEX SOD ER 500 MG TABSR PO SCH (21:14)
[2017-08-16 22:08] VITALS: BP 130/86
[2017-08-17 04:38] VITALS: BP 118/67
[2017-08-17] MEDS: LEVOTHYROXINE SOD 0.1 MG TAB PO SCH (05:59)
[2017-08-17] MEDS: MULTIVITAMINS PO SCH (08:23)
--- NOTE | 2017-08-17 13:27 | BHS Progress Note ---
[facility] - Subjective Progress Notes Subjective Patient seen in room this AM, smiling, stating "there is no way I am going to the [facility], Leave me the fuck alone". Patient using harsh language but overall interacting in a cooperative manner. Patient denies any other psychiatric concerns today, appetite and sleep good. Mood described as frustrated. Suicidal Ideation: None Homicidal Ideation: None [facility] - Objective Physical Exam Vital Signs Vital Signs Date Time Temp Pulse Resp B/P (MAP) Pulse Ox O2 Delivery O2 Flow Rate FiO2 08/17/17 04:38 97.4 50 15 118/67 (84) 94 Room Air Muscle Strength and Tone: WNL Gait and Station: Steady [facility] Medications Reviewed: Side Effects, Benefits of Medication, Risks Allergies Reviewed: Yes Mental Status Exam General Appearance: Casual, Well Groomed, No Good Eye Contact, Cooperative, Polite, Good Interaction, No Tearful, No Psychomotor Agitation, No Psychomotor Retardation, No Bizarre Mannerisms, No Tics, Other (poor eye contact; multiple tatoos, piercings) Speech: Clear, Normal Volume, Normal Tone, Delayed Mood: Dysthmic/Depressed (improved, frustrated at times) Affect: Calm, No Sad, Neutral, No Tearful, No Anxious, No Agitated Thought Process: Goal Directed (I want to go home), No Loose Associations, No Flight of Ideas Thought Content: No Suicidal Ideation (denies today, lengthy pattern of return to substance use folllowed by return of suicdal thoughts. ), No Homicidal Ideation, No Delusions, No Auditory Halllucinations, No Visual Hallucinations, No Thought Broadcasting, No Ideas of Reference, No Obsessions, Compulsions Sensorium: Clear Cognition: Alert & Oriented-Person, Alert & Oriented-Place, Alert & Oriented- Time, Pxeoy-Ypxwekig-Mihdiadto (partially) Memory: Immediate, Recent, Remote Intelligence: Below Average (borderline intelectual functioning verses mild intelectual impairment. ) Insight Judgment: Poor (limited by intelectual ability) [facility] Assessment and Plan Fvtp-et-Vhre Encounter Date: Aug 17, 2017 Mjzu-lu-Fztz Encounter Time: 13:00 [facility] Plan: Necessary Precautions, Individual/Group Therapy, Admin/Titrate Meds, Educate Patient Tobacco Medications: Not Appropriate Condition Problems: (1) Alcohol-induced mood disorder with depressive symptoms Optional Permanent Comment: significant dysphoria follows alcohol intoxication in this patient. Last Edited By: Lebron Menendez on Aug 09, 2017 10 :47 Status: Acute (2) Schizoaffective disorder Status: Chronic (3) Alcohol dependence Status: Chronic (4) Hypothyroidism Status: Chronic Assessment & Plan: inability to reliably take medication for this condition on an outpatient basis, leading to dysphoria. (5) Cannabis use disorder, severe, in controlled environment Status: Chronic Condition 1. continue treatment. 2.hearing tomorrow. Problem Qualifiers (1) Schizoaffective disorder: Schizoaffective disorder type: bipolar Qualified Codes: F25.0 - Schizoaffective disorder, bipolar type LEBRON MENENDEZ MD Aug 17, 2017 13:27
[2017-08-17] MEDS: DIVALPROEX SOD ER 500 MG TABSR PO SCH (19:50)
[2017-08-17] MEDS: MIRTAZAPINE 15 MG TAB PO SCH (19:50)
[2017-08-18] MEDS: LEVOTHYROXINE SOD 0.1 MG TAB PO SCH (06:12)
[2017-08-18 06:24] VITALS: BP 94/62
[2017-08-18] MEDS: NICOTINE INH SYSTEM 10 MG/INH INH PRN ×4 (09:02→19:27)
[2017-08-18] MEDS: NICOTINE CARTRIDGE 1 EA PO PRN (09:02)
[2017-08-18] MEDS: MULTIVITAMINS PO SCH (09:02)
--- NOTE | 2017-08-18 12:11 | BHS Progress Note ---
[facility] - Subjective Progress Notes Subjective Patient having hearing this AM, and is now committed to [facility], and is tolerant of this decision. Will continue to search for placement options that patient could be admitted directly to as well. Will have psychologist Dr. Casillas evaluate patient with IQ testing, no medication changes, will continue to evaluate. Patient has no complaints other than mild frustration related to hearing outcome. Suicidal Ideation: None Homicidal Ideation: None [facility] - Objective Physical Exam Vital Signs Vital Signs Date Time Temp Pulse Resp B/P (MAP) Pulse Ox O2 Delivery O2 Flow Rate FiO2 08/18/17 06:24 97.0 41 94/62 (73) 93 Room Air 08/17/17 04:38 15 Muscle Strength and Tone: WNL Gait and Station: Steady [facility] Medications Reviewed: Side Effects, Benefits of Medication, Risks Allergies Reviewed: Yes Mental Status Exam General Appearance: Casual, Well Groomed, No Good Eye Contact, Cooperative, Polite, Good Interaction, No Tearful, No Psychomotor Agitation, No Psychomotor Retardation, No Bizarre Mannerisms, No Tics, Other (poor eye contact; multiple tatoos, piercings) Speech: Clear, Normal Volume, Normal Tone, Delayed Mood: Dysthmic/Depressed (improved overall, frustrated at times) Affect: Calm, No Sad, Neutral, No Tearful, No Anxious, No Agitated Thought Process: Goal Directed (I want to go home), No Loose Associations, No Flight of Ideas Thought Content: No Suicidal Ideation (denies today, lengthy pattern of return to substance use folllowed by return of suicdal thoughts. ), No Homicidal Ideation, No Delusions, No Auditory Halllucinations, No Visual Hallucinations, No Thought Broadcasting, No Ideas of Reference, No Obsessions, Compulsions Sensorium: Clear Cognition: Alert & Oriented-Person, Alert & Oriented-Place, Alert & Oriented- Time, Nuebk-Mhhypxfv-Nigpqcscu (partially) Memory: Immediate, Recent, Remote Intelligence: Below Average (borderline intelectual functioning verses mild intelectual impairment. ) Insight Judgment: Poor (limited by intelectual ability, and negatively influenced further by alcohol and cannabis use. ) [facility] Assessment and Plan Ijyy-om-Egca Encounter Date: Aug 18, 2017 Alhn-qs-Yjaz Encounter Time: 09:00 [facility] Plan: Necessary Precautions, Individual/Group Therapy, Admin/Titrate Meds, Educate Patient Tobacco Medications: Not Appropriate Condition Problems: (1) Alcohol-induced mood disorder with depressive symptoms Optional Permanent Comment: significant dysphoria follows alcohol intoxication in this patient. Last Edited By: Lebron Menendez on Aug 09, 2017 10 :47 Status: Acute (2) Schizoaffective disorder Status: Chronic (3) Alcohol dependence Status: Chronic (4) Hypothyroidism Status: Chronic (5) Cannabis use disorder, severe, in controlled environment Status: Chronic Condition 1. [facility]. 2. look into alternate placements. 3. testing per psychologist. Problem Qualifiers (1) Schizoaffective disorder: Schizoaffective disorder type: bipolar Qualified Codes: F25.0 - Schizoaffective disorder, bipolar type LEBRON MENENDEZ MD Aug 18, 2017 12:11
[2017-08-18] MEDS: DIVALPROEX SOD ER 500 MG TABSR PO SCH (20:55)
[2017-08-18] MEDS: MIRTAZAPINE 15 MG TAB PO SCH (20:55)
[2017-08-19 03:56] VITALS: BP 96/52
[2017-08-19 06:00] LABS: PLATELET COUNT, AUTOMATED 169 K/uL (150-450)
[2017-08-19] MEDS: LEVOTHYROXINE SOD 0.1 MG TAB PO SCH (07:50)
--- NOTE | 2017-08-19 07:53 | BHS Progress Note ---
[facility] - Subjective Progress Notes Subjective "After the court hearing, I don't care anymore what they do..." Denies this is a suicidal statement. Reports will resign himself to the courts recommendations although he prefers to not go to the [facility]. Suicidal Ideation: None Homicidal Ideation: None [facility] - Objective Physical Exam Vital Signs Vital Signs 08/17/17 08/19/17 04:38 03:56 Temp 97.6 Pulse 53 Resp 15 B/P (MAP) 96/52 (67) Pulse Ox 91 O2 Delivery Room Air Muscle Strength and Tone: WNL Gait and Station: Steady [facility] Medications Reviewed: Side Effects, Benefits of Medication, Risks Allergies Reviewed: Yes Mental Status Exam General Appearance: Casual, Well Groomed, No Good Eye Contact, Cooperative, Polite, Good Interaction, No Tearful, No Psychomotor Agitation, No Psychomotor Retardation, No Bizarre Mannerisms, No Tics, Other (poor eye contact; multiple tatoos, piercings) Speech: Clear, Normal Volume, Normal Tone, Delayed Mood: Dysthmic/Depressed (improved overall, frustrated at times) Affect: Calm, No Sad, Neutral, No Tearful, No Anxious, No Agitated Thought Process: Goal Directed (I want to go home), No Loose Associations, No Flight of Ideas Thought Content: No Suicidal Ideation (denies today, lengthy pattern of return to substance use folllowed by return of suicdal thoughts. ), No Homicidal Ideation, No Delusions, No Auditory Halllucinations, No Visual Hallucinations, No Thought Broadcasting, No Ideas of Reference, No Obsessions, Compulsions Sensorium: Clear Cognition: Alert & Oriented-Person, Alert & Oriented-Place, Alert & Oriented- Time, Hffis-Kgnoaxov-Vyjtlxula (partially) Memory: Immediate, Recent, Remote Intelligence: Below Average (borderline intelectual functioning verses mild intelectual impairment. ) Insight Judgment: Poor (limited by intelectual ability, and negatively influenced further by alcohol and cannabis use. ) Result Diagram: 08/19/17 0550 08/19/17 0550 [facility] Assessment and Plan Dpox-ig-Jhih Encounter Date: Aug 19, 2017 Pcra-mg-Jaqw Encounter Time: 07:45 [facility] Plan: Necessary Precautions, Individual/Group Therapy, Admin/Titrate Meds, Educate Patient Tobacco Medications: Not Appropriate Condition Problems: KOLBY BOWMAN NP Aug 19, 2017 07:53
[2017-08-19] MEDS: MULTIVITAMINS PO SCH (08:25)
[2017-08-19 08:50] VITALS: BP 111/77
[2017-08-19] MEDS: NICOTINE INH SYSTEM 10 MG/INH INH PRN ×2 (09:03→15:59)
[2017-08-19] MEDS: DIVALPROEX SOD ER 500 MG TABSR PO SCH (20:39)
[2017-08-19] MEDS: MIRTAZAPINE 15 MG TAB PO SCH (20:39)
[2017-08-20 04:00] VITALS: BP 92/60
[2017-08-20] MEDS: LEVOTHYROXINE SOD 0.1 MG TAB PO SCH (06:18)
[2017-08-20] MEDS: MULTIVITAMINS PO SCH (07:51)
--- NOTE | 2017-08-20 10:32 | BHS Progress Note ---
[facility] - Subjective Progress Notes Subjective "Just want to go home...I'm fine." Suicidal Ideation: None Homicidal Ideation: None [facility] - Objective Physical Exam Vital Signs Vital Signs 08/19/17 08/20/17 08:50 04:00 Temp 97.8 Pulse 49 Resp 18 B/P (MAP) 92/60 (71) Pulse Ox 92 O2 Delivery Room Air Muscle Strength and Tone: WNL Gait and Station: Steady [facility] Medications Reviewed: Side Effects, Benefits of Medication, Risks Allergies Reviewed: Yes Mental Status Exam General Appearance: Casual, Well Groomed, No Good Eye Contact, Cooperative, Polite, Good Interaction, No Tearful, No Psychomotor Agitation, No Psychomotor Retardation, No Bizarre Mannerisms, No Tics, Other (poor eye contact; multiple tatoos, piercings) Speech: Clear, Normal Volume, Normal Tone, Delayed Mood: Dysthmic/Depressed (improved overall, frustrated at times) Affect: Calm, No Sad, Neutral, No Tearful, No Anxious, No Agitated Thought Process: Goal Directed (I want to go home), No Loose Associations, No Flight of Ideas Thought Content: No Suicidal Ideation (denies today, lengthy pattern of return to substance use folllowed by return of suicdal thoughts. ), No Homicidal Ideation, No Delusions, No Auditory Halllucinations, No Visual Hallucinations, No Thought Broadcasting, No Ideas of Reference, No Obsessions, Compulsions Sensorium: Clear Cognition: Alert & Oriented-Person, Alert & Oriented-Place, Alert & Oriented- Time, Toymb-Epbubyrw-Bserxzcbr (partially) Memory: Immediate, Recent, Remote Intelligence: Below Average (borderline intelectual functioning verses mild intelectual impairment. ) Insight Judgment: Poor (limited by intelectual ability, and negatively influenced further by alcohol and cannabis use. ) Result Diagram: 08/19/17 0550 08/19/[address] [facility] Assessment and Plan Ogkt-vd-Cyge Encounter Date: Aug 20, 2017 Iouf-ff-Yobx Encounter Time: 10:30 [facility] Plan: Necessary Precautions, Individual/Group Therapy, Admin/Titrate Meds, Educate Patient Tobacco Medications: Not Appropriate Condition Problems: KOLBY BOWMAN NP Aug 20, 2017 10:32
[2017-08-20] MEDS: NICOTINE INH SYSTEM 10 MG/INH INH PRN (13:58)
[2017-08-20] MEDS: MIRTAZAPINE 15 MG TAB PO SCH (20:17)
[2017-08-20] MEDS: DIVALPROEX SOD ER 500 MG TABSR PO SCH (20:18)
[2017-08-21 04:53] VITALS: BP 112/77
[2017-08-21] MEDS: LEVOTHYROXINE SOD 0.1 MG TAB PO SCH (05:36)
[2017-08-21] MEDS: MULTIVITAMINS PO SCH (08:05)
--- NOTE | 2017-08-21 09:23 | BHS Progress Note ---
BHS - Subjective Progress Notes Subjective Patient remains calm and cooperative on the unit, stating calmly "that he doesn' t want to be here." Patient smiling, denies any symptoms. Appetite and sleep good, No other concerns today. Suicidal Ideation: None Homicidal Ideation: None S - Objective Physical Exam Vital Signs Hematology Test 08/19/17 05:50 Red Blood Count 4.92 M/uL (4.00-5.60) Mean Corpuscular Volume 90.9 fL (80.0-96.0) Mean Corpuscular Hemoglobin 30.4 pg (26.0-33.0) Mean Corpuscular Hemoglobin Concent 33.4 g/dL (32.0-36.0) Red Cell Distribution Width 14.0 % (11.5-14.5) Mean Platelet Volume 8.3 fL (7.2-11.1) Neutrophils (%) (Auto) 51.6 % (39.4-72.5) Lymphocytes (%) (Auto) 35.1 % (17.6-49.6) Monocytes (%) (Auto) 10.8 % (4.1-12.4) Eosinophils (%) (Auto) 1.7 % (0.4-6.7) Basophils (%) (Auto) 0.8 % (0.3-1.4) Nucleated RBC Relative Count (auto) 0.0 /100WBC Neutrophils # (Auto) 2.6 K/uL (2.0-7.4) Lymphocytes # (Auto) 1.8 K/uL (1.3-3.6) Monocytes # (Auto) 0.6 K/uL (0.3-1.0) Eosinophils # (Auto) 0.1 K/uL (0.0-0.5) Basophils # (Auto) 0.0 K/uL (0.0-0.1) Nucleated RBC Absolute Count (auto) 0.00 K/uL Sodium Level 138 mmol/L (137-145) Potassium Level 3.8 mmol/L (3.5-5.0) Chloride Level 100 mmol/L (98-107) Carbon Dioxide Level 28 mmol/L (22-30) Blood Urea Nitrogen 8 mg/dl (9-21) Creatinine 0.80 mg/dl (0.66-1.25) Glomerular Filtration Rate Calc > 60.0 Random Glucose 85 mg/dl (75-110) Calcium Level 8.6 mg/dl (8.4-10.2) Total Bilirubin 0.2 mg/dl (0.2-1.3) Aspartate Amino Transf (AST/SGOT) 25 U/L (0-35) Alanine Aminotransferase (ALT/SGPT) 25 U/L (0-56) Alkaline Phosphatase 61 U/L (0-126) Total Protein 5.8 gm/dl (6.3-8.2) Albumin 3.0 g/dl (3.5-5.0) Valproic Acid (Depakene) Level 51.0 ug/ml Chemistry Test 08/19/17 05:50 White Blood Count 5.1 k/uL (4.5-11.0) Red Blood Count 4.92 M/uL (4.00-5.60) Hemoglobin 14.9 g/dL (14.0-18.0) Hematocrit 44.7 % (42.0-52.0) Mean Corpuscular Volume 90.9 fL (80.0-96.0) Mean Corpuscular Hemoglobin 30.4 pg (26.0-33.0) Mean Corpuscular Hemoglobin Concent 33.4 g/dL (32.0-36.0) Red Cell Distribution Width 14.0 % (11.5-14.5) Platelet Count 169 K/uL (150-450) Mean Platelet Volume 8.3 fL (7.2-11.1) Neutrophils (%) (Auto) 51.6 % (39.4-72.5) Lymphocytes (%) (Auto) 35.1 % (17.6-49.6) Monocytes (%) (Auto) 10.8 % (4.1-12.4) Eosinophils (%) (Auto) 1.7 % (0.4-6.7) Basophils (%) (Auto) 0.8 % (0.3-1.4) Nucleated RBC Relative Count (auto) 0.0 /100WBC Neutrophils # (Auto) 2.6 K/uL (2.0-7.4) Lymphocytes # (Auto) 1.8 K/uL (1.3-3.6) Monocytes # (Auto) 0.6 K/uL (0.3-1.0) Eosinophils # (Auto) 0.1 K/uL (0.0-0.5) Basophils # (Auto) 0.0 K/uL (0.0-0.1) Nucleated RBC Absolute Count (auto) 0.00 K/uL Glomerular Filtration Rate Calc > 60.0 Calcium Level 8.6 mg/dl (8.4-10.2) Total Bilirubin 0.2 mg/dl (0.2-1.3) Aspartate Amino Transf (AST/SGOT) 25 U/L (0-35) Alanine Aminotransferase (ALT/SGPT) 25 U/L (0-56) Alkaline Phosphatase 61 U/L (0-126) Total Protein 5.8 gm/dl (6.3-8.2) Albumin 3.0 g/dl (3.5-5.0) Valproic Acid (Depakene) Level 51.0 ug/ml Toxicology Test 08/19/17 05:50 Valproic Acid (Depakene) Level 51.0 ug/ml Muscle Strength and Tone: WNL Gait and Station: Steady S Medications Reviewed: Side Effects, Benefits of Medication, Risks Allergies Reviewed: Yes Mental Status Exam General Appearance: Casual, Well Groomed, No Good Eye Contact, Cooperative, Polite, Good Interaction, No Tearful, No Psychomotor Agitation, No Psychomotor Retardation, No Bizarre Mannerisms, No Tics, Other (poor eye contact; multiple tatoos, piercings) Speech: Clear, Normal Volume, Normal Tone, Delayed Mood: Dysthmic/Depressed (improved overall, frustrated at times) Affect: Calm, No Sad, Neutral, No Tearful, No Anxious, No Agitated Thought Process: Goal Directed (I want to go home), No Loose Associations, No Flight of Ideas Thought Content: No Suicidal Ideation (denies today, lengthy pattern of return to substance use folllowed by return of suicdal thoughts. ), No Homicidal Ideation, No Delusions, No Auditory Halllucinations, No Visual Hallucinations, No Thought Broadcasting, No Ideas of Reference, No Obsessions, Compulsions Sensorium: Clear Cognition: Alert & Oriented-Person, Alert & Oriented-Place, Alert & Oriented- Time, Mtjup-Tmovsvsg-Pwyknomwk (partially) Memory: Immediate, Recent, Remote Intelligence: Below Average (borderline intelectual functioning verses mild intelectual impairment. ) Insight Judgment: Poor (limited by intelectual ability, and negatively influenced further by alcohol and cannabis use. ) Result Diagram: 08/19/17 0550 08/19/17 0550 [facility] Assessment and Plan Tiul-er-Mgfx Encounter Date: Aug 21, 2017 Medk-ni-Kijh Encounter Time: 08:40 [facility] Plan: Necessary Precautions, Individual/Group Therapy, Admin/Titrate Meds, Educate Patient Tobacco Medications: Not Appropriate Condition Problems: (1) Alcohol-induced mood disorder with depressive symptoms Optional Permanent Comment: significant dysphoria follows alcohol intoxication in this patient. Last Edited By: Lebron Menendez on Aug 09, 2017 10 :47 Status: Acute (2) Schizoaffective disorder Status: Chronic (3) Alcohol dependence Status: Chronic (4) Hypothyroidism Status: Chronic (5) Cannabis use disorder, severe, in controlled environment Status: Chronic Condition 1. continue treatment. 2. no medication changes. Problem Qualifiers (1) Schizoaffective disorder: Schizoaffective disorder type: bipolar Qualified Codes: F25.0 - Schizoaffective disorder, bipolar type LEBRON MENENDEZ MD Aug 21, 2017 09:23
[2017-08-21] MEDS: NICOTINE INH SYSTEM 10 MG/INH INH PRN ×2 (14:03→16:41)
[2017-08-21] MEDS: MIRTAZAPINE 15 MG TAB PO SCH (21:22)
[2017-08-21] MEDS: DIVALPROEX SOD ER 500 MG TABSR PO SCH (21:22)
[2017-08-22 04:12] VITALS: BP 109/60
[2017-08-22] MEDS: LEVOTHYROXINE SOD 0.1 MG TAB PO SCH (05:56)
[2017-08-22] MEDS: MULTIVITAMINS PO SCH (08:15)
[2017-08-22 10:20] VITALS: BP 112/66
--- NOTE | 2017-08-22 10:39 | BHS Progress Note ---
BHS - Subjective Progress Notes Subjective Patient continues to voice frustration in regards to his mental health commitment, but denies any other psychiatric concerns or symptoms. sleep and appetite good. Will continue to await state hospital transfer. Suicidal Ideation: None Homicidal Ideation: None S - Objective Physical Exam Vital Signs Vital Signs Date Time Temp Pulse Resp B/P (MAP) Pulse Ox O2 Delivery O2 Flow Rate FiO2 08/22/17 04:12 97.7 47 15 109/60 (76) 89 Room Air Hematology Test 08/19/17 05:50 Red Blood Count 4.92 M/uL (4.00-5.60) Mean Corpuscular Volume 90.9 fL (80.0-96.0) Mean Corpuscular Hemoglobin 30.4 pg (26.0-33.0) Mean Corpuscular Hemoglobin Concent 33.4 g/dL (32.0-36.0) Red Cell Distribution Width 14.0 % (11.5-14.5) Mean Platelet Volume 8.3 fL (7.2-11.1) Neutrophils (%) (Auto) 51.6 % (39.4-72.5) Lymphocytes (%) (Auto) 35.1 % (17.6-49.6) Monocytes (%) (Auto) 10.8 % (4.1-12.4) Eosinophils (%) (Auto) 1.7 % (0.4-6.7) Basophils (%) (Auto) 0.8 % (0.3-1.4) Nucleated RBC Relative Count (auto) 0.0 /100WBC Neutrophils # (Auto) 2.6 K/uL (2.0-7.4) Lymphocytes # (Auto) 1.8 K/uL (1.3-3.6) Monocytes # (Auto) 0.6 K/uL (0.3-1.0) Eosinophils # (Auto) 0.1 K/uL (0.0-0.5) Basophils # (Auto) 0.0 K/uL (0.0-0.1) Nucleated RBC Absolute Count (auto) 0.00 K/uL Sodium Level 138 mmol/L (137-145) Potassium Level 3.8 mmol/L (3.5-5.0) Chloride Level 100 mmol/L (98-107) Carbon Dioxide Level 28 mmol/L (22-30) Blood Urea Nitrogen 8 mg/dl (9-21) Creatinine 0.80 mg/dl (0.66-1.25) Glomerular Filtration Rate Calc > 60.0 Random Glucose 85 mg/dl (75-110) Calcium Level 8.6 mg/dl (8.4-10.2) Total Bilirubin 0.2 mg/dl (0.2-1.3) Aspartate Amino Transf (AST/SGOT) 25 U/L (0-35) Alanine Aminotransferase (ALT/SGPT) 25 U/L (0-56) Alkaline Phosphatase 61 U/L (0-126) Total Protein 5.8 gm/dl (6.3-8.2) Albumin 3.0 g/dl (3.5-5.0) Valproic Acid (Depakene) Level 51.0 ug/ml Chemistry Test 08/19/17 05:50 White Blood Count 5.1 k/uL (4.5-11.0) Red Blood Count 4.92 M/uL (4.00-5.60) Hemoglobin 14.9 g/dL (14.0-18.0) Hematocrit 44.7 % (42.0-52.0) Mean Corpuscular Volume 90.9 fL (80.0-96.0) Mean Corpuscular Hemoglobin 30.4 pg (26.0-33.0) Mean Corpuscular Hemoglobin Concent 33.4 g/dL (32.0-36.0) Red Cell Distribution Width 14.0 % (11.5-14.5) Platelet Count 169 K/uL (150-450) Mean Platelet Volume 8.3 fL (7.2-11.1) Neutrophils (%) (Auto) 51.6 % (39.4-72.5) Lymphocytes (%) (Auto) 35.1 % (17.6-49.6) Monocytes (%) (Auto) 10.8 % (4.1-12.4) Eosinophils (%) (Auto) 1.7 % (0.4-6.7) Basophils (%) (Auto) 0.8 % (0.3-1.4) Nucleated RBC Relative Count (auto) 0.0 /100WBC Neutrophils # (Auto) 2.6 K/uL (2.0-7.4) Lymphocytes # (Auto) 1.8 K/uL (1.3-3.6) Monocytes # (Auto) 0.6 K/uL (0.3-1.0) Eosinophils # (Auto) 0.1 K/uL (0.0-0.5) Basophils # (Auto) 0.0 K/uL (0.0-0.1) Nucleated RBC Absolute Count (auto) 0.00 K/uL Glomerular Filtration Rate Calc > 60.0 Calcium Level 8.6 mg/dl (8.4-10.2) Total Bilirubin 0.2 mg/dl (0.2-1.3) Aspartate Amino Transf (AST/SGOT) 25 U/L (0-35) Alanine Aminotransferase (ALT/SGPT) 25 U/L (0-56) Alkaline Phosphatase 61 U/L (0-126) Total Protein 5.8 gm/dl (6.3-8.2) Albumin 3.0 g/dl (3.5-5.0) Valproic Acid (Depakene) Level 51.0 ug/ml Toxicology Test 08/19/17 05:50 Valproic Acid (Depakene) Level 51.0 ug/ml Muscle Strength and Tone: WNL Gait and Station: Steady [facility] Medications Reviewed: Side Effects, Benefits of Medication, Risks Allergies Reviewed: Yes Mental Status Exam General Appearance: Casual, Well Groomed, No Good Eye Contact, Cooperative, Polite, Good Interaction, No Tearful, No Psychomotor Agitation, No Psychomotor Retardation, No Bizarre Mannerisms, No Tics, Other (poor eye contact; multiple tatoos, piercings) Speech: Clear, Normal Volume, Normal Tone, Delayed Mood: Dysthmic/Depressed (improved overall, frustrated at times) Affect: Calm, No Sad, Neutral, No Tearful, No Anxious, No Agitated Thought Process: Goal Directed (I want to go home), No Loose Associations, No Flight of Ideas Thought Content: No Suicidal Ideation (denies today, lengthy pattern of return to substance use folllowed by return of suicdal thoughts. ), No Homicidal Ideation, No Delusions, No Auditory Halllucinations, No Visual Hallucinations, No Thought Broadcasting, No Ideas of Reference, No Obsessions, Compulsions Sensorium: Clear Cognition: Alert & Oriented-Person, Alert & Oriented-Place, Alert & Oriented- Time, Ngbsg-Uqnvmncx-Bskwcumjq (partially) Memory: Immediate, Recent, Remote Intelligence: Below Average (borderline intelectual functioning verses mild intelectual impairment. ) Insight Judgment: Poor (limited by intelectual ability, and negatively influenced further by alcohol and cannabis use. ) Result Diagram: 08/19/17 0550 08/19/17 0550 [facility] Assessment and Plan Xuyb-ca-Yywl Encounter Date: Aug 22, 2017 Vvqb-[id number] Encounter Time: 11:00 [facility] Plan: Necessary Precautions, Individual/Group Therapy, Admin/Titrate Meds, Educate Patient Tobacco Medications: Not Appropriate Condition Problems: (1) Alcohol-induced mood disorder with depressive symptoms Optional Permanent Comment: significant dysphoria follows alcohol intoxication in this patient. Last Edited By: Lebron Menendez on Aug 09, 2017 10 :47 Status: Acute (2) Schizoaffective disorder Status: Chronic (3) Alcohol dependence Status: Chronic (4) Hypothyroidism Status: Chronic (5) Cannabis use disorder, severe, in controlled environment Status: Chronic Condition 1. continue treatment. 2. no medication changes. Problem Qualifiers (1) Schizoaffective disorder: Schizoaffective disorder type: bipolar Qualified Codes: F25.0 - Schizoaffective disorder, bipolar type LEBRON MENENDEZ MD Aug 22, 2017 10:39
[2017-08-22] MEDS: NICOTINE INH SYSTEM 10 MG/INH INH PRN (15:02)
[2017-08-22] MEDS: DIVALPROEX SOD ER 500 MG TABSR PO SCH (20:53)
[2017-08-22] MEDS: MIRTAZAPINE 15 MG TAB PO SCH (20:53)
[2017-08-23 03:29] VITALS: BP 113/74
[2017-08-23] MEDS: LEVOTHYROXINE SOD 0.1 MG TAB PO SCH (05:29)
[2017-08-23] MEDS: MULTIVITAMINS PO SCH (08:11)
--- NOTE | 2017-08-23 09:11 | BHS Progress Note ---
S - Subjective Progress Notes Subjective Patient smiling this AM, interacting well with this provider today, and treatment team staff. Patient denies any type of psychiatric concerns including any psychotic type symptoms. Patient notably cooperative and was able to participate in a walk around the hospital with staff, and was very appropriate. No medication changes, will have psychological testing regarding intellectual ability here on the unit. Will await state hospital transfer. Suicidal Ideation: None Homicidal Ideation: None [facility] - Objective Physical Exam Vital Signs Vital Signs Date Time Temp Pulse Resp B/P (MAP) Pulse Ox O2 Delivery O2 Flow Rate FiO2 08/23/17 03:29 98.1 59 15 113/74 (87) 91 Room Air Hematology Test 08/19/17 05:50 Red Blood Count 4.92 M/uL (4.00-5.60) Mean Corpuscular Volume 90.9 fL (80.0-96.0) Mean Corpuscular Hemoglobin 30.4 pg (26.0-33.0) Mean Corpuscular Hemoglobin Concent 33.4 g/dL (32.0-36.0) Red Cell Distribution Width 14.0 % (11.5-14.5) Mean Platelet Volume 8.3 fL (7.2-11.1) Neutrophils (%) (Auto) 51.6 % (39.4-72.5) Lymphocytes (%) (Auto) 35.1 % (17.6-49.6) Monocytes (%) (Auto) 10.8 % (4.1-12.4) Eosinophils (%) (Auto) 1.7 % (0.4-6.7) Basophils (%) (Auto) 0.8 % (0.3-1.4) Nucleated RBC Relative Count (auto) 0.0 /100WBC Neutrophils # (Auto) 2.6 K/uL (2.0-7.4) Lymphocytes # (Auto) 1.8 K/uL (1.3-3.6) Monocytes # (Auto) 0.6 K/uL (0.3-1.0) Eosinophils # (Auto) 0.1 K/uL (0.0-0.5) Basophils # (Auto) 0.0 K/uL (0.0-0.1) Nucleated RBC Absolute Count (auto) 0.00 K/uL Sodium Level 138 mmol/L (137-145) Potassium Level 3.8 mmol/L (3.5-5.0) Chloride Level 100 mmol/L (98-107) Carbon Dioxide Level 28 mmol/L (22-30) Blood Urea Nitrogen 8 mg/dl (9-21) Creatinine 0.80 mg/dl (0.66-1.25) Glomerular Filtration Rate Calc > 60.0 Random Glucose 85 mg/dl (75-110) Calcium Level 8.6 mg/dl (8.4-10.2) Total Bilirubin 0.2 mg/dl (0.2-1.3) Aspartate Amino Transf (AST/SGOT) 25 U/L (0-35) Alanine Aminotransferase (ALT/SGPT) 25 U/L (0-56) Alkaline Phosphatase 61 U/L (0-126) Total Protein 5.8 gm/dl (6.3-8.2) Albumin 3.0 g/dl (3.5-5.0) Valproic Acid (Depakene) Level 51.0 ug/ml Chemistry Test 08/19/17 05:50 White Blood Count 5.1 k/uL (4.5-11.0) Red Blood Count 4.92 M/uL (4.00-5.60) Hemoglobin 14.9 g/dL (14.0-18.0) Hematocrit 44.7 % (42.0-52.0) Mean Corpuscular Volume 90.9 fL (80.0-96.0) Mean Corpuscular Hemoglobin 30.4 pg (26.0-33.0) Mean Corpuscular Hemoglobin Concent 33.4 g/dL (32.0-36.0) Red Cell Distribution Width 14.0 % (11.5-14.5) Platelet Count 169 K/uL (150-450) Mean Platelet Volume 8.3 fL (7.2-11.1) Neutrophils (%) (Auto) 51.6 % (39.4-72.5) Lymphocytes (%) (Auto) 35.1 % (17.6-49.6) Monocytes (%) (Auto) 10.8 % (4.1-12.4) Eosinophils (%) (Auto) 1.7 % (0.4-6.7) Basophils (%) (Auto) 0.8 % (0.3-1.4) Nucleated RBC Relative Count (auto) 0.0 /100WBC Neutrophils # (Auto) 2.6 K/uL (2.0-7.4) Lymphocytes # (Auto) 1.8 K/uL (1.3-3.6) Monocytes # (Auto) 0.6 K/uL (0.3-1.0) Eosinophils # (Auto) 0.1 K/uL (0.0-0.5) Basophils # (Auto) 0.0 K/uL (0.0-0.1) Nucleated RBC Absolute Count (auto) 0.00 K/uL Glomerular Filtration Rate Calc > 60.0 Calcium Level 8.6 mg/dl (8.4-10.2) Total Bilirubin 0.2 mg/dl (0.2-1.3) Aspartate Amino Transf (AST/SGOT) 25 U/L (0-35) Alanine Aminotransferase (ALT/SGPT) 25 U/L (0-56) Alkaline Phosphatase 61 U/L (0-126) Total Protein 5.8 gm/dl (6.3-8.2) Albumin 3.0 g/dl (3.5-5.0) Valproic Acid (Depakene) Level 51.0 ug/ml Toxicology Test 08/19/17 05:50 Valproic Acid (Depakene) Level 51.0 ug/ml Muscle Strength and Tone: WNL Gait and Station: Steady [facility] Medications Reviewed: Side Effects, Benefits of Medication, Risks Allergies Reviewed: Yes Mental Status Exam General Appearance: Casual, Well Groomed, No Good Eye Contact (appears baseline ), Cooperative, Polite, Good Interaction, No Tearful, No Psychomotor Agitation, No Psychomotor Retardation, No Bizarre Mannerisms, No Tics, Other (poor eye contact; multiple tatoos, piercings) Speech: Clear, Normal Volume, Normal Tone, Delayed Mood: Dysthmic/Depressed (improved overall, frustrated at times) Affect: Calm, No Sad, Neutral, No Tearful, No Anxious, No Agitated Thought Process: Organized, Goal Directed (I want to go home), No Loose Associations, No Flight of Ideas Thought Content: No Suicidal Ideation (denies today, lengthy pattern of return to substance use folllowed by return of suicdal thoughts. ), No Homicidal Ideation, No Delusions, No Auditory Halllucinations, No Visual Hallucinations, No Thought Broadcasting, No Ideas of Reference, No Obsessions, Compulsions Sensorium: Clear Cognition: Alert & Oriented-Person, Alert & Oriented-Place, Alert & Oriented- Time, Miqwu-Nbzsxvrk-Qqcqtwslw (partially) Memory: Immediate, Recent, Remote Intelligence: Below Average (borderline intelectual functioning verses mild intelectual impairment. ) Insight Judgment: Poor (limited by intelectual ability, and negatively influenced further by alcohol and cannabis use. ) Result Diagram: 08/19/17 0550 08/19/17 0550 [facility] Assessment and Plan Ioqs-gb-Zqro Encounter Date: Aug 23, 2017 Iltg-jt-Bcyt Encounter Time: 09:00 [facility] Plan: Necessary Precautions, Individual/Group Therapy, Admin/Titrate Meds, Educate Patient Tobacco Medications: Not Appropriate Condition Problems: (1) Alcohol-induced mood disorder with depressive symptoms Optional Permanent Comment: significant dysphoria follows alcohol intoxication in this patient. Last Edited By: Lebron Menendez on Aug 09, 2017 10 :47 Status: Acute (2) Schizoaffective disorder Status: Chronic (3) Alcohol dependence Status: Chronic (4) Hypothyroidism Status: Chronic (5) Cannabis use disorder, severe, in controlled environment Status: Chronic Condition 1. no medication changes. 2. await [facility]. 3. psychological testing. Problem Qualifiers (1) Schizoaffective disorder: Schizoaffective disorder type: bipolar Qualified Codes: F25.0 - Schizoaffective disorder, bipolar type LEBRON MENENDEZ MD Aug 23, 2017 09:11
[2017-08-23] MEDS: NICOTINE INH SYSTEM 10 MG/INH INH PRN (16:09)
[2017-08-23] MEDS: DIVALPROEX SOD ER 500 MG TABSR PO SCH (21:10)
[2017-08-23] MEDS: MIRTAZAPINE 15 MG TAB PO SCH (21:10)
[2017-08-24 03:24] VITALS: BP 94/48
[2017-08-24] MEDS: LEVOTHYROXINE SOD 0.1 MG TAB PO SCH (05:52)
[2017-08-24] MEDS: MULTIVITAMINS PO SCH (08:15)
--- NOTE | 2017-08-24 09:52 | BHS Progress Note ---
BHS - Subjective Progress Notes Subjective Patient remains pleasant and cooperative on the unit, Mood remains frustrated at times, but patient demonstrates a fondness of socialization to some degree while on an inpatient unit. No complaints today will continue treatment. await state hospital transfer. Suicidal Ideation: None Homicidal Ideation: None S - Objective Physical Exam Vital Signs Vital Signs Date Time Temp Pulse Resp B/P (MAP) Pulse Ox O2 Delivery O2 Flow Rate FiO2 08/24/17 03:24 97.5 47 15 94/48 (63) 91 Room Air Hematology Test 08/19/17 05:50 Red Blood Count 4.92 M/uL (4.00-5.60) Mean Corpuscular Volume 90.9 fL (80.0-96.0) Mean Corpuscular Hemoglobin 30.4 pg (26.0-33.0) Mean Corpuscular Hemoglobin Concent 33.4 g/dL (32.0-36.0) Red Cell Distribution Width 14.0 % (11.5-14.5) Mean Platelet Volume 8.3 fL (7.2-11.1) Neutrophils (%) (Auto) 51.6 % (39.4-72.5) Lymphocytes (%) (Auto) 35.1 % (17.6-49.6) Monocytes (%) (Auto) 10.8 % (4.1-12.4) Eosinophils (%) (Auto) 1.7 % (0.4-6.7) Basophils (%) (Auto) 0.8 % (0.3-1.4) Nucleated RBC Relative Count (auto) 0.0 /100WBC Neutrophils # (Auto) 2.6 K/uL (2.0-7.4) Lymphocytes # (Auto) 1.8 K/uL (1.3-3.6) Monocytes # (Auto) 0.6 K/uL (0.3-1.0) Eosinophils # (Auto) 0.1 K/uL (0.0-0.5) Basophils # (Auto) 0.0 K/uL (0.0-0.1) Nucleated RBC Absolute Count (auto) 0.00 K/uL Sodium Level 138 mmol/L (137-145) Potassium Level 3.8 mmol/L (3.5-5.0) Chloride Level 100 mmol/L (98-107) Carbon Dioxide Level 28 mmol/L (22-30) Blood Urea Nitrogen 8 mg/dl (9-21) Creatinine 0.80 mg/dl (0.66-1.25) Glomerular Filtration Rate Calc > 60.0 Random Glucose 85 mg/dl (75-110) Calcium Level 8.6 mg/dl (8.4-10.2) Total Bilirubin 0.2 mg/dl (0.2-1.3) Aspartate Amino Transf (AST/SGOT) 25 U/L (0-35) Alanine Aminotransferase (ALT/SGPT) 25 U/L (0-56) Alkaline Phosphatase 61 U/L (0-126) Total Protein 5.8 gm/dl (6.3-8.2) Albumin 3.0 g/dl (3.5-5.0) Valproic Acid (Depakene) Level 51.0 ug/ml Chemistry Test 08/19/17 05:50 White Blood Count 5.1 k/uL (4.5-11.0) Red Blood Count 4.92 M/uL (4.00-5.60) Hemoglobin 14.9 g/dL (14.0-18.0) Hematocrit 44.7 % (42.0-52.0) Mean Corpuscular Volume 90.9 fL (80.0-96.0) Mean Corpuscular Hemoglobin 30.4 pg (26.0-33.0) Mean Corpuscular Hemoglobin Concent 33.4 g/dL (32.0-36.0) Red Cell Distribution Width 14.0 % (11.5-14.5) Platelet Count 169 K/uL (150-450) Mean Platelet Volume 8.3 fL (7.2-11.1) Neutrophils (%) (Auto) 51.6 % (39.4-72.5) Lymphocytes (%) (Auto) 35.1 % (17.6-49.6) Monocytes (%) (Auto) 10.8 % (4.1-12.4) Eosinophils (%) (Auto) 1.7 % (0.4-6.7) Basophils (%) (Auto) 0.8 % (0.3-1.4) Nucleated RBC Relative Count (auto) 0.0 /100WBC Neutrophils # (Auto) 2.6 K/uL (2.0-7.4) Lymphocytes # (Auto) 1.8 K/uL (1.3-3.6) Monocytes # (Auto) 0.6 K/uL (0.3-1.0) Eosinophils # (Auto) 0.1 K/uL (0.0-0.5) Basophils # (Auto) 0.0 K/uL (0.0-0.1) Nucleated RBC Absolute Count (auto) 0.00 K/uL Glomerular Filtration Rate Calc > 60.0 Calcium Level 8.6 mg/dl (8.4-10.2) Total Bilirubin 0.2 mg/dl (0.2-1.3) Aspartate Amino Transf (AST/SGOT) 25 U/L (0-35) Alanine Aminotransferase (ALT/SGPT) 25 U/L (0-56) Alkaline Phosphatase 61 U/L (0-126) Total Protein 5.8 gm/dl (6.3-8.2) Albumin 3.0 g/dl (3.5-5.0) Valproic Acid (Depakene) Level 51.0 ug/ml Toxicology Test 08/19/17 05:50 Valproic Acid (Depakene) Level 51.0 ug/ml Muscle Strength and Tone: WNL Gait and Station: Steady [facility] Medications Reviewed: Side Effects, Benefits of Medication, Risks Allergies Reviewed: Yes Mental Status Exam General Appearance: Casual, Well Groomed, No Good Eye Contact (appears baseline ), Cooperative, Polite, Good Interaction, No Tearful, No Psychomotor Agitation, No Psychomotor Retardation, No Bizarre Mannerisms, No Tics, Other (poor eye contact; multiple tatoos, piercings) Speech: Clear, Normal Volume, Normal Tone, Delayed Mood: Dysthmic/Depressed (improved overall, frustrated at times) Affect: Calm, No Sad, Neutral, No Tearful, No Anxious, No Agitated Thought Process: Organized, Goal Directed (I want to go home), No Loose Associations, No Flight of Ideas Thought Content: No Suicidal Ideation (denies today, lengthy pattern of return to substance use folllowed by return of suicdal thoughts. ), No Homicidal Ideation, No Delusions, No Auditory Halllucinations, No Visual Hallucinations, No Thought Broadcasting, No Ideas of Reference, No Obsessions, Compulsions Sensorium: Clear Cognition: Alert & Oriented-Person, Alert & Oriented-Place, Alert & Oriented- Time, Ihwom-Frakgkrp-Nsrutvsue (partially) Memory: Immediate, Recent, Remote Intelligence: Below Average (borderline intelectual functioning verses mild intelectual impairment. ) Insight Judgment: Poor (limited by intelectual ability, and negatively influenced further by alcohol and cannabis use. ) [facility] Assessment and Plan Hqky-cj-[id number] Encounter Date: Aug 24, 2017 Hmao-fr-Ampi Encounter Time: 10:00 [facility] Plan: Necessary Precautions, Individual/Group Therapy, Admin/Titrate Meds, Educate Patient Tobacco Medications: Not Appropriate Condition Problems: (1) Alcohol-induced mood disorder with depressive symptoms Optional Permanent Comment: significant dysphoria follows alcohol intoxication in this patient. Last Edited By: Lebron Menendez on Aug 09, 2017 10 :47 Status: Acute (2) Schizoaffective disorder Status: Chronic (3) Alcohol dependence Status: Chronic (4) Hypothyroidism Status: Chronic (5) Cannabis use disorder, severe, in controlled environment Status: Chronic Condition 1. continue treatment. 2. await [facility] Problem Qualifiers (1) Schizoaffective disorder: Schizoaffective disorder type: bipolar Qualified Codes: F25.0 - Schizoaffective disorder, bipolar type LEBRON MENENDEZ MD Aug 24, 2017 09:52
[2017-08-24] MEDS: NICOTINE CARTRIDGE 1 EA PO PRN (14:22)
[2017-08-24] MEDS: MIRTAZAPINE 15 MG TAB PO SCH (20:57)
[2017-08-24] MEDS: DIVALPROEX SOD ER 500 MG TABSR PO SCH (20:57)
[2017-08-25] MEDS: LEVOTHYROXINE SOD 0.1 MG TAB PO SCH (06:00)
[2017-08-25 06:13] VITALS: BP 112/68
[2017-08-25] MEDS: MULTIVITAMINS PO SCH (08:06)
--- NOTE | 2017-08-25 09:09 | BHS Progress Note ---
[facility] - Subjective Progress Notes Subjective Patient continues to be cooperative on the unit, frustrated at times, but continues to socialize well on the unit. Mood okay today, appetite and sleep are currently good. No other concerns. Suicidal Ideation: None Homicidal Ideation: None [facility] - Objective Physical Exam Muscle Strength and Tone: WNL Gait and Station: Steady [facility] Medications Reviewed: Side Effects, Benefits of Medication, Risks Allergies Reviewed: Yes Mental Status Exam General Appearance: Casual, Well Groomed, No Good Eye Contact (appears baseline ), Cooperative, Polite, Good Interaction, No Tearful, No Psychomotor Agitation, No Psychomotor Retardation, No Bizarre Mannerisms, No Tics, Other (poor eye contact; multiple tatoos, piercings) Speech: Clear, Normal Volume, Normal Tone, Delayed Mood: Dysthmic/Depressed (improved overall, frustrated at times) Affect: Calm, No Sad, Neutral, No Tearful, No Anxious, No Agitated Thought Process: Organized, Goal Directed (I want to go home), No Loose Associations, No Flight of Ideas Thought Content: No Suicidal Ideation (denies today, lengthy pattern of return to substance use folllowed by return of suicdal thoughts. ), No Homicidal Ideation, No Delusions, No Auditory Halllucinations, No Visual Hallucinations, No Thought Broadcasting, No Ideas of Reference, No Obsessions, Compulsions Sensorium: Clear Cognition: Alert & Oriented-Person, Alert & Oriented-Place, Alert & Oriented- Time, Tigei-Pozxnfbf-Fvmofocxs (partially) Memory: Immediate, Recent, Remote Intelligence: Below Average (borderline intelectual functioning verses mild intelectual impairment. ) Insight Judgment: Poor (limited by intelectual ability, and negatively influenced further by alcohol and cannabis use. ) [facility] Assessment and Plan [id number] Encounter Date: Aug 25, 2017 Vizw-hc-Lvez Encounter Time: 09:00 [facility] Plan: Necessary Precautions, Individual/Group Therapy, Admin/Titrate Meds, Educate Patient Tobacco Medications: Not Appropriate Condition Problems: (1) Alcohol-induced mood disorder with depressive symptoms Optional Permanent Comment: significant dysphoria follows alcohol intoxication in this patient. Last Edited By: Lebron Menendez on Aug 09, 2017 10 :47 Status: Acute (2) Schizoaffective disorder Status: Chronic (3) Alcohol dependence Status: Chronic (4) Hypothyroidism Status: Chronic (5) Cannabis use disorder, severe, in controlled environment Status: Chronic Condition 1. continue treatment. 2. no medication changes. Problem Qualifiers (1) Schizoaffective disorder: Schizoaffective disorder type: bipolar Qualified Codes: F25.0 - Schizoaffective disorder, bipolar type LEBRON MENENDEZ MD Aug 25, 2017 09:09
[2017-08-25] MEDS: NICOTINE INH SYSTEM 10 MG/INH INH PRN (15:19)
[2017-08-25] MEDS: NICOTINE CARTRIDGE 1 EA PO PRN (15:21)
[2017-08-25] MEDS: MIRTAZAPINE 15 MG TAB PO SCH (20:10)
[2017-08-25] MEDS: DIVALPROEX SOD ER 500 MG TABSR PO SCH (20:10)
[2017-08-26] MEDS: LEVOTHYROXINE SOD 0.1 MG TAB PO SCH (05:34)
[2017-08-26 06:30] VITALS: BP 110/62
[2017-08-26] MEDS: MULTIVITAMINS PO SCH (08:13)
--- NOTE | 2017-08-26 13:40 | BHS Progress Note ---
[facility] - Subjective Progress Notes Subjective "I'm worried about going to [facility] because of someone that's there." States another resident at [facility] he is concerned about, possible transfer this upcoming week Denies depression, anxiety or anger. Sleeping during daytime hours, encourage groups and out of bed. Per staff has not been active or participating in activities, up to eat otherwise minimal activity Suicidal Ideation: None Homicidal Ideation: None [facility] - Objective Physical Exam Muscle Strength and Tone: WNL Gait and Station: Steady S Medications Reviewed: Side Effects, Benefits of Medication, Risks Allergies Reviewed: Yes Mental Status Exam General Appearance: Casual, Well Groomed, No Good Eye Contact (appears baseline ), Cooperative, Polite, Good Interaction, No Tearful, No Psychomotor Agitation, No Psychomotor Retardation, No Bizarre Mannerisms, No Tics, Other (poor eye contact; multiple tatoos, piercings) Speech: Clear, Normal Volume, Normal Tone, Delayed Mood: Dysthmic/Depressed (improved overall, frustrated at times) Affect: Calm, No Sad, Neutral, No Tearful, No Anxious, No Agitated Thought Process: Organized, Goal Directed (I want to go home), No Loose Associations, No Flight of Ideas Thought Content: No Suicidal Ideation (denies today, lengthy pattern of return to substance use folllowed by return of suicdal thoughts. ), No Homicidal Ideation, No Delusions, No Auditory Halllucinations, No Visual Hallucinations, No Thought Broadcasting, No Ideas of Reference, No Obsessions, Compulsions Sensorium: Clear Cognition: Alert & Oriented-Person, Alert & Oriented-Place, Alert & Oriented- Time, Txvzh-Himfuksc-Bmdwjiohs (partially) Memory: Immediate, Recent, Remote Intelligence: Below Average (borderline intelectual functioning verses mild intelectual impairment. ) Insight Judgment: Poor (limited by intelectual ability, and negatively influenced further by alcohol and cannabis use. ) Lab Vital Signs Date Time Temp Pulse Resp B/P (MAP) Pulse Ox O2 Delivery O2 Flow Rate FiO2 08/26/17 06:30 97.9 45 110/62 (78) 90 Room Air 08/24/17 03:24 15 Allergies Coded Allergies No Known Allergies (Verified Allergy, Mild, 08/07/17) [facility] Assessment and Plan Nwul-gb-[id number] Encounter Date: Aug 26, 2017 Gviv-ry-Jnxj Encounter Time: 13:00 [facility] Plan: Necessary Precautions, Individual/Group Therapy, Admin/Titrate Meds, Educate Patient Tobacco Medications: Not Appropriate Condition Problems: (1) Schizoaffective disorder Status: Chronic (2) Hypothyroidism Status: Chronic (3) Cannabis use disorder, severe, in controlled environment Status: Chronic (4) Alcohol-induced mood disorder with depressive symptoms Optional Permanent Comment: significant dysphoria follows alcohol intoxication in this patient. Last Edited By: Дмитрий De Jesus on Aug 09, 2017 10 :47 Status: Acute (5) Alcohol withdrawal Status: Resolved Condition Continue current medication and treatment Maintain precautions Encourage out of bed activities and participation in groups Problem Qualifiers (1) Schizoaffective disorder: Schizoaffective disorder type: bipolar Qualified Codes: F25.0 - Schizoaffective disorder, bipolar type RINA TELLO NP Aug 26, 2017 13:40
[2017-08-26] MEDS: DIVALPROEX SOD ER 500 MG TABSR PO SCH (21:00)
[2017-08-26] MEDS: MIRTAZAPINE 15 MG TAB PO SCH (21:24)
[2017-08-27 04:55] VITALS: BP 98/56
[2017-08-27] MEDS: LEVOTHYROXINE SOD 0.1 MG TAB PO SCH (06:03)
[2017-08-27] MEDS: MULTIVITAMINS PO SCH (08:27)
--- NOTE | 2017-08-27 12:02 | BHS Progress Note ---
[facility] - Subjective Progress Notes Subjective "I'm doing fine. I want to come back to [place]. I'll make it work. I'm just irritated that I got here." Refusing groups, wants to remain in bed all day, up ambulating in hallway Denies depression, reports frustration with being here Denies urge for self harm, suicidal or homicidal ideation Suicidal Ideation: None Homicidal Ideation: None [facility] - Objective Physical Exam Muscle Strength and Tone: WNL Gait and Station: Steady [facility] Medications Reviewed: Side Effects, Benefits of Medication, Risks Allergies Reviewed: Yes Mental Status Exam General Appearance: Casual, Well Groomed, No Good Eye Contact (appears baseline ), Cooperative, Polite, Good Interaction, No Tearful, No Psychomotor Agitation, No Psychomotor Retardation, No Bizarre Mannerisms, No Tics, Other (poor eye contact; multiple tatoos, piercings) Speech: Clear, Normal Volume, Normal Tone, Delayed Mood: Dysthmic/Depressed (improved overall, frustrated at times) Affect: Calm, No Sad, Neutral, Withdrawn, No Tearful, No Anxious, Agitated Thought Process: Organized, Goal Directed (I want to go home), No Loose Associations, No Flight of Ideas Thought Content: No Suicidal Ideation (denies today, lengthy pattern of return to substance use folllowed by return of suicdal thoughts. ), No Homicidal Ideation, No Delusions, No Auditory Halllucinations, No Visual Hallucinations, No Thought Broadcasting, No Ideas of Reference, No Obsessions, Compulsions Sensorium: Clear Cognition: Alert & Oriented-Person, Alert & Oriented-Place, Alert & Oriented- Time, Qxpiy-Zukfztoa-Znwulkugz (partially) Memory: Immediate, Recent, Remote Intelligence: Below Average (borderline intelectual functioning verses mild intelectual impairment. ) Insight Judgment: Poor (limited by intelectual ability, and negatively influenced further by alcohol and cannabis use. ) Lab Vital Signs Date Time Temp Pulse Resp B/P (MAP) Pulse Ox O2 Delivery O2 Flow Rate FiO2 08/26/17 06:30 97.9 45 110/62 (78) 90 Room Air 08/24/17 03:24 15 Allergies Coded Allergies No Known Allergies (Verified Allergy, Mild, 08/07/17) [facility] Assessment and Plan Lbdt-gd-Ylbr Encounter Date: Aug 27, 2017 Yvhk-jt-Mciq Encounter Time: 12:00 [facility] Plan: Necessary Precautions, Individual/Group Therapy, Admin/Titrate Meds, Educate Patient Tobacco Medications: Not Appropriate Condition Problems: (1) Schizoaffective disorder Status: Chronic (2) Hypothyroidism Status: Chronic (3) Cannabis use disorder, severe, in controlled environment Status: Chronic (4) Alcohol-induced mood disorder with depressive symptoms Optional Permanent Comment: significant dysphoria follows alcohol intoxication in this patient. Last Edited By: Дмитрий De Jessu on Aug 09, 2017 10 :47 Status: Acute (5) Alcohol withdrawal Status: Resolved Condition Continue current medications and treatment Encourage activity and out of bed daytime hours Awaiting transfer to [facility] Problem Qualifiers (1) Schizoaffective disorder: Schizoaffective disorder type: bipolar Qualified Codes: F25.0 - Schizoaffective disorder, bipolar type RINA TELLO NP Aug 27, 2017 12:02
[2017-08-27] MEDS: NICOTINE INH SYSTEM 10 MG/INH INH PRN (17:03)
[2017-08-27] MEDS: MIRTAZAPINE 15 MG TAB PO SCH (20:11)
[2017-08-27] MEDS: DIVALPROEX SOD ER 500 MG TABSR PO SCH (20:12)
[2017-08-28 05:21] VITALS: BP 100/66
[2017-08-28] MEDS: LEVOTHYROXINE SOD 0.1 MG TAB PO SCH (05:21)
[2017-08-28] MEDS: MULTIVITAMINS PO SCH (07:58)
[2017-08-28] MEDS: NICOTINE CARTRIDGE 1 EA PO PRN (07:58)
[2017-08-28] MEDS: NICOTINE INH SYSTEM 10 MG/INH INH PRN (07:58)
--- NOTE | 2017-08-28 09:38 | BHS Progress Note ---
[facility] - Subjective Progress Notes Subjective Patient frustrated about going to [facility], and continues to state "I just want to go home". Patient noted to remain cooperative on the unit and does seem to enjoy socialization in a structured environment. Appetite and sleep good, patient denies any symptoms of psychosis. Able to go for walks appropriately off the unit, escorted with no concerns. Patient scheduled for transport to the [facility], Suicidal Ideation: None Homicidal Ideation: None S - Objective Physical Exam Vital Signs Hematology Test 08/19/17 05:50 Red Blood Count 4.92 M/uL (4.00-5.60) Mean Corpuscular Volume 90.9 fL (80.0-96.0) Mean Corpuscular Hemoglobin 30.4 pg (26.0-33.0) Mean Corpuscular Hemoglobin Concent 33.4 g/dL (32.0-36.0) Red Cell Distribution Width 14.0 % (11.5-14.5) Mean Platelet Volume 8.3 fL (7.2-11.1) Neutrophils (%) (Auto) 51.6 % (39.4-72.5) Lymphocytes (%) (Auto) 35.1 % (17.6-49.6) Monocytes (%) (Auto) 10.8 % (4.1-12.4) Eosinophils (%) (Auto) 1.7 % (0.4-6.7) Basophils (%) (Auto) 0.8 % (0.3-1.4) Nucleated RBC Relative Count (auto) 0.0 /100WBC Neutrophils # (Auto) 2.6 K/uL (2.0-7.4) Lymphocytes # (Auto) 1.8 K/uL (1.3-3.6) Monocytes # (Auto) 0.6 K/uL (0.3-1.0) Eosinophils # (Auto) 0.1 K/uL (0.0-0.5) Basophils # (Auto) 0.0 K/uL (0.0-0.1) Nucleated RBC Absolute Count (auto) 0.00 K/uL Sodium Level 138 mmol/L (137-145) Potassium Level 3.8 mmol/L (3.5-5.0) Chloride Level 100 mmol/L (98-107) Carbon Dioxide Level 28 mmol/L (22-30) Blood Urea Nitrogen 8 mg/dl (9-21) Creatinine 0.80 mg/dl (0.66-1.25) Glomerular Filtration Rate Calc > 60.0 Random Glucose 85 mg/dl (75-110) Calcium Level 8.6 mg/dl (8.4-10.2) Total Bilirubin 0.2 mg/dl (0.2-1.3) Aspartate Amino Transf (AST/SGOT) 25 U/L (0-35) Alanine Aminotransferase (ALT/SGPT) 25 U/L (0-56) Alkaline Phosphatase 61 U/L (0-126) Total Protein 5.8 gm/dl (6.3-8.2) Albumin 3.0 g/dl (3.5-5.0) Valproic Acid (Depakene) Level 51.0 ug/ml Chemistry Test 08/19/17 05:50 White Blood Count 5.1 k/uL (4.5-11.0) Red Blood Count 4.92 M/uL (4.00-5.60) Hemoglobin 14.9 g/dL (14.0-18.0) Hematocrit 44.7 % (42.0-52.0) Mean Corpuscular Volume 90.9 fL (80.0-96.0) Mean Corpuscular Hemoglobin 30.4 pg (26.0-33.0) Mean Corpuscular Hemoglobin Concent 33.4 g/dL (32.0-36.0) Red Cell Distribution Width 14.0 % (11.5-14.5) Platelet Count 169 K/uL (150-450) Mean Platelet Volume 8.3 fL (7.2-11.1) Neutrophils (%) (Auto) 51.6 % (39.4-72.5) Lymphocytes (%) (Auto) 35.1 % (17.6-49.6) Monocytes (%) (Auto) 10.8 % (4.1-12.4) Eosinophils (%) (Auto) 1.7 % (0.4-6.7) Basophils (%) (Auto) 0.8 % (0.3-1.4) Nucleated RBC Relative Count (auto) 0.0 /100WBC Neutrophils # (Auto) 2.6 K/uL (2.0-7.4) Lymphocytes # (Auto) 1.8 K/uL (1.3-3.6) Monocytes # (Auto) 0.6 K/uL (0.3-1.0) Eosinophils # (Auto) 0.1 K/uL (0.0-0.5) Basophils # (Auto) 0.0 K/uL (0.0-0.1) Nucleated RBC Absolute Count (auto) 0.00 K/uL Glomerular Filtration Rate Calc > 60.0 Calcium Level 8.6 mg/dl (8.4-10.2) Total Bilirubin 0.2 mg/dl (0.2-1.3) Aspartate Amino Transf (AST/SGOT) 25 U/L (0-35) Alanine Aminotransferase (ALT/SGPT) 25 U/L (0-56) Alkaline Phosphatase 61 U/L (0-126) Total Protein 5.8 gm/dl (6.3-8.2) Albumin 3.0 g/dl (3.5-5.0) Valproic Acid (Depakene) Level 51.0 ug/ml Toxicology Test 08/19/17 05:50 Valproic Acid (Depakene) Level 51.0 ug/ml Muscle Strength and Tone: WNL Gait and Station: Steady [facility] Medications Reviewed: Side Effects, Benefits of Medication, Risks Allergies Reviewed: Yes Mental Status Exam General Appearance: Casual, Well Groomed, No Good Eye Contact (appears baseline ), Cooperative, Polite, Good Interaction, No Tearful, No Psychomotor Agitation, No Psychomotor Retardation, No Bizarre Mannerisms, No Tics, Other (poor eye contact; multiple tatoos, piercings) Speech: Clear, Normal Volume, Normal Tone, Delayed Mood: Dysthmic/Depressed (improved overall, frustrated at times) Affect: Calm, No Sad, Neutral, Withdrawn, No Tearful, No Anxious, Agitated Thought Process: Organized, Goal Directed (I want to go home), No Loose Associations, No Flight of Ideas Thought Content: No Suicidal Ideation (denies today, lengthy pattern of return to substance use folllowed by return of suicdal thoughts. ), No Homicidal Ideation, No Delusions, No Auditory Halllucinations, No Visual Hallucinations, No Thought Broadcasting, No Ideas of Reference, No Obsessions, Compulsions Sensorium: Clear Cognition: Alert & Oriented-Person, Alert & Oriented-Place, Alert & Oriented- Time, Ztdkx-Nrhvommc-Qbxavpkgp (partially) Memory: Immediate, Recent, Remote Intelligence: Below Average (borderline intelectual functioning verses mild intelectual impairment. ) Insight Judgment: Poor (limited by intelectual ability, and negatively influenced further by alcohol and cannabis use. ) [facility] Assessment and Plan Lztr-yr-[id number] Encounter Date: Aug 28, 2017 Gaeg-rs-Ybwx Encounter Time: 08:40 S Plan: Necessary Precautions, Individual/Group Therapy, Admin/Titrate Meds, Educate Patient Tobacco Medications: Not Appropriate Condition Problems: (1) Alcohol-induced mood disorder with depressive symptoms Optional Permanent Comment: significant dysphoria follows alcohol intoxication in this patient. Last Edited By: Lebron Menendez on Aug 09, 2017 10 :47 Status: Acute (2) Schizoaffective disorder Status: Chronic (3) Alcohol dependence Status: Chronic (4) Hypothyroidism Status: Chronic (5) Cannabis use disorder, severe, in controlled environment Status: Chronic Condition 1. continue treatment. 2. [facility] hospital tomorrow. Problem Qualifiers (1) Schizoaffective disorder: Schizoaffective disorder type: bipolar Qualified Codes: F25.0 - Schizoaffective disorder, bipolar type LEBRON MENENDEZ MD Aug 28, 2017 09:38
[2017-08-28] MEDS: MIRTAZAPINE 15 MG TAB PO SCH (21:00)
[2017-08-28] MEDS: DIVALPROEX SOD ER 500 MG TABSR PO SCH (21:00)
[2017-08-29] MEDS: LEVOTHYROXINE SOD 0.1 MG TAB PO SCH (05:26)
[2017-08-29 05:30] VITALS: BP 103/58
[2017-08-29] MEDS ORDERED: NICOTINE CARTRIDGE PUFF (07:20)
--- NOTE | 2017-08-30 18:24 | TRANSFER SUMMARY ---
"FINAL DIAGNOSES PER DSM-V Schizoaffective disorder, bipolar type. Cannabis use disorder, severe. Alcohol use disorder, severe. 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 Hypothyroidism. Limited ability to function independently. REASON FOR ADMISSION Please see H and P for full details. This is a 46-year-old male who is very well known to the [facility]. Patient has a series of frequent admissions where patient quickly returns to not taking medications as prescribed on an outpatient basis, not following up for any treatment, engaging in marijuana use and heavy alcohol use, and having a return of suicidal thoughts. Patient is then readmitted to the unit, again on multiple occasions. Patient is noted, however, to do very well on the unit in a social atmosphere. Although patient complains at times and promotes a frustration about being on the unit, patient seems to enjoy structured living. Patient has a history of doing relatively well in an [facility] term for many years after leaving [place] for a time, but upon return to [facility] patient quickly decompensated, and again, aforementioned frequent admissions resulted in commitment to the [facility]. PHYSICAL EXAMINATION GENERAL: Please see emergency room note. Notable for a 46-year-old male voicing suicidal intent. VITAL SIGNS: At the time of admission, temperature 98.6, pulse 72, respiratory rate 18, blood pressure 116/80 and pulse oximetry 92 on room air. Vital signs at the time of departure from [facility]: Temperature 98.2, pulse 51, respiratory rate 16, blood pressure 103/58 and pulse oximetry 91 on room air. LABORATORY DATA On August 19, 2017, CBC unremarkable, CMP unremarkable as well, and Depakote level was 51. At the time of admission, cannabis screen was positive. with a serum alcohol level of 214. Depakote level at the time of admission nondetectable. TSH noted to be elevated at 11.10 in this patient with hypothyroid condition who does not take his Synthroid as soon as he exits the hospital. MENTAL STATUS EXAMINATION AT THE TIME OF TRANSFER GENERAL APPEARANCE, BEHAVIOR AND ATTITUDE: This is a pleasant, cooperative 46- year-old male, interacting well with this provider. No psychomotor agitation or retardation. No bizarre mannerisms or tics. SPEECH: Considered baseline in this patient who likely has underlying in utero alcohol and drug affects. | MOOD: Described to be okay and glad to be leaving the [facility] Unit. AFFECT: Minimally constricted to full at times. THOUGHT PROCESSES: Appear goal directed, logical. Patient stating he will not come back to a place like this. No loose associations or flight of ideas. THOUGHT CONTENT: Free of auditory or visual hallucinations, ideas of reference , thought broadcastings, delusions, obsessions, compulsions. Patient adamantly denying suicidal or homicidal ideation. SENSORIUM: Clear. COGNITION: Alert and oriented to person, place, time and situation. MEMORY: Immediate, recent and remote estimated intact. INTELLIGENCE: Limited. Patient suffering from borderline intellectual functioning, versus mild intellectual disability, and likely starting in utero. INSIGHT AND JUDGMENT: Limited. Patient functions well in structured living, but left to his own devices quickly goes off all medications and falls back into substance use, resulting in rapid return of suicidal thoughts. RESULTS OF TESTING IMAGING: None. LABORATORY DATA: See above. CONSULTATIONS: None. TREATMENT Patient received medications, participated in individual and group therapy. HOSPITAL COURSE Patient is again very well known to the Behavioral Health Unit here at [facility]. Patient quickly returns to normal state when Synthroid is restarted. Patient also taking Depakote to help with mood stability as well. Alcohol withdrawal was not concerning. Patient eating well, sleeping well on the unit. Patient adamantly denying any symptoms of psychosis on the unit. CONDITION OF PATIENT ON TRANSFER Stable for transport to [facility], accompanied by [facility] staff. Considered minimal risk to himself or others. DISPOSITION Patient would follow up at the [facility], to continue to search for adequate structured living environment upon discharge. Crisis line was given should symptoms return. MEDICATIONS 1. Depakote 1000 mg orally at bedtime. 2. Synthroid 100 mcg daily. 3. Mirtazapine 15 mg at bedtime. 4. Multivitamin with mineral daily. 5. Nicotine replacement. Risks, benefits and alternatives of the above discharge plan were discussed. Informed consent was given to proceed with above transfer plan by this patient and [facility] staff. BELEN"
== END 2017-08-29 08:08 | DRG 885 ==
LOC: BHS 10:15
PROVIDERS: ADMIT Psychiatry & Neurology Psychiatry; ATTEND Psychiatry & Neurology Psychiatry
DX: F25.0 Schizoaffective disorder, bipolar type (principal); F10.24 Alcohol dependence with alcohol-induced mood disorder; R45.851 Suicidal ideations; R41.83 Borderline intellectual functioning; F12.20 Cannabis dependence, uncomplicated; Y90.7 Blood alcohol level of 200-239 mg/100 ml; E03.9 Hypothyroidism, unspecified; F34.1 Dysthymic disorder; Z91.14 Patient's other noncompliance with medication regimen
CPT/HCPCS: 36415; 80164; 80305; 80320; 80329; 81001; 82040; 82247; 82310; 82374; 82435; 82565; 82947; 83735; 84075; 84132; 84155; 84295; 84443; 84450; 84460; 84520; 85025; 93005; 96372; 99285

== ENCOUNTER 2017-09-24 20:51 | Emergency (ER) | payer MEDICARE ==
[~2017-09-24 20:51] MED LIST changes: +NICOTINE CARTRIDGE PUFF
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
[2017-09-24 22:00] VITALS: BP 132/95
--- NOTE | 2017-09-24 23:51 | RADIOLOGY IMAGING REPORT ---
FACILITY: [facility] [place]IENT NAME: Alphonse Del Angel : 1970 MR: [id number] V: [id number] EXAM DATE: ORDERING PHYSICIAN: MIRNA BAEZA TECHNOLOGIST: Location: [facility] - [place] Patient: Alphonse Del Angel : 1970 Visit/Account:[id number] Date of Sevice: 09/24/2017 HEAD W/O CONTRAST, C-SPINE W/O CONTRAST CT BRAIN WITHOUT CONTRAST CLINICAL INDICATION: fall skateboarding, no helmet COMPARISON: April 26, 2008 TECHNIQUE: Contiguous axial CT images of the brain and cervical spine were obtained without IV contra st. Sagittal and coronal reformatted images were also performed. One of the following dose optimization techniques was utilized in the performance of this exam: Autom ated exposure control; adjustment of the mA and/or kV according to the patient's size; or use of an i terative reconstruction technique. Specific details can be referenced in the facility's radiology C T exam operational policy. FINDINGS: BRAIN: BRAIN:The ventricles are symmetric and normal in size. The brain parenchyma appears normal. The bra instem and cerebellum appear normal. The main-white matter differentiation is preserved and the basil ar cisterns appear normal. There is no mass, acute infarct, hemorrhage or shift of midline. PARANASAL SINUSES & MASTOIDS: Well aerated. SKULL BASE & CRANIUM: Visualized osseous structures are intact. SOFT TISSUES: Mild soft tissue swelling within the high posterior scalp, to the left of midline.. CERVICAL SPINE: Alignment: Normal. Cranio-cervical junction: Negative. Vertebral bodies: Negative. Posterior elements: Negative. Hardware: None. Disc Spaces: Minimal degenerative changes. Soft tissues: Negative. Visualized upper chest: Negative. IMPRESSION 1. No acute findings within the head or cervical spine. 2. Mild soft tissue swelling/hematoma within the high posterior scalp, to the left of midline. Report Dictated By: Jhony Carmona MD at 09/24/2017 11:42 PM Report E-Signed By: Jhony Carmona MD at 09/24/2017 11:46 PM WSN:[id number]
--- NOTE | 2017-09-24 23:51 | RADIOLOGY IMAGING REPORT ---
FACILITY: [facility] PATIENT NAME: Alphonse Del Angel : 1970 MR: [id number] V: [id number] EXAM DATE: ORDERING PHYSICIAN: MIRNA BAEZA TECHNOLOGIST: Location: [facility] - [place] Patient: Alphonse Del Angel : 1970 Visit/Account:[id number] Date of Sevice: 09/24/2017 HEAD W/O CONTRAST, C-SPINE W/O CONTRAST CT BRAIN WITHOUT CONTRAST CLINICAL INDICATION: fall skateboarding, no helmet COMPARISON: April 26, 2008 TECHNIQUE: Contiguous axial CT images of the brain and cervical spine were obtained without IV contra st. Sagittal and coronal reformatted images were also performed. One of the following dose optimization techniques was utilized in the performance of this exam: Autom ated exposure control; adjustment of the mA and/or kV according to the patient's size; or use of an i terative reconstruction technique. Specific details can be referenced in the facility's radiology C T exam operational policy. FINDINGS: BRAIN: BRAIN:The ventricles are symmetric and normal in size. The brain parenchyma appears normal. The bra instem and cerebellum appear normal. The main-white matter differentiation is preserved and the basil ar cisterns appear normal. There is no mass, acute infarct, hemorrhage or shift of midline. PARANASAL SINUSES & MASTOIDS: Well aerated. SKULL BASE & CRANIUM: Visualized osseous structures are intact. SOFT TISSUES: Mild soft tissue swelling within the high posterior scalp, to the left of midline.. CERVICAL SPINE: Alignment: Normal. Cranio-cervical junction: Negative. Vertebral bodies: Negative. Posterior elements: Negative. Hardware: None. Disc Spaces: Minimal degenerative changes. Soft tissues: Negative. Visualized upper chest: Negative. IMPRESSION 1. No acute findings within the head or cervical spine. 2. Mild soft tissue swelling/hematoma within the high posterior scalp, to the left of midline. Report Dictated By: Jhony Carmona MD at 09/24/2017 11:42 PM Report E-Signed By: Jhony Carmona MD at 09/24/2017 11:46 PM WSN:[id number]
--- NOTE | 2017-09-24 23:52 | RADIOLOGY IMAGING REPORT ---
FACILITY: [facility] - [place], [place] PATIENT NAME: Alphonse Del Angel : 1970 MR: [id number] V: [id number] EXAM DATE: ORDERING PHYSICIAN: MIRNA BAEZA TECHNOLOGIST: Location: [facility] - [place] Patient: Alphonse Del Angel : 1970 Visit/Account:[id number] Date of Sevice: 09/24/2017 Exam type: CLAVICLE LEFT, HUMERUS LEFT, SHOULDER MIN 2 VIEWS LEFT Indication: Fall skateboarding Comparison: None available Findings: 2 views of the left shoulder, 2 views of the left clavicle. 2 views of the left humerus. There is no acute fracture-dislocation of the left glenohumeral joint, clavicle, or humerus. Limited views of the left upper lung zone are unremarkable. Visualized left acromioclavicular joint is unremarkable. Mild degenerative changes at the sternoclavi cular joint. IMPRESSION: 1. No acute osseous abnormality left shoulder, left clavicle, or left humerus. Report Dictated By: Jhony Carmona MD at 09/24/2017 11:47 PM Report E-Signed By: Jhony Carmona MD at 09/24/2017 11:50 PM WSN:[id number]
--- NOTE | 2017-09-24 23:53 | RADIOLOGY IMAGING REPORT ---
FACILITY: [facility] PATIENT NAME: Alphonse Del Angel : 1970 MR: [id number] V: [id number] EXAM DATE: ORDERING PHYSICIAN: MIRNA BAEZA TECHNOLOGIST: Location: [facility] Patient: Alphonse Del Angel : 1970 Visit/Account:[id number] Date of Sevice: 09/24/2017 Exam type: CLAVICLE LEFT, HUMERUS LEFT, SHOULDER MIN 2 VIEWS LEFT Indication: Fall skateboarding Comparison: None available Findings: 2 views of the left shoulder, 2 views of the left clavicle. 2 views of the left humerus. There is no acute fracture-dislocation of the left glenohumeral joint, clavicle, or humerus. Limited views of the left upper lung zone are unremarkable. Visualized left acromioclavicular joint is unremarkable. Mild degenerative changes at the sternoclavi cular joint. IMPRESSION: 1. No acute osseous abnormality left shoulder, left clavicle, or left humerus. Report Dictated By: Jhony Carmona MD at 09/24/2017 11:47 PM Report E-Signed By: Jhony Carmona MD at 09/24/2017 11:50 PM WSN:[id number]
--- NOTE | 2017-09-24 23:53 | RADIOLOGY IMAGING REPORT ---
FACILITY: [facility] - [place] PATIENT NAME: Alphonse Del Angel : 1970 MR: [id number] V: [id number] EXAM DATE: ORDERING PHYSICIAN: MIRNA BAEZA TECHNOLOGIST: Location: [facility] - [place] Patient: Alphonse Del Angel : 1970 Visit/Account:[id number] Date of Sevice: 09/24/2017 Exam type: CLAVICLE LEFT, HUMERUS LEFT, SHOULDER MIN 2 VIEWS LEFT Indication: Fall skateboarding Comparison: None available Findings: 2 views of the left shoulder, 2 views of the left clavicle. 2 views of the left humerus. There is no acute fracture-dislocation of the left glenohumeral joint, clavicle, or humerus. Limited views of the left upper lung zone are unremarkable. Visualized left acromioclavicular joint is unremarkable. Mild degenerative changes at the sternoclavi cular joint. IMPRESSION: 1. No acute osseous abnormality left shoulder, left clavicle, or left humerus. Report Dictated By: Jhony Carmona MD at 09/24/2017 11:47 PM Report E-Signed By: Jhony Carmona MD at 09/24/2017 11:50 PM WSN:[id number]
[2017-09-24] MEDS ORDERED: KETOROLAC 30 MG/ML VIAL IVP ONE (23:55)
== END 2017-09-25 00:17 | disposition home or self-care (01) ==
LOC: ER 21:16
DX: S40.012A Contusion of left shoulder, initial encounter (principal); W19.XXXA Unspecified fall, initial encounter; Y93.51 Activity, roller skating (inline) and skateboarding; Y92.830 Public park as the place of occurrence of the external cause; F10.10 Alcohol abuse, uncomplicated
CPT/HCPCS: 70450; 72125; 73000; 73030; 73060; 96374; 99283; A4565; J1885

== ENCOUNTER 2017-10-24 00:14 | Emergency (ER) | payer MEDICARE ==
[2017-10-24 00:16] VITALS: BP 144/95
--- NOTE | 2017-10-24 00:19 | ER Report ---
History and Physical Time Seen By MD: 00:19 Hx. of Stated Complaint: HALF-WAY CLEARANCE HPI/ROS CHIEF COMPLAINT: Alf clearance HISTORY OF PRESENT ILLNESS: This is a 46 year old male. He has been drinking tonight. He almost got hit by a car. He denies injuries or pain. He does drink regularly. He denies any other problems. Has a history of mental health problems. He takes levothyroxine and Mirtazipine. Allergies: Coded Allergies: No Known Allergies (Verified Allergy, Mild, 10/24/17) Home Meds Reported Medications Multivits,Th W-Fe,Other Min (THERA-M) 1 Each Tablet, 1 EACH PO QDAY 07/18/17 Mirtazapine (REMERON) 15 Mg Tab.rapdis, 15 MG PO QHS 07/18/17 Divalproex Sodium (DEPAKOTE ER) 500 Mg Tab.er.24h, 1000 MG PO QHS, TAB 07/18/17 Levothyroxine Sodium (LEVOTHYROXINE SODIUM) 100 Mcg Tablet, 100 MCG PO QDAY, TAB 07/10/17 Discontinued Reported Medications [Nicotrol Cartridge] No Conflict Check, 1 EA PO PRN Y for NICOTINE REPLACEMENT 07/18/17 Nicotine (NICOTROL) 10 Mg/Inh Ctr, 10 MG INH PRN Y for NICOTINE REPLACEMENT 07/18/17 Reviewed Nurses Notes: Yes Hx Smoking: Yes Smoking Status: Current: Every Day Smoker Exposure to Second Hand Smoke?: Yes Hx Substance Use Disorder: Yes Hx Alcohol Use: Yes Constitutional Vital Sign - Last 24 Hours 10/24/17 00:16 Temp 97.4 Pulse 72 Resp 17 B/P (MAP) 144/95 Pulse Ox 92 O2 Delivery Room Air Physical Exam General Appearance: Alert, intoxicated. No acute distress. Eyes: Pupils equal and round, mild injection. ENT: Normal oral mucosa. Moist mucous membranes. Tympanic membranes are normal. Neck: Neck is supple and non tender. Respiratory: Chest is non tender, lungs are clear to auscultation. Cardiac: regular rate and rhythm Gastrointestinal: Abdomen is soft and non tender, no masses, bowel sounds normal. Musculoskeletal: Extremities have full range of motion. Non tender. Skin: No rashes or lesions. DIFFERENTIAL DIAGNOSIS: After history and physical exam differential diagnosis was considered for alcohol intoxication here for alf clearance. Medical Decision Making ED Course/Re-evaluation ED Course No problems identified other than intoxication. Cleared to be discharged to alf with [employer]. Decision to Disposition Date: Oct 24, 2017 Decision to Disposition Time: 00:25 Depart Departure Latest Vital Signs Vital Signs Date Time Temp Pulse Resp B/P (MAP) Pulse Ox O2 Delivery O2 Flow Rate FiO2 10/24/17 00:16 97.4 72 17 144/95 92 Room Air Impression: Primary Impression: Alcohol abuse Condition: Condition Unchanged Disposition: [facility] TO HALF-WAY/CORRECTIONAL F Patient Instructions: Alcohol Intoxication (ED) EARL TORRES MD Oct 24, 2017 00:19
== END 2017-10-24 00:40 ==
LOC: ER 00:38
DX: F10.920 Alcohol use, unspecified with intoxication, uncomplicated (principal)
CPT/HCPCS: 99281

== ENCOUNTER → 2017-10-31 | Outpatient (REF) | payer MEDICARE | LOC: LAB 17:44 → EDSTATUS 17:45 → ZZSENDIN 17:46 | PROVIDERS: ATTEND Nurse Practitioner Family | DX: Z11.3 Encounter for screening for infections with a predominantly sexual mode of transmission (principal) | CPT/HCPCS: 86703 ==

== ENCOUNTER → 2017-10-31 | Outpatient (CLI) | payer MEDICARE ==
[2017-10-31 11:01] LABS: PLATELET COUNT, AUTOMATED 193 K/uL (150-450)
== END ==
LOC: LAB 10:27
PROVIDERS: ATTEND Registered Nurse Psychiatric/Mental Health
DX: F10.10 Alcohol abuse, uncomplicated (principal); Z79.899 Other long term (current) drug therapy; Z11.3 Encounter for screening for infections with a predominantly sexual mode of transmission
CPT/HCPCS: 36415; 80074; 80164; 80305; 82040; 82247; 82306; 82310; 82374; 82435; 82565; 82947; 84075; 84132; 84155; 84295; 84439; 84443; 84450; 84460; 84481; 84520; 85025; 86703

== ENCOUNTER 2017-12-14 18:16 | Emergency (ER) | payer MEDICARE ==
--- NOTE | 2017-12-14 18:19 | ER Report ---
History and Physical Time Seen By MD: 18:18 HPI/ROS CHIEF COMPLAINT: suicidal ideation HISTORY OF PRESENT ILLNESS: This is a 47 year old male. He was arrested for DUI. Asked police to shoot him. He kept making suicidal statements. He kept banging his head against the wall. He is intoxicated. He will not talk to me much otherwise. He is profane. Restrained in handcuffs with police nearby. He did allow me to do a brief physical exam. He also said he would allow me to give him some shots of medicine to help keep him calm and let him sleep. Has long history of mental health and has been in the [facility] in the past. He is emergency detained by the [place] [employer]. REVIEW OF SYSTEMS: Unable to obtain Allergies: Coded Allergies: No Known Allergies (Verified Allergy, Mild, 12/15/17) Home Meds Reported Medications Divalproex Sodium (DEPAKOTE ER) 500 Mg Tab.er.24h, 1000 MG PO QHS, TAB 07/18/17 Discontinued Reported Medications Multivits,Th W-Fe,Other Min (THERA-M) 1 Each Tablet, 1 EACH PO QDAY 07/18/17 Mirtazapine (REMERON) 15 Mg Tab.rapdis, 15 MG PO QHS 07/18/17 Levothyroxine Sodium (LEVOTHYROXINE SODIUM) 100 Mcg Tablet, 100 MCG PO QDAY, TAB 07/10/17 Reviewed Nurses Notes: Yes Hx Smoking: Yes Smoking Status: Current: Every Day Smoker Exposure to Second Hand Smoke?: Yes Hx Substance Use Disorder: Yes Hx Alcohol Use: Yes Constitutional Vital Sign - Last 24 Hours 12/14/17 12/14/17 18:18 19:05 Temp 98.3 Pulse 76 70 Resp 16 B/P (MAP) 138/94 142/95 (111) Pulse Ox 93 95 O2 Delivery Room Air Physical Exam General Appearance: The patient is alert, has no immediate need for airway protection, he is intoxicated. Eyes: Pupils equal and round, with some scleral injection. ENT: Normal oral mucosa. Moist mucous membranes. Neck: Neck is supple and non tender. Respiratory: Chest is non tender, lungs are clear to auscultation. Cardiac: regular rate and rhythm Gastrointestinal: Abdomen is soft and non tender, no masses, bowel sounds normal. Musculoskeletal: Extremities have full range of motion. No tenderness in back or extremities. Skin: No rashes noted DIFFERENTIAL DIAGNOSIS: After history and physical exam differential diagnosis was considered for intoxication, suicidal ideation. Medical Decision Making Data Points Result Diagram: 12/14/17192412/14/171924 Laboratory Hematology Test 12/14/17 19:25 Red Blood Count 5.99 M/uL (4.00-5.60) Mean Corpuscular Volume 92.3 fL (80.0-96.0) Mean Corpuscular Hemoglobin 30.6 pg (26.0-33.0) Mean Corpuscular Hemoglobin Concent 33.2 g/dL (32.0-36.0) Red Cell Distribution Width 15.0 % (11.5-14.5) Mean Platelet Volume 8.3 fL (7.2-11.1) Neutrophils (%) (Auto) 57.7 % (39.4-72.5) Lymphocytes (%) (Auto) 32.0 % (17.6-49.6) Monocytes (%) (Auto) 9.3 % (4.1-12.4) Eosinophils (%) (Auto) 0.2 % (0.4-6.7) Basophils (%) (Auto) 0.8 % (0.3-1.4) Nucleated RBC Relative Count (auto) 0.1 /100WBC Neutrophils # (Auto) 2.8 K/uL (2.0-7.4) Lymphocytes # (Auto) 1.6 K/uL (1.3-3.6) Monocytes # (Auto) 0.5 K/uL (0.3-1.0) Eosinophils # (Auto) 0.0 K/uL (0.0-0.5) Basophils # (Auto) 0.0 K/uL (0.0-0.1) Nucleated RBC Absolute Count (auto) 0.00 K/uL Sodium Level 145 mmol/L (137-145) Potassium Level 3.5 mmol/L (3.5-5.0) Chloride Level 105 mmol/L (98-107) Carbon Dioxide Level 23 mmol/L (22-30) Blood Urea Nitrogen 4 mg/dl (9-21) Creatinine 0.90 mg/dl (0.66-1.25) Glomerular Filtration Rate Calc > 60.0 Random Glucose 96 mg/dl (75-110) Calcium Level 9.2 mg/dl (8.4-10.2) Magnesium Level 1.5 mg/dl (1.7-2.2) Total Bilirubin 0.7 mg/dl (0.2-1.3) Aspartate Amino Transf (AST/SGOT) 48 U/L (0-35) Alanine Aminotransferase (ALT/SGPT) 29 U/L (0-56) Alkaline Phosphatase 131 U/L (0-126) Total Protein 7.9 gm/dl (6.3-8.2) Albumin 4.5 g/dl (3.5-5.0) Salicylates Level < 10 mg/L Salicylate Last Dose Date unk Acetaminophen Level < 10 ug/ml Serum Alcohol 181 mg/dl Chemistry Test 12/14/17 19:25 White Blood Count 4.9 k/uL (4.5-11.0) Red Blood Count 5.99 M/uL (4.00-5.60) Hemoglobin 18.4 g/dL (14.0-18.0) Hematocrit 55.3 % (42.0-52.0) Mean Corpuscular Volume 92.3 fL (80.0-96.0) Mean Corpuscular Hemoglobin 30.6 pg (26.0-33.0) Mean Corpuscular Hemoglobin Concent 33.2 g/dL (32.0-36.0) Red Cell Distribution Width 15.0 % (11.5-14.5) Platelet Count 222 K/uL (150-450) Mean Platelet Volume 8.3 fL (7.2-11.1) Neutrophils (%) (Auto) 57.7 % (39.4-72.5) Lymphocytes (%) (Auto) 32.0 % (17.6-49.6) Monocytes (%) (Auto) 9.3 % (4.1-12.4) Eosinophils (%) (Auto) 0.2 % (0.4-6.7) Basophils (%) (Auto) 0.8 % (0.3-1.4) Nucleated RBC Relative Count (auto) 0.1 /100WBC Neutrophils # (Auto) 2.8 K/uL (2.0-7.4) Lymphocytes # (Auto) 1.6 K/uL (1.3-3.6) Monocytes # (Auto) 0.5 K/uL (0.3-1.0) Eosinophils # (Auto) 0.0 K/uL (0.0-0.5) Basophils # (Auto) 0.0 K/uL (0.0-0.1) Nucleated RBC Absolute Count (auto) 0.00 K/uL Glomerular Filtration Rate Calc > 60.0 Calcium Level 9.2 mg/dl (8.4-10.2) Magnesium Level 1.5 mg/dl (1.7-2.2) Total Bilirubin 0.7 mg/dl (0.2-1.3) Aspartate Amino Transf (AST/SGOT) 48 U/L (0-35) Alanine Aminotransferase (ALT/SGPT) 29 U/L (0-56) Alkaline Phosphatase 131 U/L (0-126) Total Protein 7.9 gm/dl (6.3-8.2) Albumin 4.5 g/dl (3.5-5.0) Salicylates Level < 10 mg/L Salicylate Last Dose Date unk Acetaminophen Level < 10 ug/ml Serum Alcohol 181 mg/dl Toxicology Test 12/14/17 19:25 Salicylates Level < 10 mg/L Salicylate Last Dose Date unk Acetaminophen Level < 10 ug/ml Serum Alcohol 181 mg/dl ED Course/Re-evaluation ED Course Because of agitation, the patient was given IM injections of Zyprexa 10mg, Benadryl 50mg, and Ativan 2mg. He agreed to these medications to help calm him down. Discussed the case with Dr. De Jesus who accepted the patient for admission to [facility]. Decision to Disposition Date: December 14, 2017 Decision to Disposition Time: 21:07 Depart Departure Latest Vital Signs Vital Signs Date Time Temp Pulse Resp B/P (MAP) Pulse Ox O2 Delivery O2 Flow Rate FiO2 12/14/17 19:05 70 142/95 (111) 95 12/14/17 18:18 98.3 16 Room Air Impression: Primary Impression: Depression with suicidal ideation Condition: Condition Unchanged Disposition: XFER TO [facility] EARL TORRES MD December 14, 2017 18:18
[2017-12-14] MEDS ORDERED: OLANZapine 10 MG VIAL IM ONLY ONE (18:40)
[2017-12-14] MEDS ORDERED: LORazepam 2 MG/ML VIAL IM ONE (18:40)
[2017-12-14] MEDS ORDERED: WATER STERILE 10 ML VIAL IM ONLY ONE (18:40)
[2017-12-14] MEDS ORDERED: diphenhydrAMINE 50 MG/ML VIAL IM ONE (18:40)
[2017-12-14] MEDS ORDERED: WATER FOR INJ,STERILE 20 ML 20 ML ONE (18:52)
[2017-12-14 19:05] VITALS: BP 142/95
--- NOTE | 2017-12-14 19:23 | BHS - Psychiatric Evaluation ---
ER - Title 25 MHE Evaluation Title 25 Evaluation Patient Detained By: Law Enforcement Referral Source: Law enforcement Date Patient Detained: December 14, 2017 Time Patient Detained: 18:02 Date Fdc Expires: Dec 19, 2017 Time Fdc Expires: 18:02 Legal Status: Police Hold: No Legal Status: Residence: [facility] Resident Assessment Data Provided By: Patient, Law Enforcement HPI/ROS: This is a 47 year old male. He was arrested for DUI. Asked police to shoot him. He kept making suicidal statements. He kept banging his head against the wall. He is intoxicated. He will not talk to me much otherwise. He is profane. Restrained in handcuffs with police nearby. He did allow me to do a brief physical exam. He also said he would allow me to give him some shots of medicine to help keep him calm and let him sleep. Has long history of mental health and has been in the [facility] in the past. He is emergency detained by the [place] [employer]. Admit due to SI or Attempt: Yes Suicide Plan: Has Plan with Access Alcohol or Drugs Involved: Yes Is Patient Info Reliable: No Is Collateral Info Reliable: Yes Mental Status Exam General Appearance: Unkept, Psychomotor Agitation Speech: Slurred, Rambling Mood: Dysthmic/Depressed Affect: Agitated Thought Process: Other (unable to determine) Thought Content: Other (unable to determine) Sensorium: Other (intoxicated) Cognition: Other (unable to determine) Memory: Other (unable to determine) Current Risk & History Current Dangerous Risk Assessm: Current Suicide Ideation Past Dangerous Risk Assessm: Suicide Ideation-last 6mo, Suicide Attempts-last 6mo Previous Suicide Attempt: Past - High Lethality Number of Attempts/Description Unknown details Previous Psychiatric Illness: Yes Previous Diagnosis/Treatment: unknown details Previous Psychiatric Treatment: Yes Previous Treatment Description Has been in the [facility] in the past, unknown other details Risk Assessment & Disposition Evaluated Risk Assessment: Patient is not speaking. Agitation and intoxicated. At this point assume high risk. Impression: Primary Impression: Depression with suicidal ideation Additional Impressions: History of suicide attempt Alcohol intoxication Meets Mental Illness Req.: Yes Meets Dangerousness Req.: Yes Emergency Fdc to be: Upheld Date of Decision: December 14, 2017 Time of Decision: 19:33 Patient is Medically Stable at: Yes Disposition: [facility] Problem Qualifiers Additional Impressions: Alcohol intoxication Complication of substance-induced condition: uncomplicated Qualified Codes: F10.920 - Alcohol use, unspecified with intoxication, uncomplicated EARL TORRES MD December 14, 2017 19:23
[2017-12-14 19:41] LABS: PLATELET COUNT, AUTOMATED 222 K/uL (150-450)
[2017-12-15] MEDS ORDERED: LEVO112T44 PO (10:39)
[2017-12-15] MEDS ORDERED: TRAZ-156 PO (10:39)
== END 2017-12-14 22:02 ==
LOC: ER 18:28
DX: F32.9 Major depressive disorder, single episode, unspecified (principal); R45.851 Suicidal ideations; R45.1 Restlessness and agitation
CPT/HCPCS: 36415; 83735; 84443; 85025; 96372; 99285; A4216; G0480; J1200; J2060; J3490; 80320; 80329; 82040; 82247; 82310; 82374; 82435; 82565; 82947; 84075; 84132; 84155; 84295; 84450; 84460; 84520

== ENCOUNTER 2017-12-14 21:17 | Inpatient (IN) | payer MEDICARE ==
[2017-12-14 22:15] VITALS: BP 109/69
[2017-12-15 02:15] VITALS: BP 125/78
[2017-12-15 06:15] VITALS: BP 121/69
[2017-12-15 09:30] VITALS: BP 118/84
[2017-12-15] MEDS ORDERED: TRAZ-156 PO (10:39)
[2017-12-15] MEDS ORDERED: LEVO112T44 PO (10:39)
[2017-12-15] MEDS ORDERED: MAG HYD/AL HYD/SIMETH 30ML UDC PO PRN (12:45)
[2017-12-15] MEDS: MULTIVITAMINS TAB PO SCH (13:20)
[2017-12-15] MEDS: FOLIC ACID 1 MG TAB PO SCH (13:20)
[2017-12-15] MEDS: THIAMINE HCL 100 MG TAB PO SCH (13:20)
[2017-12-15 14:00] VITALS: BP 118/68
--- NOTE | 2017-12-15 14:49 | SCHAAF H&P ---
DATE OF ADMISSION: December 14, 2017 Patient was seen at approximately 0900 hours on December 15, 2017 for note concerning this dictation. ATTENDING PHYSICIAN Дмитрий De Jesus MD PRESENTING PROBLEM, CHIEF COMPLAINT "Every time I get things going well, I fuck it up." HISTORY OF PRESENT ILLNESS This is a very well known 47-year-old male who presented under an emergency detainment, escorted by police from a local senior care, where patient had been recently arrested for a DUI. Patient was proclaiming depression, engaging in self harm, banging his head in the senior care apparently, patient asking police to shoot him. This type of behavior and presentation is not unknown in this patient when he is under the influence of alcohol and cannabis. Patient also notably positive for amphetamines at this presentation as well. Patient was admitted without incident, given sedating medications. Patient was cooperative at time of initial interview. Patient making poor eye contact, not wanting to communicate with this provider or treatment team staff. Apparently patient has had two DUIs this month, one in [facility], believed to be in [place], and now a second one here in [facility] in [place]. Patient has a history of many diagnoses, but most recently has not been taking any medications for psychosis or mood stability. Patient was remaining on trazodone most recently through outpatient provider for sleep, and some mild antidepressant effects, but also on Synthroid at 100 mcg daily for longstanding hypothyroid state. Patient unable to delve into any other psychiatric symptomatology at this time. MENTAL HEALTH HISTORY The patient has been inpatient here at [facility] on multiple occasions. Most recently patient was transferred to the [facility] from his most recent admission here. Patient then discharged back into [facility], where he had been staying at the [facility] and following up there. Patient has a longstanding history of mood decompensation when under the influence of substances, and patient has a longstanding history of relatively quick stabilization in the absence of illicit substance and/or alcohol use. Patient has had multiple parasuicidal attempts throughout his life and suicidal ideation in general. FAMILY PSYCHIATRIC HISTORY No known psychiatric illness except for substance abuse and alcohol abuse in the mother with possible in utero transmission of alcohol and drug abuse to this patient. PAST MEDICAL HISTORY The patient was exposed in utero to alcohol and drug abuse per past report. Patient does suffer from hypothyroidism, and most recently was on Synthroid 100 mcg. Patient is unlikely to take medications consistently on his own. Patient has been doing well, however, per [facility] report, remaining just on trazodone and Synthroid. He has been diagnosed with seizure disorder in the past and was treated with Dilantin and Depakote. However, seizures do not seem to be significant in the absence of antiseizure drugs, and are not believed to be present at all at this time in the patient's life. Patient's seizure disorder may be related to alcohol withdrawal or drug use in the past. ALLERGIES He has no known allergy. SOCIAL HISTORY The patient was born to a substance-using, alcohol-abusing mother, which likely resulted in the patient's current deficits according to some reports. At age [age], patient was adopted into an intact family. He was institutionalized at age 15 for aggressive behavior, and after that was placed in foster care. The patient graduated high school, was working in [place] in the past, had many different jobs. Patient was noted in the remote past noted to be working long- term at [employer]. Patient is on disability, currently [facility]. 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 Patient is believed to be his own legal guardian, receives social security disability. SUBSTANCE ABUSE HISTORY Patient currently using alcohol and cannabis again. Patient's amphetamine screen notably positive as well. He has abused epinephrine [id number] in the past, as well as LSD. In remote past, patient was known to be a binge drinker on the weekends while working at [employer] for many years, but eventually alcohol dependence did get to the point where patient's job was terminated. PHYSICAL EXAMINATION Please see emergency room note. Notable for agitated 47-year-old male who is well known to the emergency room staff under similar circumstances. Vital signs at the time of admission: Temperature 98.3, pulse 76, respiratory rate 16 , blood pressure 138/94 and pulse oximetry 93% on room air. LABORATORY DATA CBC notable for RBCs elevated at 5.99, hemoglobin and hematocrit elevated at 18.4 and 55.3 respectively. Chemistry panel notable for magnesium 1.5 and low, AST 48 and elevated, TSH 2.43. Toxicology screen notable for serum alcohol level of 181 upon admission. Urinalysis and urobilinogen present with trace ketones. Toxicology screen notably positive for amphetamines and cannabinoids. Patient is also positive for benzodiazepines, however, this was likely secondary to being given such in the emergency room. MENTAL STATUS EXAMINATION GENERAL APPEARANCE, BEHAVIOR AND ATTITUDE: Disheveled-appearing 47-year-old male making very poor eye contact. Patient quiet, dysphoric. No psychomotor retardation present. SPEECH: Poverty of speech noted, quiet. MOOD: Depressed appearing. AFFECT: Flat, mood-congruent. THOUGHT PROCESSES: No obvious loose associations or flight of ideas existed during interview. THOUGHT CONTENT: Free of auditory or visual hallucinations, ideas of reference , thought broadcastings, delusions, obsessions or compulsions. At time of admission, patient intoxicated, proclaiming suicidal ideations that normally resolve quickly on the unit. No homicidal ideation. SENSORIUM: Did appear to be mostly clear. COGNITION: Alert and oriented to person, place, time, mostly to situation. MEMORY: Immediate, recent and remote historically intact. INTELLIGENCE: Below average, based on previously knowledge of this patient. INSIGHT AND JUDGMENT: Limited, and certainly limited when under the influence of substances. . ASSESSMENT This is a well-known 47-year-old male currently under an emergency detainment and on a police hold. Patient is believed to have been arrested for driving under the influence for the second time this month. Patient was initially brought to senior care, where he verbalized suicidal ideation and was engaging in self harm activities. Patient brought under a police hold and emergency detainment to the [facility], where he was admitted and given sedative medications. At this time, will continue to evaluate patient. Will treat alcohol withdrawal that normally does not become a concern, and will continue Synthroid and trazodone. Will get collateral information, and will evaluate legal status in this patient who has relatively recently exited the [facility] system. DIAGNOSES PER DSM-V Alcohol use disorder, severe. Alcohol intoxification. Alcohol withdrawal. Cannabis use disorder, severe. Cannabis intoxication. Rule out stimulant use disorder, methamphetamine. 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 Hypothyroidism. History of schizoaffective disorder, bipolar type. Ongoing limited ability to function independently. PLAN 1. Admit to the unit. 2. Necessary precautions will be implemented. 3. Patient will participate in individual and group therapy. 4. Medications will be administered, titrated accordingly. 5. Collateral information to be obtained as necessary. 6. Will evaluate legal status and concerns regarding this patient. 7. Estimated length of stay three to five days with likely transfer to senior care upon departure. MTDD
[2017-12-15 20:08] VITALS: BP 117/73
[2017-12-15] MEDS: traZODone HCL 50 MG TAB PO SCH (21:12)
[2017-12-16] MEDS: LEVOTHYROXINE SOD 0.1 MG TAB PO SCH (05:54)
[2017-12-16 05:55] VITALS: BP 140/78
[2017-12-16] MEDS ORDERED: LEVOTHYROXINE SOD 0.112 MG TAB PO SCH (06:00)
[2017-12-16] MEDS: MULTIVITAMINS TAB PO SCH (08:39)
[2017-12-16] MEDS: FOLIC ACID 1 MG TAB PO SCH (08:39)
[2017-12-16] MEDS: THIAMINE HCL 100 MG TAB PO SCH (08:39)
--- NOTE | 2017-12-16 09:55 | BHS Progress Note ---
BHS - Subjective Progress Notes Subjective "Terrible...I messed up pretty bad." Client denies hallucinations. He endorses suicidal thoughts however will not disclose plan. Suicidal Ideation: Ongoing Homicidal Ideation: None BHS - Objective Physical Exam Vital Signs Vital Signs 12/15/17 12/16/17 14:00 05:55 Temp 98.2 Pulse 51 Resp 16 B/P (MAP) 140/78 (98) Pulse Ox 91 O2 Delivery Room Air Muscle Strength and Tone: WNL Gait and Station: Steady [facility] Medications Reviewed: Side Effects, Benefits of Medication, Risks Allergies Reviewed: Yes Mental Status Exam General Appearance: Casual, Cooperative, Unkept, No Bizarre Mannerisms, No Tics Speech: Clear, Spontaneous, Normal Rate, Normal Rhythm, Normal Volume, Normal Tone Mood: Dysthmic/Depressed Affect: Withdrawn Thought Process: Organized, Logical, Goal Directed, No Loose Associations, No Flight of Ideas Thought Content: Suicidal Ideation, No Auditory Halllucinations, No Visual Hallucinations, No Thought Broadcasting, No Ideas of Reference Sensorium: Clear Cognition: Alert & Oriented-Person, Alert & Oriented-Place, Alert & Oriented- Time, Okxng-Gqmtpxhz-Mtybpwnue Memory: Immediate, Recent, Remote Intelligence: Below Average Insight Judgment: Poor [facility] Assessment and Plan [id number] Encounter Date: Dec 16, 2017 Qtzy-ta-Hher Encounter Time: 08:30 BH Plan: Admit to Unit, Necessary Precautions, Individual/Group Therapy, Admin /Titrate Meds, Educate Patient Tobacco Medications: Not Appropriate Condition Multpiple Antipsychotics Used: No Problems: (1) Schizoaffective disorder Status: Chronic (2) Alcohol abuse Status: Chronic KOLBY BOWMAN NP Dec 16, 2017 09:55
[2017-12-16 12:20] VITALS: BP 110/70
[2017-12-16 18:00] VITALS: BP 112/72
[2017-12-16] MEDS: traZODone HCL 50 MG TAB PO SCH (20:57)
[2017-12-17] MEDS: LEVOTHYROXINE SOD 0.1 MG TAB PO SCH (05:57)
[2017-12-17 06:08] VITALS: BP 116/70
[2017-12-17] MEDS: FOLIC ACID 1 MG TAB PO SCH (07:56)
[2017-12-17] MEDS: MULTIVITAMINS TAB PO SCH (07:56)
[2017-12-17] MEDS: THIAMINE HCL 100 MG TAB PO SCH (07:56)
--- NOTE | 2017-12-17 10:59 | BHS Progress Note ---
[facility] - Subjective Progress Notes Subjective "I am worried about what to do with my car....I don't feel good today." Client refuses to get out of bed to come talk to the treatment team reporting that he feels light headed when stands up. He denies Si today. Denies hallucinations. Today he is reporting ambivalence about wanting to go back to the [facility] , whereas yesterday he requested this. Suicidal Ideation: Resolving Homicidal Ideation: None S - Objective Physical Exam Vital Signs Vital Signs 12/16/17 12/17/17 18:00 06:08 Temp 97.4 Pulse 45 Resp 16 B/P (MAP) 116/70 (85) Pulse Ox 91 O2 Delivery Room Air Muscle Strength and Tone: WNL Gait and Station: Steady [facility] Medications Reviewed: Side Effects, Benefits of Medication, Risks Allergies Reviewed: Yes Mental Status Exam General Appearance: Casual, Cooperative, Unkept, No Bizarre Mannerisms, No Tics Speech: Clear, Spontaneous, Normal Rate, Normal Rhythm, Normal Volume, Normal Tone Mood: Dysthmic/Depressed Affect: Withdrawn Thought Process: Organized, Logical, Goal Directed, No Loose Associations, No Flight of Ideas Thought Content: Suicidal Ideation, No Homicidal Ideation, No Delusions, No Auditory Halllucinations, No Visual Hallucinations, No Thought Broadcasting, No Ideas of Reference, No Obsessions, No Compulsions Sensorium: Clear Cognition: Alert & Oriented-Person, Alert & Oriented-Place, Alert & Oriented- Time, Cuuhy-Acbdcdzq-Pneunoocs Memory: Immediate, Recent, Remote Intelligence: Below Average Insight Judgment: Poor [facility] Assessment and Plan [id number] Encounter Date: Dec 17, 2017 [id number] Encounter Time: 09:45 [facility] Plan: Admit to Unit, Necessary Precautions, Individual/Group Therapy, Admin /Titrate Meds, Educate Patient Tobacco Medications: Not Appropriate Condition Multpiple Antipsychotics Used: No Problems: (1) Schizoaffective disorder Status: Chronic (2) Alcohol abuse Status: Chronic Problem Qualifiers (1) Schizoaffective disorder: Schizoaffective disorder type: bipolar Qualified Codes: F25.0 - Schizoaffective disorder, bipolar type KOLBY BOWMAN NP Dec 17, 2017 10:59
[2017-12-17 11:10] VITALS: BP 112/60
--- NOTE | 2017-12-17 18:13 | BHS - Psychiatric Evaluation ---
Title 25 Evaluation Hearing Report: 109 Date of Report: Dec 17, 2017 Examiner: Patito Bhakta M.S., L.P.C. Patient Detained By: Physician (Dr. Sol), Law Enforcement 24hr Mental Health Eval By: Dr. Amarjit Sol Date Patient Detained: December 14, 2017 Time Patient Detained: 18:02 Date Skilled Nursing Expires: Dec 19, 2017 Time Skilled Nursing Expires: 18:02 Legal Status: Police Hold: Yes Legal Status: Relationship: Single Legal Status: Residence: [facility] Resident, State Resident Referral Source: Professional: Law Enforcement and ER physician Assessment Data Provided By: Patient, Law Enforcement, Other Source Chief Complaint: Patient, Alphonse Del Angel, is a well known 47-year-old male who presented under an emergency detainment, escorted by police from a local [facility], where patient had been recently arrested for a DUI. Patient was proclaiming depression, engaging in self harm, banging his head in the [facility] apparently, patient asking police to shoot him. This same behavioral presentation has been observed historically when patient is under the influence of alcohol and cannabis. Patient notably positive for amphetamines at this presentation as well. Patient required sedating medications sedating in the ER. He was reluctant to speak about the events leading up to this hospitalization at first. HPI/ROS: Per Dr. Дмитрий De Jesus, "The patient has been inpatient here at [facility] on multiple occasions. Most recently patient was transferred to the [facility] from his most recent admission here. Patient then discharged back into [facility], where he had been staying at the [facility] and following up there. Patient has a longstanding history of mood decompensation when under the influence of substances, and patient has a longstanding history of relatively quick stabilization in the absence of illicit substance and/or alcohol use. Patient has had multiple parasuicidal attempts throughout his life and suicidal ideation in general. " Diagnosis: Alcohol use disorder, severe. Alcohol intoxification. Alcohol withdrawal. Cannabis use disorder, severe. Cannabis intoxication. Rule out stimulant use disorder, methamphetamine. 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 Hypothyroidism. History of schizoaffective disorder, bipolar type. Ongoing limited ability to function independently. Risk Formulation: The patient "evidences behavior manifested by recent acts or omissions that, due to mental illness, the patient is unable to satisfy basic needs for nourishment, essential medical care, skilled nursing, or safety so that a substantial probability exists that , serious physical injury, serious physical debilitation, serious mental debilitation, destabilization from lack of or refusal to take prescribed psychotropic medications for a diagnosed condition or serious physical disease will imminently ensue, unless the individual receives prompt and adequate treatment for this mental illness" and The patient "evidences a substantial probability of physical harm to self as manifested by evidence of recent threats of/or attempts at suicide or serious bodily harm" as evidenced by: Current risk is severe, based on patient unable to maintain sobriety and feeling suicidal every time he binge drinks. He has current and historic impulsive plans to end his life by banging his head at the [facility] and saying he wanted officers to shoot him, (historically - overdosing or walking out in front of traffic). He acknowledges he is unable to maintain sobriety on his own. He reports being unable to feel stable and wants help. In his current state of decompensation, patient received two DUIs fairly close together. He is not able to care for himself reliably at this time. Although patient has an apartment in [facility] housing, and was working two jobs, he acknowledges he was taking on too much and says, "I just snapped and the drinking started again." Previous detentions/hospitalizations involved patient coming to the attention of Law Enforcement because on one occasion he drank and took too much of his medicine in an attempt to kill himself, and on another recent hospitalization, he reported he wanted to end his life by walking in traffic on [address]. He further elaborated that he had been hearing voices telling him to commit suicide , had been drinking, and had not been taking mood stabilizing medications anymore. Risk of further decompensation is high for patient, and as demonstrated , could easily be lethal. Most concerning on this occasion are patient's two DUI's very close to each other. This is an escalated danger for the patient and also for public safety. Recommendations of S Team: That the patient's initial nursing home be upheld and extended for up to ten (10) days to allow for further evaluation, monitoring, and stabilization. [facility] will follow patient during admission and after discharge. Patient should be directed to follow up with [facility] after discharge from [facility] for ongoing case management. Patient is currently assessed as unstable. Reliability of Pt-Evidenced By Patient verbally acknowledges the intensity of his mood, relapse with substances , and subsequent decompensation. Current Dangerous Risk Assess: Current Suicide Ideation, Self-Injurious Behaviors (Banging his head on wall at [facility].), Protective Factors (Patient has an apartment in supported housing at [facility] and is also engaged in therapy there.) Past Dangerous Risk Assess: Suicide Ideation-last 6mo (Patient last hospitalized in July of this year for suicidal ideation and behaviors.) S - Exam Physical Exam Vital Signs Vital Signs 12/17/17 11:10 Temp 99.1 Pulse 51 Resp 16 B/P (MAP) 112/60 (77) Pulse Ox 92 O2 Delivery Room Air Mental Status Exam General Appearance: Casual, Cooperative, Unkept, No Bizarre Mannerisms, No Tics Speech: Clear, Spontaneous, Normal Rate, Normal Rhythm, Normal Volume, Normal Tone Mood: Dysthmic/Depressed Affect: Withdrawn Thought Process: Organized, Logical, Goal Directed, No Loose Associations, No Flight of Ideas Thought Content: Suicidal Ideation, No Homicidal Ideation, No Delusions, No Auditory Halllucinations, No Visual Hallucinations, No Thought Broadcasting, No Ideas of Reference, No Obsessions, No Compulsions Sensorium: Clear Cognition: Alert & Oriented-Person, Alert & Oriented-Place, Alert & Oriented- Time, Kyfpd-[id number]-[id number] Memory: Immediate, Recent, Remote Intelligence: Below Average Insight Judgment: Poor Sleep: Insomnia, Hypersomnia Care & Behavior on Unit Treatment Team Participation: Patient responding to therapeutic setting slowly. He was initially unwilling to talk with staff, and did not want to get out of bed on the weekend to speak with provider during morning rounds over weekend. Pt. Taking Meds Voluntarily: Yes Behavior on Unit: Patient is compliant with behavioral expectations on the S unit. Title 25 History Psychiatric History: Patient, Alphonse Del Angel, has been an inpatient multiple times here at the Behavioral Health unit. The patient is believed to have been at the [facility] in [place] on at least two occasions in his history. He has had multiple parasuicidal attempts throughout his life and suicidal ideation especially connected to binge drinking. He has deficits in self-management that are manager terminal, and some congenital. He is unable to maintain a regimen of self- care which includes taking his medication, without assistance. Family Psychiatric Hx: No known psychiatric illness except for substance abuse and alcohol abuse in the mother, with possible in-utero transmission of alcohol and drug abuse. Social History: The patient was born to a substance-using, alcohol-abusing mother, which likely resulted in the patient's current deficits according to some reports. At age [age], patient was adopted into an intact family. He was institutionalized at age 15 for aggressive behavior, and after that was placed in foster care. The patient graduated high school, was working in [place] in the past, had many different jobs. Patient was noted in the remote past noted to be working long- term at [employer]. Patient is on disability, currently living in [facility] [address] in [facility]. Patient was working at [employer] and [employer] as well. He reports this was becoming very overwhelming for him, and he had initially believed both jobs would be a good idea for him because he wanted to have a car for transportation, but now believes two jobs to support a car, may be too much for his well-being. Prior Hospitalizations: Mar 14, 2008 Apr 26, 2008 September 20, 2008 Sep 05, 2009 December 07, 2009 May 31, 2017 Jul 10, 2017 Aug 07, 2017 It is believed that patient lived in the [facility] between the latter part of 2009 until this year when he returned to [place]. Patient reports additional hospitalizations during that time at the [facility]. Drug & Alcohol Use: Patient currently using alcohol and cannabis again. Patient's amphetamine screen notably positive as well. He has abused epinephrine [id number] in the past, as well as LSD. In remote past, patient was known to be a binge drinker on the weekends while working at [employer] [facility] [employer] for many years, but eventually alcohol dependence did get to the point where patient's job was terminated. Current Support System: Patient has a good friend "Tank" who lives in town and talks with patient about needing to be sober. Legal Concerns: Patient has stated previously that he owes payments to municipal court. His current payment status is unknown at this time. Patient Strengths: Patient is congenial, sincere, and enjoys others' company and support. Current Medical Data: Patient requires medicine for a chronic physical problem. Patient's lab work across several hospitalizations indicates a significantly elevated TSH. The patient is known not to take medications as prescribed, including his Synthroid , which was most recently prescribed at 100 mcg a day. Relevant Medications: Trazodone and Synthroid (for physical malady). PATITO EWING TREATING INSPECTOR Dec 17, 2017 18:13
[2017-12-17] MEDS: traZODone HCL 50 MG TAB PO SCH (21:07)
[2017-12-18 01:51] VITALS: BP 108/72
[2017-12-18] MEDS: LEVOTHYROXINE SOD 0.1 MG TAB PO SCH (06:00)
[2017-12-18] MEDS: MULTIVITAMINS TAB PO SCH (07:55)
[2017-12-18] MEDS: FOLIC ACID 1 MG TAB PO SCH (07:55)
[2017-12-18] MEDS: THIAMINE HCL 100 MG TAB PO SCH (07:55)
[2017-12-18] MEDS ORDERED: IBUPROFEN 600 MG TAB PO PRN (08:10)
--- NOTE | 2017-12-18 09:23 | BHS Progress Note ---
BHS - Subjective Progress Notes Subjective Patient cooperative over the weekend, some isolation, appetite improving. No evidence of psychosis. Patient expressing anger aimed at himself. States he chooses on a whim to relapse into drugs and alcohol. Patient denies use of known amphetamines, admits to the alcohol consumption and use of cannabis which historically quickly causes mood destabilization. Suicidal Ideation: Resolving Homicidal Ideation: None BHS - Objective Physical Exam Vital Signs Vital Signs Date Time Temp Pulse Resp B/P (MAP) Pulse Ox O2 Delivery O2 Flow Rate FiO2 12/18/17 01:51 98.1 55 108/72 (84) 93 Room Air 12/17/17 11:10 16 Hematology Test 12/15/17 11:05 Urine Color Yellow Urine Clarity Clear Urine pH 5.0 pH (4.8-9.5) Urine Specific [place] 1.016 Urine Protein Negative mg/dL (NEGATIVE) Urine Glucose (UA) Negative mg/dL (NEGATIVE) Urine Ketones Trace mg/dL (NEGATIVE) Urine Blood Negative (NEGATIVE) Urine Nitrite Negative (NEGATIVE) Urine Bilirubin Negative (NEGATIVE) Urine Urobilinogen 4.0 mg/dL (0.2-1.9) Urine Leukocyte Esterase Negative (NEGATIVE) Urine RBC 1 /HPF (0-2/HPF) Urine WBC 2 /HPF (0-5/HPF) Urine Squamous Epithelial Cells Few /LPF (</=FEW) Urine Bacteria Negative /HPF (NONE-FEW) Urine Mucus Few /HPF (NONE-FEW) Urine Opiates Screen Negative Urine Barbiturates Screen Negative Ur Tricyclic Antidepressants Screen Negative Urine Phencyclidine Screen Negative Urine Amphetamines Screen Positive Urine Benzodiazepines Screen Positive Urine Cocaine Screen Negative Urine Cannabinoids Screen Positive Chemistry Test 12/15/17 11:05 Urine Color Yellow Urine Clarity Clear Urine pH 5.0 pH (4.8-9.5) Urine Specific [place] 1.016 Urine Protein Negative mg/dL (NEGATIVE) Urine Glucose (UA) Negative mg/dL (NEGATIVE) Urine Ketones Trace mg/dL (NEGATIVE) Urine Blood Negative (NEGATIVE) Urine Nitrite Negative (NEGATIVE) Urine Bilirubin Negative (NEGATIVE) Urine Urobilinogen 4.0 mg/dL (0.2-1.9) Urine Leukocyte Esterase Negative (NEGATIVE) Urine RBC 1 /HPF (0-2/HPF) Urine WBC 2 /HPF (0-5/HPF) Urine Squamous Epithelial Cells Few /LPF (</=FEW) Urine Bacteria Negative /HPF (NONE-FEW) Urine Mucus Few /HPF (NONE-FEW) Urine Opiates Screen Negative Urine Barbiturates Screen Negative Ur Tricyclic Antidepressants Screen Negative Urine Phencyclidine Screen Negative Urine Amphetamines Screen Positive Urine Benzodiazepines Screen Positive Urine Cocaine Screen Negative Urine Cannabinoids Screen Positive Toxicology Test 12/15/17 11:05 Urine Opiates Screen Negative Urine Barbiturates Screen Negative Ur Tricyclic Antidepressants Screen Negative Urine Phencyclidine Screen Negative Urine Amphetamines Screen Positive Urine Benzodiazepines Screen Positive Urine Cocaine Screen Negative Urine Cannabinoids Screen Positive Urinalysis Test 12/15/17 11:05 Urine Color Yellow Urine Clarity Clear Urine pH 5.0 pH (4.8-9.5) Urine Specific [place] 1.016 Urine Protein Negative mg/dL (NEGATIVE) Urine Glucose (UA) Negative mg/dL (NEGATIVE) Urine Ketones Trace mg/dL (NEGATIVE) Urine Blood Negative (NEGATIVE) Urine Nitrite Negative (NEGATIVE) Urine Bilirubin Negative (NEGATIVE) Urine Urobilinogen 4.0 mg/dL (0.2-1.9) Urine Leukocyte Esterase Negative (NEGATIVE) Urine RBC 1 /HPF (0-2/HPF) Urine WBC 2 /HPF (0-5/HPF) Urine Squamous Epithelial Cells Few /LPF (</=FEW) Urine Bacteria Negative /HPF (NONE-FEW) Urine Mucus Few /HPF (NONE-FEW) Muscle Strength and Tone: WNL Gait and Station: Steady [facility] Medications Reviewed: Side Effects, Benefits of Medication, Risks Allergies Reviewed: Yes Mental Status Exam General Appearance: Casual, Good Eye Contact (improved), Cooperative, Polite, Good Interaction, Unkept, No Tearful, No Psychomotor Agitation, Psychomotor Retardation, No Bizarre Mannerisms, No Tics Speech: Clear, Spontaneous, Normal Rate, Normal Rhythm, Normal Volume, Normal Tone Mood: Dysthmic/Depressed (impproving) Affect: Calm, Withdrawn, No Anxious, No Agitated Thought Process: Organized, Logical, Goal Directed, No Loose Associations, No Flight of Ideas Thought Content: Suicidal Ideation, No Homicidal Ideation, No Delusions, No Auditory Halllucinations, No Visual Hallucinations, No Thought Broadcasting, No Ideas of Reference, No Obsessions, No Compulsions Sensorium: Clear Cognition: Alert & Oriented-Person, Alert & Oriented-Place, Alert & Oriented- Time, Skfkx-Gjiiykuq-Ggpjqkqci Memory: Immediate, Recent, Remote Intelligence: Below Average Insight Judgment: Poor (limited by use of alcohol, substances, poor decision making. ) [facility] Assessment and Plan [id number] Encounter Date: Dec 18, 2017 [id number] Encounter Time: 09:00 [facility] Plan: Admit to Unit, Necessary Precautions, Individual/Group Therapy, Admin /Titrate Meds, Educate Patient Tobacco Medications: Not Appropriate Condition Multpiple Antipsychotics Used: No Problems: (1) Alcohol-induced mood disorder with depressive symptoms Optional Permanent Comment: significant dysphoria follows alcohol intoxication in this patient. Last Edited By: Lebron Menendez on Aug 09, 2017 10 :47 Status: Acute (2) Cannabis use disorder, severe, in controlled environment Status: Chronic (3) Alcohol dependence Status: Chronic (4) Hypothyroidism Status: Chronic Condition 1. continue treatment. 2. hearing for outpatient commitment scheduled. 3. consider Antabuse as a possible aid with abstinence LEBRON MENENDEZ MD Dec 18, 2017 09:23
[2017-12-18 13:12] VITALS: BP 134/87
[2017-12-18 18:04] VITALS: BP 120/90
[2017-12-18] MEDS: traZODone HCL 50 MG TAB PO SCH (20:42)
[2017-12-19 04:50] VITALS: BP 108/62
[2017-12-19] MEDS: LEVOTHYROXINE SOD 0.1 MG TAB PO SCH (05:16)
[2017-12-19] MEDS: FOLIC ACID 1 MG TAB PO SCH (08:28)
[2017-12-19] MEDS: MULTIVITAMINS TAB PO SCH (08:28)
[2017-12-19] MEDS: THIAMINE HCL 100 MG TAB PO SCH (08:28)
--- NOTE | 2017-12-19 09:32 | BHS Progress Note ---
BHS - Subjective Progress Notes Subjective Patient cooperative on the unit with this staff member and others. Continues to await hearing that would be aimed at establishing an outpatient commitment for this patient. Appetite and sleep intact, mood frustrated but no evidence of homicidal or suicidal ideation on the unit, which patient denies. No other concerns. Suicidal Ideation: None Homicidal Ideation: None S - Objective Physical Exam Vital Signs Hematology Test 12/15/17 11:05 Urine Color Yellow Urine Clarity Clear Urine pH 5.0 pH (4.8-9.5) Urine Specific [place] 1.016 Urine Protein Negative mg/dL (NEGATIVE) Urine Glucose (UA) Negative mg/dL (NEGATIVE) Urine Ketones Trace mg/dL (NEGATIVE) Urine Blood Negative (NEGATIVE) Urine Nitrite Negative (NEGATIVE) Urine Bilirubin Negative (NEGATIVE) Urine Urobilinogen 4.0 mg/dL (0.2-1.9) Urine Leukocyte Esterase Negative (NEGATIVE) Urine RBC 1 /HPF (0-2/HPF) Urine WBC 2 /HPF (0-5/HPF) Urine Squamous Epithelial Cells Few /LPF (</=FEW) Urine Bacteria Negative /HPF (NONE-FEW) Urine Mucus Few /HPF (NONE-FEW) Urine Opiates Screen Negative Urine Barbiturates Screen Negative Ur Tricyclic Antidepressants Screen Negative Urine Phencyclidine Screen Negative Urine Amphetamines Screen Positive Urine Benzodiazepines Screen Positive Urine Cocaine Screen Negative Urine Cannabinoids Screen Positive Chemistry Test 12/15/17 11:05 Urine Color Yellow Urine Clarity Clear Urine pH 5.0 pH (4.8-9.5) Urine Specific [place] 1.016 Urine Protein Negative mg/dL (NEGATIVE) Urine Glucose (UA) Negative mg/dL (NEGATIVE) Urine Ketones Trace mg/dL (NEGATIVE) Urine Blood Negative (NEGATIVE) Urine Nitrite Negative (NEGATIVE) Urine Bilirubin Negative (NEGATIVE) Urine Urobilinogen 4.0 mg/dL (0.2-1.9) Urine Leukocyte Esterase Negative (NEGATIVE) Urine RBC 1 /HPF (0-2/HPF) Urine WBC 2 /HPF (0-5/HPF) Urine Squamous Epithelial Cells Few /LPF (</=FEW) Urine Bacteria Negative /HPF (NONE-FEW) Urine Mucus Few /HPF (NONE-FEW) Urine Opiates Screen Negative Urine Barbiturates Screen Negative Ur Tricyclic Antidepressants Screen Negative Urine Phencyclidine Screen Negative Urine Amphetamines Screen Positive Urine Benzodiazepines Screen Positive Urine Cocaine Screen Negative Urine Cannabinoids Screen Positive Toxicology Test 12/15/17 11:05 Urine Opiates Screen Negative Urine Barbiturates Screen Negative Ur Tricyclic Antidepressants Screen Negative Urine Phencyclidine Screen Negative Urine Amphetamines Screen Positive Urine Benzodiazepines Screen Positive Urine Cocaine Screen Negative Urine Cannabinoids Screen Positive Urinalysis Test 12/15/17 11:05 Urine Color Yellow Urine Clarity Clear Urine pH 5.0 pH (4.8-9.5) Urine Specific [place] 1.016 Urine Protein Negative mg/dL (NEGATIVE) Urine Glucose (UA) Negative mg/dL (NEGATIVE) Urine Ketones Trace mg/dL (NEGATIVE) Urine Blood Negative (NEGATIVE) Urine Nitrite Negative (NEGATIVE) Urine Bilirubin Negative (NEGATIVE) Urine Urobilinogen 4.0 mg/dL (0.2-1.9) Urine Leukocyte Esterase Negative (NEGATIVE) Urine RBC 1 /HPF (0-2/HPF) Urine WBC 2 /HPF (0-5/HPF) Urine Squamous Epithelial Cells Few /LPF (</=FEW) Urine Bacteria Negative /HPF (NONE-FEW) Urine Mucus Few /HPF (NONE-FEW) Vital Signs Date Time Temp Pulse Resp B/P (MAP) Pulse Ox O2 Delivery O2 Flow Rate FiO2 12/19/17 04:50 97.5 45 108/62 (77) 92 Room Air 12/17/17 11:10 16 Muscle Strength and Tone: WNL Gait and Station: Steady [facility] Medications Reviewed: Side Effects, Benefits of Medication, Risks Allergies Reviewed: Yes Mental Status Exam General Appearance: Casual, Good Eye Contact (improved), Cooperative, Polite, Good Interaction, Unkept, No Tearful, No Psychomotor Agitation, Psychomotor Retardation, No Bizarre Mannerisms, No Tics Speech: Clear, Spontaneous, Normal Rate, Normal Rhythm (baseline), Normal Volume, Normal Tone Mood: Dysthmic/Depressed (impproving, frustrated) Affect: Calm, Neutral, No Anxious, No Agitated Thought Process: Organized, Logical, Goal Directed, No Loose Associations, No Flight of Ideas Thought Content: Suicidal Ideation, No Homicidal Ideation, No Delusions, No Auditory Halllucinations, No Visual Hallucinations, No Thought Broadcasting, No Ideas of Reference, No Obsessions, No Compulsions Sensorium: Clear Cognition: Alert & Oriented-Person, Alert & Oriented-Place, Alert & Oriented- Time, Yztmq-Sloubucv-Azraknfhj Memory: Immediate, Recent, Remote Intelligence: Below Average Insight Judgment: Poor (limited by use of alcohol, substances, poor decision making. ) [facility] Assessment and Plan [id number] Encounter Date: Dec 19, 2017 [id number] Encounter Time: 09:00 [facility] Plan: Admit to Unit, Necessary Precautions, Individual/Group Therapy, Admin /Titrate Meds, Educate Patient Tobacco Medications: Not Appropriate Condition Multpiple Antipsychotics Used: No Problems: (1) Alcohol-induced mood disorder with depressive symptoms Optional Permanent Comment: significant dysphoria follows alcohol intoxication in this patient. Last Edited By: Lebron Menendez on Aug 09, 2017 10 :47 Status: Acute (2) Cannabis use disorder, severe, in controlled environment Status: Chronic (3) Alcohol dependence Status: Chronic (4) Hypothyroidism Status: Chronic Condition 1. continue treatment. 2. await establishment of outpatient commitment. LEBRON MENENDEZ MD Dec 19, 2017 09:32
[2017-12-19 14:41] VITALS: BP 113/73
[2017-12-19 18:18] VITALS: BP 132/75
[2017-12-19] MEDS: traZODone HCL 50 MG TAB PO SCH (20:25)
[2017-12-20 05:20] VITALS: BP 103/64
[2017-12-20] MEDS: LEVOTHYROXINE SOD 0.1 MG TAB PO SCH (05:21)
[2017-12-20] MEDS: FOLIC ACID 1 MG TAB PO SCH (08:02)
[2017-12-20] MEDS: THIAMINE HCL 100 MG TAB PO SCH (08:03)
[2017-12-20] MEDS: MULTIVITAMINS TAB PO SCH (08:03)
--- NOTE | 2017-12-20 09:43 | BHS Progress Note ---
BHS - Subjective Progress Notes Subjective Patient is cooperative on the unit again today, and denies any psychiatric concerns. Appetite and sleep good, mood frustrated, but improved, will await hearing, patient remains on police hold. Suicidal Ideation: None Homicidal Ideation: None BHS - Objective Physical Exam Vital Signs Vital Signs Date Time Temp Pulse Resp B/P (MAP) Pulse Ox O2 Delivery O2 Flow Rate FiO2 12/20/17 05:20 98.0 49 15 103/64 (77) 93 Room Air Hematology Test 12/15/17 11:05 Urine Color Yellow Urine Clarity Clear Urine pH 5.0 pH (4.8-9.5) Urine Specific [place] 1.016 Urine Protein Negative mg/dL (NEGATIVE) Urine Glucose (UA) Negative mg/dL (NEGATIVE) Urine Ketones Trace mg/dL (NEGATIVE) Urine Blood Negative (NEGATIVE) Urine Nitrite Negative (NEGATIVE) Urine Bilirubin Negative (NEGATIVE) Urine Urobilinogen 4.0 mg/dL (0.2-1.9) Urine Leukocyte Esterase Negative (NEGATIVE) Urine RBC 1 /HPF (0-2/HPF) Urine WBC 2 /HPF (0-5/HPF) Urine Squamous Epithelial Cells Few /LPF (</=FEW) Urine Bacteria Negative /HPF (NONE-FEW) Urine Mucus Few /HPF (NONE-FEW) Urine Opiates Screen Negative Urine Barbiturates Screen Negative Ur Tricyclic Antidepressants Screen Negative Urine Phencyclidine Screen Negative Urine Amphetamines Screen Positive Urine Benzodiazepines Screen Positive Urine Cocaine Screen Negative Urine Cannabinoids Screen Positive Chemistry Test 12/15/17 11:05 Urine Color Yellow Urine Clarity Clear Urine pH 5.0 pH (4.8-9.5) Urine Specific [place] 1.016 Urine Protein Negative mg/dL (NEGATIVE) Urine Glucose (UA) Negative mg/dL (NEGATIVE) Urine Ketones Trace mg/dL (NEGATIVE) Urine Blood Negative (NEGATIVE) Urine Nitrite Negative (NEGATIVE) Urine Bilirubin Negative (NEGATIVE) Urine Urobilinogen 4.0 mg/dL (0.2-1.9) Urine Leukocyte Esterase Negative (NEGATIVE) Urine RBC 1 /HPF (0-2/HPF) Urine WBC 2 /HPF (0-5/HPF) Urine Squamous Epithelial Cells Few /LPF (</=FEW) Urine Bacteria Negative /HPF (NONE-FEW) Urine Mucus Few /HPF (NONE-FEW) Urine Opiates Screen Negative Urine Barbiturates Screen Negative Ur Tricyclic Antidepressants Screen Negative Urine Phencyclidine Screen Negative Urine Amphetamines Screen Positive Urine Benzodiazepines Screen Positive Urine Cocaine Screen Negative Urine Cannabinoids Screen Positive Toxicology Test 12/15/17 11:05 Urine Opiates Screen Negative Urine Barbiturates Screen Negative Ur Tricyclic Antidepressants Screen Negative Urine Phencyclidine Screen Negative Urine Amphetamines Screen Positive Urine Benzodiazepines Screen Positive Urine Cocaine Screen Negative Urine Cannabinoids Screen Positive Urinalysis Test 12/15/17 11:05 Urine Color Yellow Urine Clarity Clear Urine pH 5.0 pH (4.8-9.5) Urine Specific [place] 1.016 Urine Protein Negative mg/dL (NEGATIVE) Urine Glucose (UA) Negative mg/dL (NEGATIVE) Urine Ketones Trace mg/dL (NEGATIVE) Urine Blood Negative (NEGATIVE) Urine Nitrite Negative (NEGATIVE) Urine Bilirubin Negative (NEGATIVE) Urine Urobilinogen 4.0 mg/dL (0.2-1.9) Urine Leukocyte Esterase Negative (NEGATIVE) Urine RBC 1 /HPF (0-2/HPF) Urine WBC 2 /HPF (0-5/HPF) Urine Squamous Epithelial Cells Few /LPF (</=FEW) Urine Bacteria Negative /HPF (NONE-FEW) Urine Mucus Few /HPF (NONE-FEW) Muscle Strength and Tone: WNL Gait and Station: Steady [facility] Medications Reviewed: Side Effects, Benefits of Medication, Risks Allergies Reviewed: Yes Mental Status Exam General Appearance: Casual, Good Eye Contact (improved), Cooperative, Polite, Good Interaction, Unkept, No Tearful, No Psychomotor Agitation, Psychomotor Retardation, No Bizarre Mannerisms, No Tics Speech: Clear, Spontaneous, Normal Rate, Normal Rhythm (baseline), Normal Volume, Normal Tone Mood: Dysthmic/Depressed (impproving, frustrated) Affect: Calm, Neutral, No Anxious, No Agitated Thought Process: Organized, Logical, Goal Directed, No Loose Associations, No Flight of Ideas Thought Content: Suicidal Ideation, No Homicidal Ideation, No Delusions, No Auditory Halllucinations, No Visual Hallucinations, No Thought Broadcasting, No Ideas of Reference, No Obsessions, No Compulsions Sensorium: Clear Cognition: Alert & Oriented-Person, Alert & Oriented-Place, Alert & Oriented- Time, [id number]-[id number] Memory: Immediate, Recent, Remote Intelligence: Below Average Insight Judgment: Poor (limited by use of alcohol, substances, poor decision making. ) BHS Assessment and Plan [id number] Encounter Date: Dec 20, 2017 [id number] Encounter Time: 09:00 BHS Plan: Admit to Unit, Necessary Precautions, Individual/Group Therapy, Admin /Titrate Meds, Educate Patient Tobacco Medications: Not Appropriate Condition Multpiple Antipsychotics Used: No Problems: (1) Alcohol-induced mood disorder with depressive symptoms Optional Permanent Comment: significant dysphoria follows alcohol intoxication in this patient. Last Edited By: Lebron Menednez on Aug 09, 2017 10 :47 Status: Acute (2) Cannabis use disorder, severe, in controlled environment Status: Chronic (3) Alcohol dependence Status: Chronic (4) Hypothyroidism Status: Chronic Condition Vital Signs Date Time Temp Pulse Resp B/P (MAP) Pulse Ox O2 Delivery O2 Flow Rate FiO2 12/20/17 05:20 98.0 49 15 103/64 (77) 93 Room Air 1. continue treatment. 2. await hearing. LEBRON MENENDEZ MD Dec 20, 2017 09:43
[2017-12-20 14:40] VITALS: BP 127/84
[2017-12-20 19:28] VITALS: BP 116/78
[2017-12-20] MEDS: traZODone HCL 50 MG TAB PO SCH (20:25)
[2017-12-21] MEDS: LEVOTHYROXINE SOD 0.1 MG TAB PO SCH (06:00)
[2017-12-21 06:02] VITALS: BP 108/62
[2017-12-21] MEDS: THIAMINE HCL 100 MG TAB PO SCH (08:14)
[2017-12-21] MEDS: FOLIC ACID 1 MG TAB PO SCH (08:14)
[2017-12-21] MEDS: MULTIVITAMINS TAB PO SCH (08:14)
--- NOTE | 2017-12-21 08:42 | BHS Progress Note ---
BHS - Subjective Progress Notes Subjective Patient cooperative on the unit, denies any problems, states he is still frustrated with himself for getting in trouble and says he continues to drink because "I am an alcoholic". Sleep and appetite good, denies any other concerns. Will continue to await court hearing, to employ outpatient commitment. sleep and appetite good. Suicidal Ideation: None Homicidal Ideation: None [facility] - Objective Physical Exam Vital Signs Vital Signs Date Time Temp Pulse Resp B/P (MAP) Pulse Ox O2 Delivery O2 Flow Rate FiO2 12/21/17 06:02 98.4 47 15 108/62 (77) 93 Room Air Hematology Test 12/15/17 11:05 Urine Color Yellow Urine Clarity Clear Urine pH 5.0 pH (4.8-9.5) Urine Specific [place] 1.016 Urine Protein Negative mg/dL (NEGATIVE) Urine Glucose (UA) Negative mg/dL (NEGATIVE) Urine Ketones Trace mg/dL (NEGATIVE) Urine Blood Negative (NEGATIVE) Urine Nitrite Negative (NEGATIVE) Urine Bilirubin Negative (NEGATIVE) Urine Urobilinogen 4.0 mg/dL (0.2-1.9) Urine Leukocyte Esterase Negative (NEGATIVE) Urine RBC 1 /HPF (0-2/HPF) Urine WBC 2 /HPF (0-5/HPF) Urine Squamous Epithelial Cells Few /LPF (</=FEW) Urine Bacteria Negative /HPF (NONE-FEW) Urine Mucus Few /HPF (NONE-FEW) Urine Opiates Screen Negative Urine Barbiturates Screen Negative Ur Tricyclic Antidepressants Screen Negative Urine Phencyclidine Screen Negative Urine Amphetamines Screen Positive Urine Benzodiazepines Screen Positive Urine Cocaine Screen Negative Urine Cannabinoids Screen Positive Chemistry Test 12/15/17 11:05 Urine Color Yellow Urine Clarity Clear Urine pH 5.0 pH (4.8-9.5) Urine Specific [place] 1.016 Urine Protein Negative mg/dL (NEGATIVE) Urine Glucose (UA) Negative mg/dL (NEGATIVE) Urine Ketones Trace mg/dL (NEGATIVE) Urine Blood Negative (NEGATIVE) Urine Nitrite Negative (NEGATIVE) Urine Bilirubin Negative (NEGATIVE) Urine Urobilinogen 4.0 mg/dL (0.2-1.9) Urine Leukocyte Esterase Negative (NEGATIVE) Urine RBC 1 /HPF (0-2/HPF) Urine WBC 2 /HPF (0-5/HPF) Urine Squamous Epithelial Cells Few /LPF (</=FEW) Urine Bacteria Negative /HPF (NONE-FEW) Urine Mucus Few /HPF (NONE-FEW) Urine Opiates Screen Negative Urine Barbiturates Screen Negative Ur Tricyclic Antidepressants Screen Negative Urine Phencyclidine Screen Negative Urine Amphetamines Screen Positive Urine Benzodiazepines Screen Positive Urine Cocaine Screen Negative Urine Cannabinoids Screen Positive Toxicology Test 12/15/17 11:05 Urine Opiates Screen Negative Urine Barbiturates Screen Negative Ur Tricyclic Antidepressants Screen Negative Urine Phencyclidine Screen Negative Urine Amphetamines Screen Positive Urine Benzodiazepines Screen Positive Urine Cocaine Screen Negative Urine Cannabinoids Screen Positive Urinalysis Test 12/15/17 11:05 Urine Color Yellow Urine Clarity Clear Urine pH 5.0 pH (4.8-9.5) Urine Specific [place] 1.016 Urine Protein Negative mg/dL (NEGATIVE) Urine Glucose (UA) Negative mg/dL (NEGATIVE) Urine Ketones Trace mg/dL (NEGATIVE) Urine Blood Negative (NEGATIVE) Urine Nitrite Negative (NEGATIVE) Urine Bilirubin Negative (NEGATIVE) Urine Urobilinogen 4.0 mg/dL (0.2-1.9) Urine Leukocyte Esterase Negative (NEGATIVE) Urine RBC 1 /HPF (0-2/HPF) Urine WBC 2 /HPF (0-5/HPF) Urine Squamous Epithelial Cells Few /LPF (</=FEW) Urine Bacteria Negative /HPF (NONE-FEW) Urine Mucus Few /HPF (NONE-FEW) Muscle Strength and Tone: WNL Gait and Station: Steady [facility] Medications Reviewed: Side Effects, Benefits of Medication, Risks Allergies Reviewed: Yes Mental Status Exam General Appearance: Casual, Good Eye Contact (improved), Cooperative, Polite, Good Interaction, Unkept, No Tearful, No Psychomotor Agitation, No Psychomotor Retardation, No Bizarre Mannerisms, No Tics Speech: Clear, Spontaneous, Normal Rate, Normal Rhythm (baseline), Normal Volume, Normal Tone Mood: Dysthmic/Depressed (improving, frustrated) Affect: Calm, Neutral, No Anxious, No Agitated Thought Process: Organized, Logical, Goal Directed, No Loose Associations, No Flight of Ideas Thought Content: Suicidal Ideation, No Homicidal Ideation, No Delusions, No Auditory Halllucinations, No Visual Hallucinations, No Thought Broadcasting, No Ideas of Reference, No Obsessions, No Compulsions Sensorium: Clear Cognition: Alert & Oriented-Person, Alert & Oriented-Place, Alert & Oriented- Time, Iejbk-Burtzjfo-Spzfaauwe Memory: Immediate, Recent, Remote Intelligence: Below Average Insight Judgment: Poor (limited by use of alcohol, substances, poor decision making. ) [facility] Assessment and Plan [id number] Encounter Date: Dec 21, 2017 [id number] Encounter Time: 08:30 [facility] Plan: Admit to Unit, Necessary Precautions, Individual/Group Therapy, Admin /Titrate Meds, Educate Patient Tobacco Medications: Not Appropriate Condition Multpiple Antipsychotics Used: No Problems: (1) Alcohol-induced mood disorder with depressive symptoms Optional Permanent Comment: significant dysphoria follows alcohol intoxication in this patient. Last Edited By: Lebron Menendez on Aug 09, 2017 10 :47 Status: Acute (2) Cannabis use disorder, severe, in controlled environment Status: Chronic (3) Alcohol dependence Status: Chronic (4) Hypothyroidism Status: Chronic Condition 1. no medication changes. 2. await hearing, or outpatient commitment to be in place. LEBRON MENENDEZ MD Dec 21, 2017 08:42
[2017-12-21 18:08] VITALS: BP 122/82
[2017-12-21] MEDS: traZODone HCL 50 MG TAB PO SCH (21:31)
[2017-12-22 05:57] VITALS: BP 102/74
[2017-12-22] MEDS: LEVOTHYROXINE SOD 0.1 MG TAB PO SCH (06:22)
[2017-12-22] MEDS: MULTIVITAMINS TAB PO SCH (08:25)
[2017-12-22] MEDS: FOLIC ACID 1 MG TAB PO SCH (08:25)
[2017-12-22] MEDS: THIAMINE HCL 100 MG TAB PO SCH (08:25)
--- NOTE | 2017-12-22 09:14 | BHS Progress Note ---
BHS - Subjective Progress Notes Subjective Patient remains cooperative overall on the unit. somewhat resistant to care, but limited in his ability to fully reason logically, and continue to stay with a plan he accepts. Patient reports he "does not want to go to group home". Denies any other concerns. Suicidal Ideation: None Homicidal Ideation: None [facility] - Objective Physical Exam Vital Signs Vital Signs Date Time Temp Pulse Resp B/P (MAP) Pulse Ox O2 Delivery O2 Flow Rate FiO2 12/22/17 05:57 98.1 44 102/74 (83) 90 Room Air 12/21/17 06:02 15 Hematology Test 12/15/17 11:05 Urine Color Yellow Urine Clarity Clear Urine pH 5.0 pH (4.8-9.5) Urine Specific [place] 1.016 Urine Protein Negative mg/dL (NEGATIVE) Urine Glucose (UA) Negative mg/dL (NEGATIVE) Urine Ketones Trace mg/dL (NEGATIVE) Urine Blood Negative (NEGATIVE) Urine Nitrite Negative (NEGATIVE) Urine Bilirubin Negative (NEGATIVE) Urine Urobilinogen 4.0 mg/dL (0.2-1.9) Urine Leukocyte Esterase Negative (NEGATIVE) Urine RBC 1 /HPF (0-2/HPF) Urine WBC 2 /HPF (0-5/HPF) Urine Squamous Epithelial Cells Few /LPF (</=FEW) Urine Bacteria Negative /HPF (NONE-FEW) Urine Mucus Few /HPF (NONE-FEW) Urine Opiates Screen Negative Urine Barbiturates Screen Negative Ur Tricyclic Antidepressants Screen Negative Urine Phencyclidine Screen Negative Urine Amphetamines Screen Positive Urine Benzodiazepines Screen Positive Urine Cocaine Screen Negative Urine Cannabinoids Screen Positive Chemistry Test 12/15/17 11:05 Urine Color Yellow Urine Clarity Clear Urine pH 5.0 pH (4.8-9.5) Urine Specific [place] 1.016 Urine Protein Negative mg/dL (NEGATIVE) Urine Glucose (UA) Negative mg/dL (NEGATIVE) Urine Ketones Trace mg/dL (NEGATIVE) Urine Blood Negative (NEGATIVE) Urine Nitrite Negative (NEGATIVE) Urine Bilirubin Negative (NEGATIVE) Urine Urobilinogen 4.0 mg/dL (0.2-1.9) Urine Leukocyte Esterase Negative (NEGATIVE) Urine RBC 1 /HPF (0-2/HPF) Urine WBC 2 /HPF (0-5/HPF) Urine Squamous Epithelial Cells Few /LPF (</=FEW) Urine Bacteria Negative /HPF (NONE-FEW) Urine Mucus Few /HPF (NONE-FEW) Urine Opiates Screen Negative Urine Barbiturates Screen Negative Ur Tricyclic Antidepressants Screen Negative Urine Phencyclidine Screen Negative Urine Amphetamines Screen Positive Urine Benzodiazepines Screen Positive Urine Cocaine Screen Negative Urine Cannabinoids Screen Positive Toxicology Test 12/15/17 11:05 Urine Opiates Screen Negative Urine Barbiturates Screen Negative Ur Tricyclic Antidepressants Screen Negative Urine Phencyclidine Screen Negative Urine Amphetamines Screen Positive Urine Benzodiazepines Screen Positive Urine Cocaine Screen Negative Urine Cannabinoids Screen Positive Urinalysis Test 12/15/17 11:05 Urine Color Yellow Urine Clarity Clear Urine pH 5.0 pH (4.8-9.5) Urine Specific [place] 1.016 Urine Protein Negative mg/dL (NEGATIVE) Urine Glucose (UA) Negative mg/dL (NEGATIVE) Urine Ketones Trace mg/dL (NEGATIVE) Urine Blood Negative (NEGATIVE) Urine Nitrite Negative (NEGATIVE) Urine Bilirubin Negative (NEGATIVE) Urine Urobilinogen 4.0 mg/dL (0.2-1.9) Urine Leukocyte Esterase Negative (NEGATIVE) Urine RBC 1 /HPF (0-2/HPF) Urine WBC 2 /HPF (0-5/HPF) Urine Squamous Epithelial Cells Few /LPF (</=FEW) Urine Bacteria Negative /HPF (NONE-FEW) Urine Mucus Few /HPF (NONE-FEW) Muscle Strength and Tone: WNL Gait and Station: Steady [facility] Medications Reviewed: Side Effects, Benefits of Medication, Risks Allergies Reviewed: Yes Mental Status Exam General Appearance: Casual, Good Eye Contact (improved), Cooperative, Polite, Good Interaction, Unkept, No Tearful, No Psychomotor Agitation, No Psychomotor Retardation, No Bizarre Mannerisms, No Tics Speech: Clear, Spontaneous, Normal Rate, Normal Rhythm (baseline), Normal Volume, Normal Tone Mood: Dysthmic/Depressed (improving, frustrated) Affect: Calm, Neutral, No Anxious, No Agitated Thought Process: Organized, Logical, Goal Directed, No Loose Associations, No Flight of Ideas Thought Content: Suicidal Ideation, No Homicidal Ideation, No Delusions, No Auditory Halllucinations, No Visual Hallucinations, No Thought Broadcasting, No Ideas of Reference, No Obsessions, No Compulsions Sensorium: Clear Cognition: Alert & Oriented-Person, Alert & Oriented-Place, Alert & Oriented- Time, Wwidb-Pgramxhm-Qwjvhswpi Memory: Immediate, Recent, Remote Intelligence: Below Average Insight Judgment: Poor (limited by use of alcohol, substances, poor decision making. ) [facility] Assessment and Plan Llmp-[id number] Encounter Date: Dec 22, 2017 [id number] Encounter Time: 09:00 [facility] Plan: Admit to Unit, Necessary Precautions, Individual/Group Therapy, Admin /Titrate Meds, Educate Patient Tobacco Medications: Not Appropriate Condition Multpiple Antipsychotics Used: No Problems: (1) Alcohol-induced mood disorder with depressive symptoms Optional Permanent Comment: significant dysphoria follows alcohol intoxication in this patient. Last Edited By: Lebron Menendez on Aug 09, 2017 10 :47 Status: Acute (2) Cannabis use disorder, severe, in controlled environment Status: Chronic (3) Alcohol dependence Status: Chronic (4) Hypothyroidism Status: Chronic Condition 1. patient to sign outpatient commitment when available. 2. no medication changes LEBRON MENENDEZ MD Dec 22, 2017 09:14
[2017-12-22 13:12] VITALS: BP 118/72
[2017-12-22] MEDS ORDERED: FOLI-68 PO (13:31)
[2017-12-22] MEDS ORDERED: MULT-1379 PO (13:32)
[2017-12-22] MEDS ORDERED: THIA100T62 PO (13:32)
[2017-12-22] MEDS ORDERED: LORazepam 1 MG TAB PO ONE (17:25)
[2017-12-22] MEDS ORDERED: LORazepam 1 MG TAB ONE (17:25)
--- NOTE | 2017-12-25 15:13 | DISCHARGE SUMMARY ---
DATE OF ADMISSION: December 14, 2017 DATE OF DISCHARGE: December 22, 2017 Patient was seen on morning of December 22, 2017, at approximately 1000 hours for note concerning this dictation. FINAL DIAGNOSES 1. Alcohol use disorder, severe. 2. Cannabis use disorder. 3. Substance-induced mood disorder. 4. Hypothyroidism. 5. Rule out stimulant use disorder, methamphetamine. 6. Legal stressors. 7. Stressors of illness. REASON FOR ADMISSION This is a very well-known, 47-year-old male who presented to the Emergency Room after first being taken to [facility] following what is believed to be a second DUI arrest within the month. Patient was intoxicated, was indicating parasuicidal behaviors and thoughts which are common in this patient when he is under the influence of alcohol and substances. Patient was brought back to the Emergency Room after verbalizing suicidal thoughts. Patient was admitted without incident. As also historically happens, patient quickly cleared from any outwardly depressed state as soon as alcohol intoxication resolved. Patient was not found to have any clinically relevant withdrawal from alcohol, which has been the case in the past as well. Patient then continued to be cooperative on the unit, not indicating any type of psychosis which has been a past diagnosis in this patient. At this time, hearing was held to place patient on an outpatient commitment, which patient agreed to. Patient was then later transferred to [facility] on a police hold for further evaluation of driving under the influence charges. Please see H and P for full details. PHYSICAL EXAMINATION GENERAL: Upon arrival in the Emergency Room, this was an intoxicated 47-year- old male. VITAL SIGNS: Temperature 98.3, pulse 76, respiratory rate 16, blood pressure 138/94, pulse oximetry 93 on room air at time of admission. At time of discharge to custody of police, vital signs were temperature 98.0, pulse 52, respiratory rate 16, blood pressure 118/72, and pulse oximetry 96 on room air. LABORATORY DATA At time of admission, CBC notable for RBCs elevated at 5.99. Hemoglobin and hematocrit elevated at 18.4 and 55.3 respectively. Chemistry panel notable for magnesium 1.5 and low, AST 48 and elevated. TSH 2.43. Serum alcohol level 181 upon admission. Toxicology screen positive for amphetamines, positive for benzodiazepines, and positive for cannabinoids. Urinalysis did show urine urobilinogen present. MENTAL STATUS EXAMINATION AT TIME OF DISCHARGE TO CUSTODY OF POLICE GENERAL APPEARANCE, BEHAVIOR, AND ATTITUDE: This is a calm, polite, 47-year- old male, making improved eye contact. No psychomotor agitation or retardation. No bizarre mannerisms or tics. SPEECH: Considered baseline. Impediment exists in this patient. MOOD: Described as frustrated, but okay. AFFECT: Briefly full at times, mood congruent overall. THOUGHT PROCESSES: Seem goal directed and logical. No loose associations or flight of ideas. THOUGHT CONTENT: Free of any auditory or visual hallucinations, ideas of reference, thought broadcasting, delusions, obsessions, compulsions. Patient adamantly denying suicidal or homicidal ideations. SENSORIUM: Clear. COGNITION: Alert and oriented to person, place, time, and mostly to situation. MEMORY: Immediate, recent, and remote estimated intact. INTELLIGENCE: Below average based on interview and previous knowledge of this patient. INSIGHT AND JUDGMENT: Considered limited by cognitive capacity and ongoing substance use. RESULTS OF TESTING IMAGING: None. LABORATORY DATA: See above. CONSULTATIONS None. TREATMENT Patient received medications, participated in individual and group therapy. HOSPITAL COURSE Patient quickly became compliant, cooperative on the unit, and depression lifted in the absence of alcohol intoxication and substance use. Patient was maintained on trazodone 50 mg at bedtime and Synthroid 0.1 mg daily. Folic acid and thiamine were given as well, as well as a multivitamin. Patient did participate in treatment to what is likely considered to be the best of his ability. CONDITION OF PATIENT ON DISCHARGE Stable, considered minimal risk to himself or others and appropriate for transport and continued evaluation in [facility] setting. DISPOSITION Patient discharged to the care of police. He would follow up with outpatient providers once discharged from [facility] and follow the outpatient commitment through [facility]. He agreed to abstain from alcohol and all illicit substances. DISCHARGE MEDICATIONS 1. Synthroid 100 mcg daily. 2. Hydroxyzine 50 mg p.r.n. for anxiety. Risks, benefits, and alternatives of above discharge plan were discussed. Informed consent was given to proceed with above discharge plan by this patient and police. BELEN
== END 2017-12-22 17:37 | DRG 897 ==
LOC: BHS 21:17
PROVIDERS: ADMIT Psychiatry & Neurology Psychiatry; ATTEND Psychiatry & Neurology Psychiatry
DX: F10.24 Alcohol dependence with alcohol-induced mood disorder (principal); R45.851 Suicidal ideations; F12.20 Cannabis dependence, uncomplicated; E03.9 Hypothyroidism, unspecified; F32.9 Major depressive disorder, single episode, unspecified; F15.90 Other stimulant use, unspecified, uncomplicated; R41.83 Borderline intellectual functioning; F25.0 Schizoaffective disorder, bipolar type; Z91.5 Personal history of self-harm; Z81.1 Family history of alcohol abuse and dependence; Z81.3 Family history of other psychoactive substance abuse and dependence
CPT/HCPCS: 36415; 80305; 80320; 80329; 81001; 82040; 82247; 82310; 82374; 82435; 82565; 82947; 83735; 84075; 84132; 84155; 84295; 84443; 84450; 84460; 84520; 85025; 96372; 99285; A4216; J1200; J2060; J3490

== ENCOUNTER 2018-01-01 11:43 | Emergency (ER) | payer MEDICARE, MEDICAID ==
[~2018-01-01 11:43] MED LIST changes: +FOLI-68 PO; +LEVO112T44 PO; +THIA100T62 PO; +TRAZ-156 PO
--- NOTE | 2018-01-01 11:48 | ER Report ---
History and Physical Time Seen By MD: 11:47 HPI/ROS CHIEF COMPLAINT: Alcohol abuse, alcohol withdrawal symptoms HISTORY OF PRESENT ILLNESS: Patient is a 47-year-old male with a known history of alcoholism here after a weekend "kulkarni". Patient reports feeling shaky, uncomfortable and wishing to be checked out. Patient reports that he does not wish to be admitted to behavioral health services at this time nor does he wish to detox. Patient denies suicidal or homicidal ideation however has had multiple admissions for suicidal thoughts. Today he reports that he would like to be checked out to make sure that "everything is okay". Patient was hemodynamically stable at time of evaluation and in no acute distress. Denies recent trauma, headache, blurred vision, chest pain, shortness breath, fevers or chills. REVIEW OF SYSTEMS: Constitutional: No fever, no chills. Eyes: No discharge. ENT: No sore throat. Cardiovascular: No chest pain, no palpitations. Respiratory: No cough, no shortness of breath. Gastrointestinal: No abdominal pain, no vomiting. Genitourinary: No hematuria. Musculoskeletal: No back pain. Skin: No rashes. Neurological: No headache. Allergies: Coded Allergies: No Known Allergies (Verified Allergy, Mild, 01/01/18) Home Meds Reported Medications Trazodone Hcl (TRAZODONE HCL) 50 Mg Tablet, 50-100 MG PO QHS 01/01/18 Levothyroxine Sodium (SYNTHROID) 112 Mcg Tablet, 100 MCG PO QDAY, TAB 12/15/17 Discontinued Reported Medications Thiamine Hcl (THIAMINE HCL) 100 Mg Tablet, 100 MG PO QDAY 12/22/17 Multivits,Th W-Fe,Other Min (THERA-M) 1 Each Tablet, 1 EACH PO QDAY 12/22/17 Folic Acid (FOLIC ACID) 1 Mg Tablet, 1 MG PO QDAY, TAB 12/22/17 Hx Smoking: Yes Smoking Status: Current: Every Day Smoker Exposure to Second Hand Smoke?: Yes Hx Substance Use Disorder: Yes Hx Alcohol Use: Yes Constitutional Vital Sign - Last 24 Hours 01/01/18 01/01/18 01/01/18 01/01/18 11:45 11:49 11:58 12:00 Temp 97.5 Pulse 82 75 Resp 16 B/P (MAP) 147/92 147/92 (110) 143/85 (104) Pulse Ox 92 91 O2 Delivery Room Air 01/01/18 01/01/18 01/01/18 01/01/18 12:05 12:20 12:30 12:35 Pulse 74 71 72 B/P (MAP) 131/77 (95) Pulse Ox 94 91 89 01/01/18 01/01/18 01/01/18 12:40 12:45 12:50 Pulse 81 86 74 Pulse Ox 91 92 89 Physical Exam General Appearance: The patient is alert, has no immediate need for airway protection and no signs of toxicity. No acute distress Eyes: Pupils equal and round no pallor or injection. ENT, Mouth: Mucous membranes are moist. Respiratory: There are no retractions, lungs are clear to auscultation. Cardiovascular: Regular rate and rhythm. Gastrointestinal: Abdomen is soft and non tender, no masses, bowel sounds normal. Neurological: No focal neurological deficits Skin: Warm and dry, no rashes. Musculoskeletal: Neck is supple non tender. Extremities are nontender, nonswollen and have full range of motion. DIFFERENTIAL DIAGNOSIS: After history and physical exam differential diagnosis was considered for alcohol withdrawal, multi-substance withdrawal, electrolyte abnormality, trauma. Medical Decision Making Data Points Result Diagram: 01/01/18 1215 01/01/18 1215 Laboratory Hematology Test 01/01/18 11:47 01/01/18 12:15 Urine Color Yellow Urine Clarity Slightly-cloudy Urine pH 5.0 pH (4.8-9.5) Urine Specific [place] 1.018 Urine Protein Negative mg/dL (NEGATIVE) Urine Glucose (UA) 50 mg/dL (NEGATIVE) Urine Ketones Negative mg/dL (NEGATIVE) Urine Blood Negative (NEGATIVE) Urine Nitrite Negative (NEGATIVE) Urine Bilirubin Negative (NEGATIVE) Urine Urobilinogen 4.0 mg/dL (0.2-1.9) Urine Leukocyte Esterase Negative (NEGATIVE) Urine RBC 1 /HPF (0-2/HPF) Urine WBC 1 /HPF (0-5/HPF) Urine Squamous Epithelial Cells None /LPF (</=FEW) Urine Bacteria Negative /HPF (NONE-FEW) Urine Mucus Few /HPF (NONE-FEW) Urine Opiates Screen Negative Urine Barbiturates Screen Negative Ur Tricyclic Antidepressants Screen Negative Urine Phencyclidine Screen Negative Urine Amphetamines Screen Negative Urine Benzodiazepines Screen Negative Urine Cocaine Screen Negative Urine Cannabinoids Screen Negative Red Blood Count 5.69 M/uL (4.00-5.60) Mean Corpuscular Volume 92.0 fL (80.0-96.0) Mean Corpuscular Hemoglobin 31.3 pg (26.0-33.0) Mean Corpuscular Hemoglobin Concent 34.0 g/dL (32.0-36.0) Red Cell Distribution Width 14.5 % (11.5-14.5) Mean Platelet Volume 7.9 fL (7.2-11.1) Neutrophils (%) (Auto) 70.2 % (39.4-72.5) Lymphocytes (%) (Auto) 21.5 % (17.6-49.6) Monocytes (%) (Auto) 7.3 % (4.1-12.4) Eosinophils (%) (Auto) 0.6 % (0.4-6.7) Basophils (%) (Auto) 0.4 % (0.3-1.4) Nucleated RBC Relative Count (auto) 0.0 /100WBC Neutrophils # (Auto) 4.4 K/uL (2.0-7.4) Lymphocytes # (Auto) 1.3 K/uL (1.3-3.6) Monocytes # (Auto) 0.5 K/uL (0.3-1.0) Eosinophils # (Auto) 0.0 K/uL (0.0-0.5) Basophils # (Auto) 0.0 K/uL (0.0-0.1) Nucleated RBC Absolute Count (auto) 0.00 K/uL Peripheral Blood Smear No Y/N Sodium Level 139 mmol/L (137-145) Potassium Level 3.7 mmol/L (3.5-5.0) Chloride Level 100 mmol/L (98-107) Carbon Dioxide Level 26 mmol/L (22-30) Blood Urea Nitrogen 6 mg/dl (9-21) Creatinine 0.80 mg/dl (0.66-1.25) Glomerular Filtration Rate Calc > 60.0 Random Glucose 77 mg/dl (75-110) Calcium Level 8.8 mg/dl (8.4-10.2) Magnesium Level 1.6 mg/dl (1.7-2.2) Total Bilirubin 0.5 mg/dl (0.2-1.3) Aspartate Amino Transf (AST/SGOT) 51 U/L (0-35) Alanine Aminotransferase (ALT/SGPT) 26 U/L (0-56) Alkaline Phosphatase 123 U/L (0-126) Total Protein 7.7 g/dl (6.3-8.2) Albumin 4.3 g/dl (3.5-5.0) Thyroid Stimulating Hormone (TSH) 5.08 uIU/ml (0.46-4.68) Salicylates Level < 10 mg/L Salicylate Last Dose Date unknown Acetaminophen Level < 10 ug/ml Serum Alcohol 80 mg/dl HIV (1&2) Antibody Negative (NEGATIVE) Chemistry Test 01/01/18 11:47 01/01/18 12:15 Urine Color Yellow Urine Clarity Slightly-cloudy Urine pH 5.0 pH (4.8-9.5) Urine Specific [place] 1.018 Urine Protein Negative mg/dL (NEGATIVE) Urine Glucose (UA) 50 mg/dL (NEGATIVE) Urine Ketones Negative mg/dL (NEGATIVE) Urine Blood Negative (NEGATIVE) Urine Nitrite Negative (NEGATIVE) Urine Bilirubin Negative (NEGATIVE) Urine Urobilinogen 4.0 mg/dL (0.2-1.9) Urine Leukocyte Esterase Negative (NEGATIVE) Urine RBC 1 /HPF (0-2/HPF) Urine WBC 1 /HPF (0-5/HPF) Urine Squamous Epithelial Cells None /LPF (</=FEW) Urine Bacteria Negative /HPF (NONE-FEW) Urine Mucus Few /HPF (NONE-FEW) Urine Opiates Screen Negative Urine Barbiturates Screen Negative Ur Tricyclic Antidepressants Screen Negative Urine Phencyclidine Screen Negative Urine Amphetamines Screen Negative Urine Benzodiazepines Screen Negative Urine Cocaine Screen Negative Urine Cannabinoids Screen Negative White Blood Count 6.2 k/uL (4.5-11.0) Red Blood Count 5.69 M/uL (4.00-5.60) Hemoglobin 17.8 g/dL (14.0-18.0) Hematocrit 52.4 % (42.0-52.0) Mean Corpuscular Volume 92.0 fL (80.0-96.0) Mean Corpuscular Hemoglobin 31.3 pg (26.0-33.0) Mean Corpuscular Hemoglobin Concent 34.0 g/dL (32.0-36.0) Red Cell Distribution Width 14.5 % (11.5-14.5) Platelet Count 288 K/uL (150-450) Mean Platelet Volume 7.9 fL (7.2-11.1) Neutrophils (%) (Auto) 70.2 % (39.4-72.5) Lymphocytes (%) (Auto) 21.5 % (17.6-49.6) Monocytes (%) (Auto) 7.3 % (4.1-12.4) Eosinophils (%) (Auto) 0.6 % (0.4-6.7) Basophils (%) (Auto) 0.4 % (0.3-1.4) Nucleated RBC Relative Count (auto) 0.0 /100WBC Neutrophils # (Auto) 4.4 K/uL (2.0-7.4) Lymphocytes # (Auto) 1.3 K/uL (1.3-3.6) Monocytes # (Auto) 0.5 K/uL (0.3-1.0) Eosinophils # (Auto) 0.0 K/uL (0.0-0.5) Basophils # (Auto) 0.0 K/uL (0.0-0.1) Nucleated RBC Absolute Count (auto) 0.00 K/uL Peripheral Blood Smear No Y/N Glomerular Filtration Rate Calc > 60.0 Calcium Level 8.8 mg/dl (8.4-10.2) Magnesium Level 1.6 mg/dl (1.7-2.2) Total Bilirubin 0.5 mg/dl (0.2-1.3) Aspartate Amino Transf (AST/SGOT) 51 U/L (0-35) Alanine Aminotransferase (ALT/SGPT) 26 U/L (0-56) Alkaline Phosphatase 123 U/L (0-126) Total Protein 7.7 g/dl (6.3-8.2) Albumin 4.3 g/dl (3.5-5.0) Thyroid Stimulating Hormone (TSH) 5.08 uIU/ml (0.46-4.68) Salicylates Level < 10 mg/L Salicylate Last Dose Date unknown Acetaminophen Level < 10 ug/ml Serum Alcohol 80 mg/dl HIV (1&2) Antibody Negative (NEGATIVE) Toxicology Test 01/01/18 11:47 01/01/18 12:15 Urine Opiates Screen Negative Urine Barbiturates Screen Negative Ur Tricyclic Antidepressants Screen Negative Urine Phencyclidine Screen Negative Urine Amphetamines Screen Negative Urine Benzodiazepines Screen Negative Urine Cocaine Screen Negative Urine Cannabinoids Screen Negative Salicylates Level < 10 mg/L Salicylate Last Dose Date unknown Acetaminophen Level < 10 ug/ml Serum Alcohol 80 mg/dl Urinalysis Test 01/01/18 11:47 Urine Color Yellow Urine Clarity Slightly-cloudy Urine pH 5.0 pH (4.8-9.5) Urine Specific [place] 1.018 Urine Protein Negative mg/dL (NEGATIVE) Urine Glucose (UA) 50 mg/dL (NEGATIVE) Urine Ketones Negative mg/dL (NEGATIVE) Urine Blood Negative (NEGATIVE) Urine Nitrite Negative (NEGATIVE) Urine Bilirubin Negative (NEGATIVE) Urine Urobilinogen 4.0 mg/dL (0.2-1.9) Urine Leukocyte Esterase Negative (NEGATIVE) Urine RBC 1 /HPF (0-2/HPF) Urine WBC 1 /HPF (0-5/HPF) Urine Squamous Epithelial Cells None /LPF (</=FEW) Urine Bacteria Negative /HPF (NONE-FEW) Urine Mucus Few /HPF (NONE-FEW) ED Course/Re-evaluation ED Course Patient is a 47-year-old male here with a lengthy history of alcoholism after a weekend "kulkarni". Patient reports that he came in today to the emergency department to make sure that he was "okay". He does not wish to pursue admission to behavioral health services today. Denies suicidal or homicidal ideation or plan. Labs were unremarkable. Patient was given thiamine and folic acid as well as fluids. Patient had a blood alcohol level of 80. He reports that he wishes to be discharged after initial workup in order to pursue a job. Patient was hemodynamically stable at time of discharge. I counseled the patient on alcohol cessation however the patient denied interest in stopping at this time. Decision to Disposition Date: Jan 01, 2018 Decision to Disposition Time: 12:51 Depart Departure Latest Vital Signs Vital Signs Date Time Temp Pulse Resp B/P (MAP) Pulse Ox O2 Delivery O2 Flow Rate FiO2 01/01/18 12:50 74 89 01/01/18 12:30 131/77 (95) 01/01/18 11:45 97.5 16 Room Air Impression: Primary Impression: Alcohol abuse Additional Impression: Alcohol withdrawal Condition: Improved Disposition: HOME OR SELF-CARE Patient Instructions: Abuse of Alcohol (ED), Alcohol Withdrawal (ED) Additional Instructions: Please consider stopping alcohol consumption as this has numerous negative effects on your body. Please return promptly if you start to develop hallucinations, headache, blurred vision, chest pain, shortness of breath, fevers, chills, nausea, vomiting, difficulty urinating. Problem Qualifiers WILLIAMS RINCON DO Jan 01, 2018 11:47
[2018-01-01] MEDS ORDERED: TRAZ-156 PO (11:50)
[2018-01-01] MEDS ORDERED: THIAMINE HCL 100 MG TAB PO ONE (11:55)
[2018-01-01] MEDS ORDERED: FOLIC ACID 1 MG TAB PO ONE (11:55)
[2018-01-01 12:21] LABS: PLATELET COUNT, AUTOMATED 288 K/uL (150-450)
[2018-01-01 12:30] VITALS: BP 131/77
== END 2018-01-01 12:53 | disposition home or self-care (01) ==
LOC: ER 11:45
DX: F10.230 Alcohol dependence with withdrawal, uncomplicated (principal); Y90.4 Blood alcohol level of 80-99 mg/100 ml; F17.210 Nicotine dependence, cigarettes, uncomplicated
CPT/HCPCS: 36415; 80305; 81001; 83735; 84443; 85025; 86703; 99283; A9270; G0480; 80320; 80329; 82040; 82247; 82310; 82374; 82435; 82565; 82947; 84075; 84132; 84155; 84295; 84450; 84460; 84520

== ENCOUNTER 2018-01-18 04:17 | Emergency (ER) | payer MEDICARE, MEDICAID ==
--- NOTE | 2018-01-18 04:19 | ER Report ---
History and Physical Time Seen By MD: 04:19 HPI/ROS CHIEF COMPLAINT: Alcohol intoxication, suicidal ideation HISTORY OF PRESENT ILLNESS: 47-year-old male with a long history of mental health problems. He has numerous readmits for suicidal ideation when he uses alcohol and cannabis. Tonight he was brought in by [employer] police and placed on an emergency longterm for suicidal ideation. Patient has previous admissions, his last was a month ago where he was admitted for one week. Prior to that he was admitted for approximately 2 weeks in August and then transferred to the [facility]. Patient appears grossly slurred speech tonight impaired and intoxicated. Patient was encountered by [employer] police officers. After he pushed a 1 of the mortgage loan assistant buttons on-campus requesting a ride home. Officers took the patient home. When he got home he is expressing suicidal ideation that he might cut his throat to officers. REVIEW OF SYSTEMS: Respiratory: No cough, no dyspnea. Cardiovascular: No chest pain, no palpitations. Gastrointestinal: No vomiting, no abdominal pain. Musculoskeletal: No back pain. Allergies: Coded Allergies: No Known Allergies (Verified Allergy, Mild, 01/18/18) Home Meds Reported Medications Trazodone Hcl (TRAZODONE HCL) 50 Mg Tablet, 50-100 MG PO QHS 01/01/18 Levothyroxine Sodium (SYNTHROID) 112 Mcg Tablet, 100 MCG PO QDAY, TAB 12/15/17 Reviewed Nurses Notes: Yes Old Medical Records Reviewed: Yes Hx Smoking: Yes Smoking Status: Current: Every Day Smoker Exposure to Second Hand Smoke?: Yes Hx Substance Use Disorder: Yes Hx Alcohol Use: Yes Constitutional Vital Sign - Last 24 Hours 01/18/18 01/18/18 04:20 06:06 Temp 98.2 Pulse 54 54 Resp 16 16 B/P (MAP) 116/80 129/81 (97) Pulse Ox 90 90 O2 Delivery Room Air Room Air Physical Exam General Appearance: The patient is alert, has no immediate need for airway protection and no current signs of toxicity. Vital signs stable, afebrile, pulse ox normal, palpation of the head and neck reveal no tenderness or trauma HEENT: Pupils equal and round no injection. Oropharynx without dental trauma, heavy odor of EtOH Respiratory: Chest is non tender, lungs are clear to auscultation. Cardiac: regular rate and rhythm Gastrointestinal: Abdomen is soft and non tender, no masses, bowel sounds normal. Musculoskeletal: Neck: Neck is supple and non tender. Extremities have full range of motion and are non tender. Skin: No rashes or lesions. DIFFERENTIAL DIAGNOSIS: After history and physical exam differential diagnosis was considered for depression including functional and major depression, situational depression, medication side effect, drugs and alcohol abuse. Medical Decision Making Data Points Result Diagram: 01/18/18 0455 01/18/18 0455 Laboratory Hematology Test 01/18/18 04:55 Red Blood Count 5.56 M/uL (4.00-5.60) Mean Corpuscular Volume 92.5 fL (80.0-96.0) Mean Corpuscular Hemoglobin 31.2 pg (26.0-33.0) Mean Corpuscular Hemoglobin Concent 33.8 g/dL (32.0-36.0) Red Cell Distribution Width 14.2 % (11.5-14.5) Mean Platelet Volume 8.5 fL (7.2-11.1) Neutrophils (%) (Auto) 58.4 % (39.4-72.5) Lymphocytes (%) (Auto) 31.2 % (17.6-49.6) Monocytes (%) (Auto) 9.0 % (4.1-12.4) Eosinophils (%) (Auto) 0.5 % (0.4-6.7) Basophils (%) (Auto) 0.9 % (0.3-1.4) Nucleated RBC Relative Count (auto) 0.0 /100WBC Neutrophils # (Auto) 2.8 K/uL (2.0-7.4) Lymphocytes # (Auto) 1.5 K/uL (1.3-3.6) Monocytes # (Auto) 0.4 K/uL (0.3-1.0) Eosinophils # (Auto) 0.0 K/uL (0.0-0.5) Basophils # (Auto) 0.0 K/uL (0.0-0.1) Nucleated RBC Absolute Count (auto) 0.00 K/uL Sodium Level 142 mmol/L (137-145) Potassium Level 3.3 mmol/L (3.5-5.0) Chloride Level 105 mmol/L (98-107) Carbon Dioxide Level 24 mmol/L (22-30) Blood Urea Nitrogen 5 mg/dl (9-21) Creatinine 0.80 mg/dl (0.66-1.25) Glomerular Filtration Rate Calc > 60.0 Random Glucose 103 mg/dl (75-110) Calcium Level 8.3 mg/dl (8.4-10.2) Magnesium Level 1.6 mg/dl (1.7-2.2) Total Bilirubin 0.4 mg/dl (0.2-1.3) Aspartate Amino Transf (AST/SGOT) 47 U/L (0-35) Alanine Aminotransferase (ALT/SGPT) 26 U/L (0-56) Alkaline Phosphatase 103 U/L (0-126) Total Protein 7.1 g/dl (6.3-8.2) Albumin 4.0 g/dl (3.5-5.0) Salicylates Level < 10 mg/L Salicylate Last Dose Date unk Acetaminophen Level < 10 ug/ml Serum Alcohol 264 mg/dl Chemistry Test 01/18/18 04:55 White Blood Count 4.8 k/uL (4.5-11.0) Red Blood Count 5.56 M/uL (4.00-5.60) Hemoglobin 17.4 g/dL (14.0-18.0) Hematocrit 51.4 % (42.0-52.0) Mean Corpuscular Volume 92.5 fL (80.0-96.0) Mean Corpuscular Hemoglobin 31.2 pg (26.0-33.0) Mean Corpuscular Hemoglobin Concent 33.8 g/dL (32.0-36.0) Red Cell Distribution Width 14.2 % (11.5-14.5) Platelet Count 173 K/uL (150-450) Mean Platelet Volume 8.5 fL (7.2-11.1) Neutrophils (%) (Auto) 58.4 % (39.4-72.5) Lymphocytes (%) (Auto) 31.2 % (17.6-49.6) Monocytes (%) (Auto) 9.0 % (4.1-12.4) Eosinophils (%) (Auto) 0.5 % (0.4-6.7) Basophils (%) (Auto) 0.9 % (0.3-1.4) Nucleated RBC Relative Count (auto) 0.0 /100WBC Neutrophils # (Auto) 2.8 K/uL (2.0-7.4) Lymphocytes # (Auto) 1.5 K/uL (1.3-3.6) Monocytes # (Auto) 0.4 K/uL (0.3-1.0) Eosinophils # (Auto) 0.0 K/uL (0.0-0.5) Basophils # (Auto) 0.0 K/uL (0.0-0.1) Nucleated RBC Absolute Count (auto) 0.00 K/uL Glomerular Filtration Rate Calc > 60.0 Calcium Level 8.3 mg/dl (8.4-10.2) Magnesium Level 1.6 mg/dl (1.7-2.2) Total Bilirubin 0.4 mg/dl (0.2-1.3) Aspartate Amino Transf (AST/SGOT) 47 U/L (0-35) Alanine Aminotransferase (ALT/SGPT) 26 U/L (0-56) Alkaline Phosphatase 103 U/L (0-126) Total Protein 7.1 g/dl (6.3-8.2) Albumin 4.0 g/dl (3.5-5.0) Salicylates Level < 10 mg/L Salicylate Last Dose Date unk Acetaminophen Level < 10 ug/ml Serum Alcohol 264 mg/dl Toxicology Test 01/18/18 04:55 Salicylates Level < 10 mg/L Salicylate Last Dose Date unk Acetaminophen Level < 10 ug/ml Serum Alcohol 264 mg/dl EKG/Imaging EKG Interpretation 12 lead EK Rhythm: Sinus bradycardia with sinus arrhythmia [place]: Rightward axis QRS: normal ST segments: Nonspecific ST and T-wave changes, comparison to previous EKG dated 08/07/17, there is probably no significant overall morphologic change ED Course/Re-evaluation ED Course Patient was admitted to an examination room. H&P was done. The differential diagnoses was considered. On clinical examination. Patient is admitted to an examination room. H&P is done. The differential diagnoses was considered. On clinical examination. She appears grossly intoxicated. He was expressing suicidal ideation to police. Placed him on an emergency longterm. Patient has a [place] to express suicidal ideation when he is grossly intoxicated. He has multiple previous admissions to [facility]. 01/18/2018 5:56:11 am case discussed with Dr. De Jesus psychiatrist on-call, who accepts the patient for admission to [facility] on an emergency longterm. Decision to Disposition Date: Jan 18, 2018 Decision to Disposition Time: 04:31 Depart Departure Latest Vital Signs Vital Signs Date Time Temp Pulse Resp B/P (MAP) Pulse Ox O2 Delivery O2 Flow Rate FiO2 01/18/18 06:06 54 16 129/81 (97) 90 Room Air 01/18/18 04:20 98.2 Impression: Primary Impression: Alcohol abuse Additional Impressions: Depression with suicidal ideation Schizoaffective disorder, bipolar type Condition: Improved Disposition: XFER TO [facility] UN[facility] Title 25 Evaluation Date of Report: Jan 18, 2018 Examiner: Dr. Neftali Arellano Patient Detained By: Law Enforcement Date Patient Detained: Jan 18, 2018 Time Patient Detained: 04:09 Date Fpc Expires: Jan 23, 2018 Time Fpc Expires: 04:09 Legal Status: Relationship: Single Legal Status: Residence: [address] Resident, [facility] Resident Assessment Data Provided By: Patient, Other Source Chief Complaint: Suicidal ideation HPI/ROS: 47-year-old male expressed suicidal ideation to community development officer after receiving a ride home. Patient's grossly intoxicated. He has an extensive past medical history of behavioral health issues. He's been transferred to the [facility] back in August of this year. Patient was expressing suicidal ideation threatening to cut his neck or his wrists in front of the officers. He was brought in, placed on an emergency longterm by officers. Patient would not cooperate offer much information. He would not talk. Most information was obtained from previous records. Diagnosis: Past medical records show Bipolar schizoaffective disorder Cannabis abuse disorder Alcohol abuse disorder Depression Risk Formulation: Patient is high risk while intoxicated. Current Dangerous Risk Assess: Current Suicide Ideation Current Risk Summary: Patient is considered high risk. At this time. Fpc will be upheld. Past Dangerous Risk Assess: Suicide Ideation-last 6mo Problem Qualifiers NEFTALI ARELLANO DO Jan 18, 2018 04:19
[2018-01-18 05:06] LABS: PLATELET COUNT, AUTOMATED 173 K/uL (150-450)
[2018-01-18] MEDS ORDERED: WATER STERILE 10 ML VIAL IM ONLY ONE (05:25)
[2018-01-18] MEDS ORDERED: OLANZapine 10 MG VIAL IM ONLY ONE (05:25)
[2018-01-18] MEDS ORDERED: diphenhydrAMINE 50 MG/ML VIAL IVP ONE (05:55)
[2018-01-18] MEDS ORDERED: LORazepam 2 MG/ML VIAL IVP ONE (05:55)
[2018-01-18 06:06] VITALS: BP 129/81
--- NOTE | 2018-01-18 06:17 | EKG ---
FACILITY: [facility] PATIENT NAME: ANASTASIIA VILLAGOMEZ : [id number] MR: [id number] V: [id number] EXAM DATE: ORDERING PHYSICIAN: BENNY DAVISON TECHNOLOGIST: TYE Hardy Reason : DRUG USE Blood Pressure : / mmHG Vent. Rate : 053 BPM Atrial Rate : 053 BPM P-R Int : 148 ms QRS Dur : 104 ms QT Int : 488 ms P-R-T Axes : 065 107 -10 degrees QTc Int : 457 ms Sinus bradycardia with sinus arrhythmia Rightward axis ST and T wave abnormality, consider inferior ischemia ST and T wave abnormality, consider anterior ischemia Abnormal ECG When compared with ECG of 07-AUG-2017 08:23, T wave inversion now evident in Anterior leads Confirmed by HEIDY BARGER ([id number]) on 01/18/2018 11:15:09 AM Referred By: Confirmed By:HEIDY BARGER
== END 2018-01-18 06:21 ==
LOC: ER 04:44
DX: F25.0 Schizoaffective disorder, bipolar type (principal); F32.9 Major depressive disorder, single episode, unspecified; R45.851 Suicidal ideations; F10.129 Alcohol abuse with intoxication, unspecified; Y90.8 Blood alcohol level of 240 mg/100 ml or more; F17.210 Nicotine dependence, cigarettes, uncomplicated
CPT/HCPCS: 36415; 83735; 84443; 85025; 93005; 96374; 99283; A4216; G0480; J1200; J3490; 80320; 80329; 82040; 82247; 82310; 82374; 82435; 82565; 82947; 84075; 84132; 84155; 84295; 84450; 84460; 84520

== ENCOUNTER 2018-01-18 06:08 | Inpatient (IN) | payer MEDICARE, MEDICAID ==
[~2018-01-18] VITALS: Ht 167.6 cm; Wt 79.4 kg
[~2018-01-18 06:08] MED LIST changes: -CYPR4TAB32 PO; +CYPR4TAB5 PO; -TRAZ-156 PO; +TRAZ50TA34 PO
[2018-01-18] MEDS ORDERED: IBUPROFEN 600 MG TAB PO PRN (06:15)
[2018-01-18] MEDS ORDERED: MAG HYD/AL HYD/SIMETH 30ML UDC PO PRN (06:15)
[2018-01-18] MEDS: FOLIC ACID 1 MG TAB PO SCH (09:15)
[2018-01-18] MEDS: THIAMINE HCL 100 MG TAB PO SCH (09:15)
[2018-01-18] MEDS: MULTIVITAMINS TAB PO SCH (09:15)
[2018-01-18 11:49] VITALS: BP 96/66
--- NOTE | 2018-01-18 16:30 | HISTORY AND PHYSICAL ---
DATE OF ADMISSION: January 18, 2018 Patient was seen at approximately 1100 hours on the morning of 18 January 2018 for note concerning this dictation. PRESENTING PROBLEM/CHIEF COMPLAINT This is a very well-known 47-year-old male who presents once again in a state of alcohol intoxication, proclaiming thoughts of self-harm and suicidal threats toward police officers after contacting them. HISTORY OF PRESENT ILLNESS Again, well-known 47-year-old male with multiple admissions here at [facility] over the years. Patient has a history of becoming intoxicated on alcohol and sometimes illicit substances such as cannabis. Patient's mood quickly decompensates, and patient engages in parasuicidal behaviors. Patient admitted under an emergency detainment for voicing suicidal thoughts and thoughts of self harm to police after contacting the police. Please see emergency room note. Patient himself agitated in the ER, was given chemical restraint. On the morning of 18 January 2018 shortly after patient was admitted to [facility], interview was attempted, patient lethargic and not wanting to communicate with this provider or other behavioral health staff, patient stating, "Fuck you," to behavioral staff members. MENTAL HEALTH HISTORY Patient has been an inpatient here at [facility] on multiple occasions. Patient had been in the [facility] as well. He had been most [facility]. Patient continues to have relapses into alcohol use disorder and cannabis use and continues to have longstanding history of mood decompensation when under the influence of substances. Patient also has a history of relatively quick stabilization in the absence of illicit substances and/or alcohol use. Patient has longstanding parasuicidal attempts and generalized suicidal ideation in nature when under the influence of substances. Patient most recently living in [facility] apartments here in [place]. FAMILY PSYCHIATRIC HISTORY No known psychiatric illness except for substance abuse and alcohol abuse in the mother with possible in utero transmission to this patient. PAST MEDICAL HISTORY * Patient was exposed in utero to alcohol and drug abuse per past reports. * Patient suffers from hypothyroidism. Most recently was believed to be on Synthroid around 100 mcg daily. * Patient has a history of not taking medications consistently on his own accord. * Patient most recently following up with [facility]. * He had at one point in the past been diagnosed with seizure disorder, was treated with Dilantin and Depakote. Seizures do not seem to be significant in the absence of anti-seizure drugs now. They are not believed to be present at all in the patient's life. Patient's seizure disorder may have been related to alcohol withdrawal or drug use in the past as well. ALLERGIES He has no known allergies. SOCIAL HISTORY Patient was born to a substance using, alcohol abusing mother, likely resulted in the patient's current deficits according to some reports. At age 5, patient was adopted into an intact family. He became institutionalized at age 15 for aggressive behavior and after that was placed in foster care. Patient graduated high school. He was working in [place] in the past, had many different jobs. Patient was noted in the remote past to be working for a long time at [employer]. Patient is on disability, currently living in [facility] apartments in the [place] area. He recently had jobs in restaurants again. He is believed to be currently unemployed. He is believed to be his own legal guardian and receives Social Security Disability. SUBSTANCE ABUSE HISTORY Patient has longstanding relapses in the use of alcohol and often cannabis. Patient's amphetamines screens have been positive in the past. He has abused epinephrine over the counter in the past as well as LSD. PHYSICAL EXAMINATION Please see emergency room note. Notable for: GENERAL: Well-known, 47-year-old male, no acute medical distress. VITAL SIGNS: Vital signs at time of admission, temperature 98.2, pulse 54, respiratory rate 16, blood pressure 116/80, and pulse oximetry 90 on room air. LABORATORY DATA CBC unremarkable. CMP notable for potassium slightly low at 3.3, AST elevated at 47, calcium low at 8.3. TSH pending at time of this dictation. Patient was unable to give a urinalysis or a urine drug screen. He was found to have a serum alcohol level of 264 upon admission. Troponins were negative. For EKG, please see electronic data. MENTAL STATUS EXAMINATION GENERAL APPEARANCE, BEHAVIOR, AND ATTITUDE: Patient covered under sheet, would not respond to this provider or other treatment team staff. Psychomotor retardation evident. Patient was given chemical restraint. SPEECH: Unable to be fully assessed. MOOD: Depressed-appearing. AFFECT: Constricted, mood congruent. THOUGHT PROCESS: No obvious loose associations or flight of ideas were detected. THOUGHT CONTENT: Patient reporting suicidal thoughts with plan to cut self prior to admission. Denying homicidal ideation. SENSORIUM: Likely relatively clear. COGNITION: Likely alert and oriented to person, place, time, and partially to situation. MEMORY: Immediate, recent, and remote historically intact. INTELLIGENCE: Historically average to just below based on interviews and previous knowledge of this patient, rule out borderline intellectual functioning. INSIGHT AND JUDGMENT: Historically grossly intact in the absence of alcohol and substance use. ASSESSMENT This is a 47-year-old male very well known to the Behavioral Health Department and [facility] in general. Patient continues to suffer extreme mood decompensation in the presence of alcohol and substance use. At this time, patient has been following up closely with [facility], and many outpatient supports are in place. Will evaluate court direction from previous admissions for placement in rehab. DIAGNOSES PER DIAGNOSTIC AND STATISTICAL MANUAL OF MENTAL DISORDERS, FIFTH EDITION 1. Alcohol intoxication. 2. Alcohol use disorder, severe. 3. 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 4. Cannabis use disorder. 5. History of other substance use disorder. 6. History of schizoaffective disorder. 7. Social stressors related to illness. PLAN 1. Admit to the unit. 2. Necessary precautions to be implemented. 3. Patient will participate in individual and group therapy. 4. Medications will be administered and titrated accordingly. 5. Collateral information will be obtained as necessary. 6. Estimated length of stay unknown, patient under an emergency detainment at this time. [facility]
[2018-01-18] MEDS ORDERED: DIAZEPAM 10 MG TAB PO ONE (19:00)
--- NOTE | 2018-01-18 19:04 | BHS - Psychiatric Evaluation ---
ER - Title 25 MHE Evaluation Title 25 Evaluation Patient Detained By: Physician (Dr. Neftali Arellano), Law Enforcement Referral Source: Law Enforcement Date Patient Detained: Jan 18, 2018 Time Patient Detained: : Date Intermediate Expires: Jan 23, 2018 Time Intermediate Expires: Legal Status: Police Hold: No Legal Status: Residence: [facility] Resident, [facility] Resident Assessment Data Provided By: Patient, Law Enforcement (3-81), Other Source ( Patient Electronic Medical record and professional staff at [facility]) HPI/ROS: From ER Dr. Neftali Arellano, "47-year-old male expressed suicidal ideation to police commanding officer after receiving a ride home. Patient's grossly intoxicated. He has an extensive past medical history of behavioral health issues. He's been transferred to the [facility] back in August of this year. Patient was expressing suicidal ideation threatening to cut his neck or his wrists in front of the officers. He was brought in, placed on an emergency prison by officers. Patient would not cooperate offer much information. He would not talk. Most information was obtained from previous records." Admit due to SI or Attempt: Yes Suicide Plan: Has Plan with Access (Patient threatening to cut neck or wrists) Current Suicide Plan Denies ideation currently, saying, "I did not want to be here!" Likely his sentiment reflects his understanding that his suicidal statements led him to be detained. Alcohol or Drugs Involved: Yes (patient acknowledges drinking and using marijuana) Is Patient Info Reliable: Yes (Patient said to this interviewer, "I feel like giving up.") Is Collateral Info Reliable: Yes (Patient Electronic Medical record and professional staff at [facility], also [facility] [employer] Equipment [employer]airer , and C professional Cassie Horan ) Current Home Psych Meds: Trazodone Mental Status Exam General Appearance: Unkept ([place] over his head for some of the interview.) Speech: Clear Mood: Dysthmic/Depressed Affect: Withdrawn Thought Process: Other (Ruminating on, "I am not signing anything. I don't want to be here!") Thought Content: Suicidal Ideation (Hopelessness) Cognition: Alert & Oriented-Person, Alert & Oriented-Place, No Alert-Oriented- Situation Memory: Immediate Insight Judgment: Poor Sleep: Hypersomnia Hallucinations: Denies Delusions: Denies Current Risk & History Current Dangerous Risk Assessm: Current Suicide Ideation (Expressed as hopelessness) Past Dangerous Risk Assessm: Self-Injurious Behaviors (Drinking, drinking and driving, also suicidal ideation and past suicidal behaviors.) Prior Alcohol/Drug Abuse Patient has a well documented struggle with drugs and alcohol. He has difficulty maintaining sobriety. [facility] Ste[employer] Equipment Repairer learned patient has been recommended residential treatment by [facility] professionals to support recovery that has eluded patient's abilities for a considerable time. Previous Suicide Attempt: Past - Low Lethality (Chronic suicidality when intoxicated.) Number of Attempts/Description Patient describes a decade of suicidal feelings that can be infrequent at times , but chronic. Previous Psychiatric Illness: Yes Previous Diagnosis/Treatment: Alcohol use disorder, severe. Alcohol intoxification. Alcohol withdrawal. Cannabis use disorder, severe. Cannabis intoxication. Rule out stimulant use disorder, methamphetamine. 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 Hypothyroidism. History of schizoaffective disorder, bipolar type. Ongoing limited ability to function independently. Previous Psychiatric Treatment: Yes Risk Assessment & Disposition Evaluated Risk Assessment: Current risk is severe, based on patient unable to maintain sobriety and feeling suicidal every time he binge drinks. He has current and historic impulsive plans to end his life. He acknowledges he is unable to maintain sobriety on his own. He reports being unable to feel stable and wants help. In his current state of decompensation, patient received two DUIs fairly close together. He is most recently very afraid of going to court, believes he goes this MondayJanuary 22 and is nervous that court will compel him to mcc time. He is not able to care for himself reliably at this time. Although patient has an apartment in [facility] housing, and was working two jobs, he acknowledges he was taking on too much and says, "I just snapped and the drinking started again." Previous detentions/hospitalizations involved patient coming to the attention of Law Enforcement because on one occasion he drank and took too much of his medicine in an attempt to kill himself, and on another recent hospitalization, he reported he wanted to end his life by walking in traffic on [address]. He further elaborated that he had been hearing voices telling him to commit suicide , had been drinking, and had not been taking mood stabilizing medications anymore. Risk of further decompensation is high for patient, and as demonstrated , could easily be lethal. Most concerning on this occasion are patient's two DUI's very close to each other, and inability to achieve any consistent sobriety. This is an escalated danger for the patient and also for public safety. Impression: Primary Impression: Cannabis use disorder, severe, in controlled environment Additional Impressions: Schizoaffective disorder History of suicide attempt Meets Mental Illness Req.: Yes Meets Dangerousness Req.: Yes Emergency Intermediate to be: Upheld Decision Comment: Patient is assessed as unsafe at this time, and needs a safe and structured environment to help him stabilize. Date of Decision: Jan 18, 2018 Time of Decision: 18:54 Patient is Medically Stable at: Yes Disposition: [facility] Problem Qualifiers SARAH EWING LPC Jan 18, 2018 19:04
--- NOTE | 2018-01-18 19:30 | BHS - Psychiatric Evaluation ---
Title 25 Evaluation Hearing Report: [id number] Date of Report: Jan 18, 2018 Examiner: Patito Garay M.S., L.P.C. Patient Detained By: Physician (Dr. Neftali Arellano), Law Enforcement 24hr Mental Health Eval By: Patito Garay M.S., L.P.C. Date Patient Detained: Jan 18, 2018 Time Patient Detained: 04:09 Date Chcf Expires: Jan 23, 2018 Time Chcf Expires: 04:09 Legal Status: Police Hold: No Legal Status: Relationship: Single Legal Status: Residence: [facility] Resident, [place] Resident Referral Source: Law Enforcement Assessment Data Provided By: Patient, Law Enforcement (), Other Source ( Patient Electronic Medical record and professional staff at [facility]) Chief Complaint: Patient, Alphonse Del Angel, is a well known 47-year-old male who presented under an emergency detainment, escorted by police to Emergency Room. Patient required sedating medications sedating in the ER. Patient had been intoxicated, and indicated to Law Enforcement that he was suicidal was a plan to harm himself, especially cut his neck or cut his wrists. HPI/ROS: From ER Dr. Neftali Arellano, "47-year-old male expressed suicidal ideation to superintendent police after receiving a ride home. Patient's grossly intoxicated. He has an extensive past medical history of behavioral health issues. He's been transferred to the [facility] back in August of this year. Patient was expressing suicidal ideation threatening to cut his neck or his wrists in front of the officers. He was brought in, placed on an emergency senior care by officers. Patient would not cooperate offer much information. He would not talk. Most information was obtained from previous records." Diagnosis: Alcohol use disorder, severe. Alcohol intoxification. Alcohol withdrawal. Cannabis use disorder, severe. Cannabis intoxication. Rule out stimulant use disorder, methamphetamine. 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 Hypothyroidism. History of schizoaffective disorder, bipolar type. Ongoing limited ability to function independently. Risk Formulation: The patient "evidences a substantial probability of physical harm to self as manifested by evidence of recent threats of/or attempts at suicide or serious bodily harm" as evidenced by: Current risk is severe, based on patient unable to maintain sobriety and feeling suicidal every time he binge drinks. He has current and historic impulsive plans to end his life. He acknowledges he is unable to maintain sobriety on his own. He reports feeling hopeless, and being unable to feel stable. Recently, patient received two DUIs fairly close together. He is says he isvery afraid of going to court, believes he goes this MondayJanuary 22 and is nervous that court will compel him to detention time. He is not able to care for himself reliably at this time. Although patient has an apartment in [facility] housing, and was working two jobs, he acknowledges he was taking on too much and says, "I just snapped and the drinking started again." Previous detentions/ hospitalizations involved patient coming to the attention of Law Enforcement because on one occasion he drank and took too much of his medicine in an attempt to kill himself, and on another recent hospitalization, he reported he wanted to end his life by walking in traffic [place] [address] He further elaborated that he had been hearing voices telling him to commit suicide, had been drinking, and had not been taking mood stabilizing medications anymore. Risk of further decompensation is high for patient, and as demonstrated, could easily be lethal. Most concerning are patient's current hopelessness, inability to stop drinking, two DUI's very close to each other, and his inability to achieve any consistent sobriety. This is an escalated danger for the patient and also for public safety. Recommendations of [facility] Team: That the patient's initial senior care be upheld and extended for up to ten (10) days to allow for further evaluation, monitoring, and stabilization. [facility] Gatekeepers will follow patient during admission and after discharge. Patient has a directed commitment though the court requiring him to follow- through with treatment and sobriety in a way that patient is not currently accomplishing. Reliability of Collateral Info Reliability of 3-81, patient's Electronic Medical Record, and professional staff 's observation and interventions with patient are high. Current Dangerous Risk Assess: Current Suicide Ideation (Denies, but says he feels like "giving up.") Current Risk Summary: The patient "evidences a substantial probability of physical harm to self as manifested by evidence of recent threats of/or attempts at suicide or serious bodily harm" as evidenced by: Current risk is severe, based on patient unable to maintain sobriety and feeling suicidal every time he binge drinks. He has current and historic impulsive plans to end his life. He acknowledges he is unable to maintain sobriety on his own. He reports feeling hopeless, and being unable to feel stable. Recently, patient received two DUIs fairly close together. He is says he is very afraid of going to court, believes he goes this MondayJanuary 22 and is nervous that court will compel him to detention time. He is not able to care for himself reliably at this time. Although patient has an apartment in [facility] housing, and was working two jobs, he acknowledges he was taking on too much and says, "I just snapped and the drinking started again." Previous detentions/ hospitalizations involved patient coming to the attention of Law Enforcement because on one occasion he drank and took too much of his medicine in an attempt to kill himself, and on another recent hospitalization, he reported he wanted to end his life by walking in traffic [place] [address] He further elaborated that he had been hearing voices telling him to commit suicide, had been drinking, and had not been taking mood stabilizing medications anymore. Risk of further decompensation is high for patient, and as demonstrated, could easily be lethal. Most concerning are patient's current hopelessness, inability to stop drinking, two DUI's very close to each other, and his inability to achieve any consistent sobriety. This is an escalated danger for the patient and also for public safety. Past Dangerous Risk Assess: Self-Injurious Behaviors (Drinking, drinking and driving, also suicidal ideation and past suicidal behaviors.) BHS - Exam Physical Exam Vital Signs Vital Signs 01/18/18 11:49 Temp 97.7 Pulse 54 B/P (MAP) 96/66 (76) Pulse Ox 89 O2 Delivery Room Air Mental Status Exam General Appearance: Unkept ([place] over his head for some of the interview.) Speech: Clear Mood: Dysthmic/Depressed Affect: Withdrawn Thought Process: Other (Ruminating on, "I am not signing anything. I don't want to be here!") Thought Content: Suicidal Ideation (Hopelessness) Cognition: Alert & Oriented-Person, Alert & Oriented-Place, No Alert-Oriented- Situation Memory: Immediate Insight Judgment: Poor Sleep: Hypersomnia Care & Behavior on Unit Treatment Team Participation: Currently patient is refusing to be out of bed or converse with professionals. This is often a customary beginning of patient's hospitalization at [facility]. Pt. Taking Meds Voluntarily: Yes Title 25 History Psychiatric History: Patient has been an inpatient here at [facility] on multiple occasions. Patient had been in the [facility] as well. He had [facility] most [facility]. Patient continues to have relapses into alcohol use disorder and cannabis use and continues to have longstanding history of mood decompensation when under the influence of substances. Patient also has a history of relatively quick stabilization in the absence of illicit substances and/or alcohol use. Patient has longstanding parasuicidal attempts and generalized suicidal ideation in nature when under the influence of substances. Patient is living in [facility] apartments here in [place]. Family Psychiatric Hx: No known psychiatric illness except for substance abuse and alcohol abuse in the mother, with possible in-utero transmission of alcohol and drug abuse. Social History: The patient was born to a substance-using, alcohol-abusing mother, which likely resulted in the patient's current deficits according to some reports. At age [age], patient was adopted into an intact family. He was institutionalized at age 15 for aggressive behavior, and after that was placed in foster care. The patient graduated high school, was working in [place] in the past, had many different jobs. Patient was noted in the remote past noted to be working long- term at [employer]. Patient is on disability, currently living in [facility] in [facility]. Patient was working at [employer] and [employer] as well. He reports this was becoming very overwhelming for him, and he had initially believed both jobs would be a good idea for him because he wanted to have a car for transportation, but now believes two jobs to support a car, may be too much for his well-being. Patient fears going to court next week because he believes he will be sentenced to some detention time. Prior Hospitalizations: Mar 14, 2008 Apr 26, 2008 September 20, 2008 Sep 05, 2009 December 07, 2009 May 31, 2017 Jul 10, 2017 Aug 07, 2017 December 14, 2017 It is believed that patient lived in the [place] area between the latter part of 2009 until this year when he returned to [place]. Patient reports additional hospitalizations during that time at the [facility]. Drug & Alcohol Use: Patient currently using alcohol and cannabis again. Patient's amphetamine screen notably positive as well. He has abused epinephrine [id number] in the past, as well as LSD. In remote past, patient was known to be a binge drinker on the weekends while working at [employer] for many years, but eventually alcohol dependence did get to the point where patient's job was terminated. Legal Concerns: This year patient has had unpaid municipal fines as well as two DUIs very close together. Patient Strengths: Patient is congenial, sincere, and enjoys others' company and support. Current Medical Data: Patient requires medicine for a chronic physical problem. Patient's lab work across several hospitalizations indicates a significantly elevated TSH. The patient is known not to take medications as prescribed, including his Synthroid , which was most recently prescribed at 100 mcg a day Trazodone and Synthroid (for physical malady). Relevant Medications: Trazodone and Synthroid (for physical malady). PATITO GARAY RN CARDIOVASCULAR Jan 18, 2018 19:06
[2018-01-18 21:27] VITALS: BP 118/60
[2018-01-18] MEDS: traZODone HCL 50 MG TAB PO SCH (21:46)
[2018-01-19] MEDS: LEVOTHYROXINE SOD 0.112 MG TAB PO SCH (06:12)
[2018-01-19] MEDS: THIAMINE HCL 100 MG TAB PO SCH (08:46)
[2018-01-19] MEDS: FOLIC ACID 1 MG TAB PO SCH (08:46)
[2018-01-19] MEDS: MULTIVITAMINS TAB PO SCH (08:46)
--- NOTE | 2018-01-19 09:35 | BHS Progress Note ---
[facility] - Subjective Progress Notes Subjective Patient listening to this provider and hospital housekeeper staff this AM while in bed, but again refusing to get out of bed, or reciprocate in communication. Will work with court to have patient enter ordered rehab at this time. No alcohol withdrawal today. Will work to get patient to participate in treatment today. No other concerns. Suicidal Ideation: Resolving Homicidal Ideation: None S - Objective Physical Exam Vital Signs Vital Signs Date Time Temp Pulse Resp B/P (MAP) Pulse Ox O2 Delivery O2 Flow Rate FiO2 01/18/18 21:27 98.9 66 118/60 (79) 100 Room Air Hematology Test 01/18/18 00:00 01/18/18 07:25 01/18/18 19:58 Urine Color Yellow Urine Clarity Clear Urine pH 6.0 pH (4.8-9.5) Urine Specific [place] 1.010 Urine Protein Negative mg/dL (NEGATIVE) Urine Glucose (UA) Negative mg/dL (NEGATIVE) Urine Ketones Negative mg/dL (NEGATIVE) Urine Blood Negative (NEGATIVE) Urine Nitrite Negative (NEGATIVE) Urine Bilirubin Negative (NEGATIVE) Urine Urobilinogen 2.0 mg/dL (0.2-1.9) Urine Leukocyte Esterase Negative (NEGATIVE) Urine RBC None /HPF (0-2/HPF) Urine WBC 2 /HPF (0-5/HPF) Urine Squamous Epithelial Cells Few /LPF (</=FEW) Urine Bacteria Negative /HPF (NONE-FEW) Urine Mucus Few /HPF (NONE-FEW) Urine Opiates Screen Negative Urine Barbiturates Screen Negative Ur Tricyclic Antidepressants Screen Negative Urine Phencyclidine Screen Negative Urine Amphetamines Screen Negative Urine Benzodiazepines Screen Negative Urine Cocaine Screen Negative Urine Cannabinoids Screen Positive Troponin I < 0.012 ng/ml Chemistry Test 01/18/18 00:00 01/18/18 07:25 01/18/18 19:58 Urine Color Yellow Urine Clarity Clear Urine pH 6.0 pH (4.8-9.5) Urine Specific [place] 1.010 Urine Protein Negative mg/dL (NEGATIVE) Urine Glucose (UA) Negative mg/dL (NEGATIVE) Urine Ketones Negative mg/dL (NEGATIVE) Urine Blood Negative (NEGATIVE) Urine Nitrite Negative (NEGATIVE) Urine Bilirubin Negative (NEGATIVE) Urine Urobilinogen 2.0 mg/dL (0.2-1.9) Urine Leukocyte Esterase Negative (NEGATIVE) Urine RBC None /HPF (0-2/HPF) Urine WBC 2 /HPF (0-5/HPF) Urine Squamous Epithelial Cells Few /LPF (</=FEW) Urine Bacteria Negative /HPF (NONE-FEW) Urine Mucus Few /HPF (NONE-FEW) Urine Opiates Screen Negative Urine Barbiturates Screen Negative Ur Tricyclic Antidepressants Screen Negative Urine Phencyclidine Screen Negative Urine Amphetamines Screen Negative Urine Benzodiazepines Screen Negative Urine Cocaine Screen Negative Urine Cannabinoids Screen Positive Troponin I < 0.012 ng/ml Toxicology Test 01/18/18 00:00 Urine Opiates Screen Negative Urine Barbiturates Screen Negative Ur Tricyclic Antidepressants Screen Negative Urine Phencyclidine Screen Negative Urine Amphetamines Screen Negative Urine Benzodiazepines Screen Negative Urine Cocaine Screen Negative Urine Cannabinoids Screen Positive Urinalysis Test 01/18/18 00:00 Urine Color Yellow Urine Clarity Clear Urine pH 6.0 pH (4.8-9.5) Urine Specific [place] 1.010 Urine Protein Negative mg/dL (NEGATIVE) Urine Glucose (UA) Negative mg/dL (NEGATIVE) Urine Ketones Negative mg/dL (NEGATIVE) Urine Blood Negative (NEGATIVE) Urine Nitrite Negative (NEGATIVE) Urine Bilirubin Negative (NEGATIVE) Urine Urobilinogen 2.0 mg/dL (0.2-1.9) Urine Leukocyte Esterase Negative (NEGATIVE) Urine RBC None /HPF (0-2/HPF) Urine WBC 2 /HPF (0-5/HPF) Urine Squamous Epithelial Cells Few /LPF (</=FEW) Urine Bacteria Negative /HPF (NONE-FEW) Urine Mucus Few /HPF (NONE-FEW) Muscle Strength and Tone: WNL Gait and Station: Steady [facility] Medications Reviewed: Side Effects, Benefits of Medication, Risks Allergies Reviewed: Yes Mental Status Exam General Appearance: No Well Groomed, No Good Eye Contact, No Cooperative, No Polite, No Good Interaction, Unkept ([place] over his head for some of the interview.), Psychomotor Retardation Speech: Clear, Inappropriate (cursing at times) Mood: Dysthmic/Depressed Affect: Withdrawn Thought Process: Other (not choosing to communicate. ) Thought Content: Suicidal Ideation (Hopelessness), No Homicidal Ideation, No Delusions, No Auditory Halllucinations, No Visual Hallucinations, No Thought Broadcasting, No Ideas of Reference, No Obsessions, No Compulsions Sensorium: Clear Cognition: Alert & Oriented-Person, Alert & Oriented-Place, No Alert-Oriented- Situation Memory: Immediate, Recent, Remote Intelligence: Below Average Insight Judgment: Poor (limited by intellect and addiction.) [facility] Assessment and Plan [id number] Encounter Date: Jan 19, 2018 Edbo-uf-Vcye Encounter Time: 09:30 [facility] Plan: Necessary Precautions, Individual/Group Therapy, Admin/Titrate Meds, Educate Patient Tobacco Medications: Not Appropriate Condition Multpiple Antipsychotics Used: No Problems: (1) Alcohol-induced mood disorder with depressive symptoms Optional Permanent Comment: significant dysphoria follows alcohol intoxication in this patient. Last Edited By: Lebron Menendez on Aug 09, 2017 10 :47 Status: Acute (2) Cannabis use disorder, severe, in controlled environment Status: Chronic (3) Alcohol dependence Status: Chronic Condition 1. continue treatment. 2. hearing next week, if necessary Problem Qualifiers (1) Alcohol dependence: Substance use status: alcohol-induced mood disorder Qualified Codes: F10.24 - Alcohol dependence with alcohol-induced mood disorder LEBRON MENENDEZ MD Jan 19, 2018 09:35
[2018-01-19 18:25] VITALS: BP 118/78
[2018-01-19] MEDS: traZODone HCL 50 MG TAB PO SCH (21:27)
[2018-01-20] MEDS: LEVOTHYROXINE SOD 0.112 MG TAB PO SCH ×2 (06:00→06:12)
[2018-01-20 06:24] VITALS: BP 110/54
[2018-01-20] MEDS: MULTIVITAMINS TAB PO SCH (08:21)
[2018-01-20] MEDS: FOLIC ACID 1 MG TAB PO SCH (08:21)
[2018-01-20] MEDS: THIAMINE HCL 100 MG TAB PO SCH (08:22)
--- NOTE | 2018-01-20 09:53 | BHS Progress Note ---
[facility] - Subjective Progress Notes Subjective "I didn't want to be here in the first place." Client refused to get out of bed to come talk with us in treatment team room. We talked while he layed in bed with the covers pulled over his head. He denies SI/HI. Suicidal Ideation: None Homicidal Ideation: None [facility] - Objective Physical Exam Vital Signs Vital Signs 01/20/18 06:24 Temp 99.7 Pulse 66 Resp 14 B/P (MAP) 110/54 (72) Pulse Ox 92 O2 Delivery Room Air Muscle Strength and Tone: WNL Gait and Station: Steady, Other S Medications Reviewed: Side Effects, Benefits of Medication, Risks Allergies Reviewed: Yes Mental Status Exam General Appearance: No Well Groomed, No Good Eye Contact, No Cooperative, No Polite, No Good Interaction, Unkept ([place] over his head for some of the interview.), Psychomotor Retardation Speech: Clear, Inappropriate (cursing at times) Mood: Dysthmic/Depressed Affect: Withdrawn Thought Process: Other (not choosing to communicate. ) Thought Content: Suicidal Ideation (denies), No Homicidal Ideation, No Delusions, No Auditory Halllucinations, No Visual Hallucinations, No Thought Broadcasting, No Ideas of Reference, No Obsessions, No Compulsions Sensorium: Clear Cognition: Alert & Oriented-Person, Alert & Oriented-Place, No Alert-Oriented- Situation Memory: Immediate, Recent, Remote Intelligence: Below Average Insight Judgment: Poor (limited by intellect and addiction.) [facility] Assessment and Plan Ekpb-du-Vttu Encounter Date: Jan 20, 2018 Aafu-sz-Lzky Encounter Time: 09:45 [facility] Plan: Necessary Precautions, Individual/Group Therapy, Admin/Titrate Meds, Educate Patient Tobacco Medications: Not Appropriate Condition Multpiple Antipsychotics Used: No Problems: (1) Alcohol dependence Status: Chronic (2) Alcohol-induced mood disorder with depressive symptoms Optional Permanent Comment: significant dysphoria follows alcohol intoxication in this patient. Last Edited By: Дмитрий De Jesus on Aug 09, 2017 10 :47 Status: Acute (3) Cannabis use disorder, severe, in controlled environment Status: Chronic Problem Qualifiers (1) Alcohol dependence: Substance use status: alcohol-induced mood disorder Qualified Codes: F10.24 - Alcohol dependence with alcohol-induced mood disorder KOLBY BOWMAN NP Jan 20, 2018 09:53
[2018-01-20] MEDS: traZODone HCL 50 MG TAB PO SCH (21:17)
[2018-01-20 22:00] VITALS: BP 120/66
[2018-01-21] MEDS: LEVOTHYROXINE SOD 0.112 MG TAB PO SCH (06:00)
[2018-01-21] MEDS: FOLIC ACID 1 MG TAB PO SCH (08:48)
[2018-01-21] MEDS: MULTIVITAMINS TAB PO SCH (08:48)
[2018-01-21] MEDS: THIAMINE HCL 100 MG TAB PO SCH (08:49)
--- NOTE | 2018-01-21 08:55 | BHS Progress Note ---
[facility] - Subjective Progress Notes Subjective "Fine. I told them I don't want to be here and they brought me here anyway." Suicidal Ideation: None Homicidal Ideation: None [facility] - Objective Physical Exam Vital Signs Vital Signs 01/20/18 01/20/18 06:24 22:00 Temp 99.0 Pulse 74 Resp 14 B/P (MAP) 120/66 (84) Pulse Ox 95 O2 Delivery Room Air Muscle Strength and Tone: WNL Gait and Station: Steady, Other [facility] Medications Reviewed: Side Effects, Benefits of Medication, Risks Allergies Reviewed: Yes Mental Status Exam General Appearance: No Well Groomed, No Good Eye Contact, No Cooperative, No Polite, No Good Interaction, Unkept ([place] over his head for some of the interview.), Psychomotor Retardation Speech: Inappropriate (cursing at times), Other (speech impediment) Mood: Dysthmic/Depressed Affect: Withdrawn Thought Process: Other (not choosing to communicate. ) Thought Content: Suicidal Ideation (denies), No Homicidal Ideation, No Delusions, No Auditory Halllucinations, No Visual Hallucinations, No Thought Broadcasting, No Ideas of Reference, No Obsessions, No Compulsions Sensorium: Clear Cognition: Alert & Oriented-Person, Alert & Oriented-Place, No Alert-Oriented- Situation Memory: Immediate, Recent, Remote Intelligence: Below Average Insight Judgment: Poor (limited by intellect and addiction.) [facility] Assessment and Plan Lfst-rj-[id number] Encounter Date: Jan 21, 2018 Ewsk-jh-Nrgs Encounter Time: 08:30 [facility] Plan: Necessary Precautions, Individual/Group Therapy, Admin/Titrate Meds, Educate Patient Tobacco Medications: Not Appropriate Condition Multpiple Antipsychotics Used: No Problems: (1) Alcohol dependence Status: Chronic (2) Alcohol-induced mood disorder with depressive symptoms Optional Permanent Comment: significant dysphoria follows alcohol intoxication in this patient. Last Edited By: Дмитрий De Jesus on Aug 09, 2017 10 :47 Status: Acute (3) Cannabis use disorder, severe, in controlled environment Status: Chronic Problem Qualifiers (1) Alcohol dependence: Substance use status: alcohol-induced mood disorder Qualified Codes: F10.24 - Alcohol dependence with alcohol-induced mood disorder KOLBY BOWMAN NP Jan 21, 2018 08:55
[2018-01-21] MEDS: traZODone HCL 50 MG TAB PO SCH (20:24)
[2018-01-22] MEDS: LEVOTHYROXINE SOD 0.112 MG TAB PO SCH ×2 (05:44→08:41)
--- NOTE | 2018-01-22 08:36 | BHS Progress Note ---
[facility] - Subjective Progress Notes Subjective Patient remains belligerent on the unit today, asking this provider if he is "able to got to his court appointment this morning". This narrator replied that he would not, and patient stated "Don't fuck with me. I am not in the mood ". Patient is under a failed outpatient commitment at this time, and this will be revoked, and patient will be likely placed in court ordered residential treatment for alcohol and substance use. Patient not engaging in any aggressive behavior on the unit, and not displaying para-suicidal behavior on the unit. Patient refusing synthroid, over the weekend. Will encourage medication compliance, and await court direction. Suicidal Ideation: None Homicidal Ideation: None [facility] - Objective Physical Exam Vital Signs Vital Signs Date Time Temp Pulse Resp B/P (MAP) Pulse Ox O2 Delivery O2 Flow Rate FiO2 01/20/18 22:00 99.0 74 120/66 (84) 95 Room Air 01/20/18 06:24 14 Muscle Strength and Tone: WNL Gait and Station: Steady, Other S Medications Reviewed: Side Effects, Benefits of Medication, Risks Allergies Reviewed: Yes Mental Status Exam General Appearance: No Well Groomed, No Good Eye Contact, No Cooperative, No Polite, No Good Interaction, Unkept ([place] over his head for some of the interview.), Psychomotor Retardation, No Bizarre Mannerisms, No Tics Speech: Clear, Inappropriate (cursing at times), Other (speech impediment) Mood: Dysthmic/Depressed (angry) Affect: Withdrawn, Agitated Thought Process: No Loose Associations, No Flight of Ideas Thought Content: No Suicidal Ideation, No Homicidal Ideation, No Delusions, No Auditory Halllucinations, No Visual Hallucinations, No Thought Broadcasting, No Ideas of Reference, No Obsessions, No Compulsions Sensorium: Clear Cognition: Alert & Oriented-Person, Alert & Oriented-Place, Alert & Oriented- Time, No Oipbo-Cvqisple-Gprmcwvnm (partially) Memory: Immediate, Recent, Remote Intelligence: Below Average (historic borderline intellectual functioning. ) Insight Judgment: Poor (limited by intellect and abuse of alcohol and cannabis. ) [facility] Assessment and Plan Valf-br-Ggop Encounter Date: Jan 22, 2018 Fbeh-sd-Mxfw Encounter Time: 08:30 [facility] Plan: Necessary Precautions, Individual/Group Therapy, Admin/Titrate Meds, Educate Patient Tobacco Medications: Not Appropriate Condition Multpiple Antipsychotics Used: No Problems: (1) Alcohol-induced mood disorder with depressive symptoms Optional Permanent Comment: significant dysphoria follows alcohol intoxication in this patient. Physiologic Withdrawal from alcohol is not a concern Last Edited By: Lebron Menendez on Jan 22, 2018 08:35 Status: Acute (2) Cannabis use disorder, severe, in controlled environment Status: Chronic (3) Alcohol dependence Status: Chronic Condition 1. Await court direction on this mildly un-cooperative patient 2. encourage medication compliance. Problem Qualifiers (1) Alcohol dependence: Substance use status: alcohol-induced mood disorder Qualified Codes: F10.24 - Alcohol dependence with alcohol-induced mood disorder LEBRON MENENDEZ MD Jan 22, 2018 08:36
[2018-01-22] MEDS: MULTIVITAMINS TAB PO SCH (08:40)
[2018-01-22] MEDS: FOLIC ACID 1 MG TAB PO SCH (08:40)
[2018-01-22] MEDS: THIAMINE HCL 100 MG TAB PO SCH (08:41)
[2018-01-22] MEDS: traZODone HCL 50 MG TAB PO SCH (21:28)
[2018-01-23] MEDS: FOLIC ACID 1 MG TAB PO SCH (08:20)
[2018-01-23] MEDS: THIAMINE HCL 100 MG TAB PO SCH (08:20)
[2018-01-23] MEDS: MULTIVITAMINS TAB PO SCH (08:20)
--- NOTE | 2018-01-23 13:07 | BHS Progress Note ---
[facility] - Subjective Progress Notes Subjective Patient continues to resist care. Refusing synthroid, and belligerence continues. Patient is not physically or verbally aggressive toward staff on unit, but refuses to take a role in his treatment. Hearing today has directed to rehab program. Suicidal Ideation: None Homicidal Ideation: None [facility] - Objective Physical Exam Vital Signs Vital Signs Date Time Temp Pulse Resp B/P (MAP) Pulse Ox O2 Delivery O2 Flow Rate FiO2 01/20/18 22:00 99.0 74 120/66 (84) 95 Room Air 01/20/18 06:24 14 Muscle Strength and Tone: WNL Gait and Station: Steady, Other [facility] Medications Reviewed: Side Effects, Benefits of Medication, Risks Allergies Reviewed: Yes Mental Status Exam General Appearance: No Well Groomed, No Good Eye Contact, No Cooperative, No Polite, No Good Interaction, Unkept ([place] over his head for some of the interview.), Psychomotor Retardation, No Bizarre Mannerisms, No Tics Speech: Clear, Inappropriate (cursing at times), Other (speech impediment) Mood: Dysthmic/Depressed (angry) Affect: Withdrawn, Agitated Thought Process: No Loose Associations, No Flight of Ideas Thought Content: No Suicidal Ideation, No Homicidal Ideation, No Delusions, No Auditory Halllucinations, No Visual Hallucinations, No Thought Broadcasting, No Ideas of Reference, No Obsessions, No Compulsions Sensorium: Clear Cognition: Alert & Oriented-Person, Alert & Oriented-Place, Alert & Oriented- Time, No Xylro-Enozkuzm-Fpwoazshc (partially) Memory: Immediate, Recent, Remote Intelligence: Below Average (historic borderline intellectual functioning. ) Insight Judgment: Poor (limited by intellect and abuse of alcohol and cannabis. ) [facility] Assessment and Plan Kwuj-fu-Fwkq Encounter Date: Jan 23, 2018 Sxbq-rj-Qirv Encounter Time: 11:00 [facility] Plan: Necessary Precautions, Individual/Group Therapy, Admin/Titrate Meds, Educate Patient Tobacco Medications: Not Appropriate Condition Multpiple Antipsychotics Used: No Problems: (1) Alcohol-induced mood disorder with depressive symptoms Optional Permanent Comment: significant dysphoria follows alcohol intoxication in this patient. Physiologic Withdrawal from alcohol is not a concern Last Edited By: Lebron Menendez on Jan 22, 2018 08:35 Status: Acute (2) Cannabis use disorder, severe, in controlled environment Status: Chronic (3) Alcohol dependence Status: Chronic Condition 1. encourage treatment compliance. 2. await transfer to [facility]. Problem Qualifiers (1) Alcohol dependence: Substance use status: alcohol-induced mood disorder Qualified Codes: F10.24 - Alcohol dependence with alcohol-induced mood disorder LEBRON MENENDEZ MD Jan 23, 2018 13:07
[2018-01-24] MEDS: LEVOTHYROXINE SOD 0.112 MG TAB PO SCH ×2 (05:37→11:23)
[2018-01-24] MEDS: MULTIVITAMINS TAB PO SCH (08:10)
[2018-01-24] MEDS: FOLIC ACID 1 MG TAB PO SCH (08:10)
[2018-01-24] MEDS: THIAMINE HCL 100 MG TAB PO SCH (08:10)
--- NOTE | 2018-01-24 11:27 | BHS Progress Note ---
[facility] - Subjective Progress Notes Subjective Patient agreeing to take Synthroid dose again now, denies any other concerns, currently refused for [facility] treatment, will look into other options. No other concerns today, mood improving Suicidal Ideation: None Homicidal Ideation: None [facility] - Objective Physical Exam Vital Signs Vital Signs Date Time Temp Pulse Resp B/P (MAP) Pulse Ox O2 Delivery O2 Flow Rate FiO2 01/20/18 22:00 99.0 74 120/66 (84) 95 Room Air Hematology Test 01/18/18 00:00 01/18/18 07:25 01/18/18 19:58 Urine Color Yellow Urine Clarity Clear Urine pH 6.0 pH (4.8-9.5) Urine Specific [place] 1.010 Urine Protein Negative mg/dL (NEGATIVE) Urine Glucose (UA) Negative mg/dL (NEGATIVE) Urine Ketones Negative mg/dL (NEGATIVE) Urine Blood Negative (NEGATIVE) Urine Nitrite Negative (NEGATIVE) Urine Bilirubin Negative (NEGATIVE) Urine Urobilinogen 2.0 mg/dL (0.2-1.9) Urine Leukocyte Esterase Negative (NEGATIVE) Urine RBC None /HPF (0-2/HPF) Urine WBC 2 /HPF (0-5/HPF) Urine Squamous Epithelial Cells Few /LPF (</=FEW) Urine Bacteria Negative /HPF (NONE-FEW) Urine Mucus Few /HPF (NONE-FEW) Urine Opiates Screen Negative Urine Barbiturates Screen Negative Ur Tricyclic Antidepressants Screen Negative Urine Phencyclidine Screen Negative Urine Amphetamines Screen Negative Urine Benzodiazepines Screen Negative Urine Cocaine Screen Negative Urine Cannabinoids Screen Positive Troponin I < 0.012 ng/ml Tuberculin Skin Test 0 mm Chemistry Test 01/18/18 00:00 01/18/18 07:25 01/18/18 19:58 Urine Color Yellow Urine Clarity Clear Urine pH 6.0 pH (4.8-9.5) Urine Specific [place] 1.010 Urine Protein Negative mg/dL (NEGATIVE) Urine Glucose (UA) Negative mg/dL (NEGATIVE) Urine Ketones Negative mg/dL (NEGATIVE) Urine Blood Negative (NEGATIVE) Urine Nitrite Negative (NEGATIVE) Urine Bilirubin Negative (NEGATIVE) Urine Urobilinogen 2.0 mg/dL (0.2-1.9) Urine Leukocyte Esterase Negative (NEGATIVE) Urine RBC None /HPF (0-2/HPF) Urine WBC 2 /HPF (0-5/HPF) Urine Squamous Epithelial Cells Few /LPF (</=FEW) Urine Bacteria Negative /HPF (NONE-FEW) Urine Mucus Few /HPF (NONE-FEW) Urine Opiates Screen Negative Urine Barbiturates Screen Negative Ur Tricyclic Antidepressants Screen Negative Urine Phencyclidine Screen Negative Urine Amphetamines Screen Negative Urine Benzodiazepines Screen Negative Urine Cocaine Screen Negative Urine Cannabinoids Screen Positive Troponin I < 0.012 ng/ml Tuberculin Skin Test 0 mm Toxicology Test 01/18/18 00:00 Urine Opiates Screen Negative Urine Barbiturates Screen Negative Ur Tricyclic Antidepressants Screen Negative Urine Phencyclidine Screen Negative Urine Amphetamines Screen Negative Urine Benzodiazepines Screen Negative Urine Cocaine Screen Negative Urine Cannabinoids Screen Positive Urinalysis Test 01/18/18 00:00 Urine Color Yellow Urine Clarity Clear Urine pH 6.0 pH (4.8-9.5) Urine Specific [place] 1.010 Urine Protein Negative mg/dL (NEGATIVE) Urine Glucose (UA) Negative mg/dL (NEGATIVE) Urine Ketones Negative mg/dL (NEGATIVE) Urine Blood Negative (NEGATIVE) Urine Nitrite Negative (NEGATIVE) Urine Bilirubin Negative (NEGATIVE) Urine Urobilinogen 2.0 mg/dL (0.2-1.9) Urine Leukocyte Esterase Negative (NEGATIVE) Urine RBC None /HPF (0-2/HPF) Urine WBC 2 /HPF (0-5/HPF) Urine Squamous Epithelial Cells Few /LPF (</=FEW) Urine Bacteria Negative /HPF (NONE-FEW) Urine Mucus Few /HPF (NONE-FEW) Muscle Strength and Tone: WNL Gait and Station: Steady, Other S Medications Reviewed: Side Effects, Benefits of Medication, Risks Allergies Reviewed: Yes Mental Status Exam General Appearance: No Well Groomed, No Good Eye Contact, Cooperative, No Polite, No Good Interaction, Unkept (improving), No Tearful, No Psychomotor Agitation, Psychomotor Retardation, No Bizarre Mannerisms, No Tics Speech: Clear, Spontaneous, Normal Volume, Inappropriate (cursing at times), Other (speech impediment) Mood: Dysthmic/Depressed (improving, some frustration ) Affect: Calm, No Flat, No Withdrawn, No Tearful, No Anxious, No Agitated Thought Process: Goal Directed, No Loose Associations, No Flight of Ideas Thought Content: No Suicidal Ideation, No Homicidal Ideation, No Delusions, No Auditory Halllucinations, No Visual Hallucinations, No Thought Broadcasting, No Ideas of Reference, No Obsessions, No Compulsions Sensorium: Clear Cognition: Alert & Oriented-Person, Alert & Oriented-Place, Alert & Oriented- Time, No [id number]-Cnwgpxtp-Xdxthyzvz (partially) Memory: Immediate, Recent, Remote Intelligence: Below Average (historic borderline intellectual functioning. ) Insight Judgment: Poor (limited by intellect and abuse of alcohol and cannabis. ) [facility] Assessment and Plan [id number] Encounter Date: Jan 24, 2018 Mjod-vy-Fitu Encounter Time: 11:00 S Plan: Necessary Precautions, Individual/Group Therapy, Admin/Titrate Meds, Educate Patient Tobacco Medications: Not Appropriate Condition Multpiple Antipsychotics Used: No Problems: (1) Alcohol-induced mood disorder with depressive symptoms Optional Permanent Comment: significant dysphoria follows alcohol intoxication in this patient. Physiologic Withdrawal from alcohol is not a concern Last Edited By: Lebron Menendez on Jan 22, 2018 08:35 Status: Acute (2) Cannabis use disorder, severe, in controlled environment Status: Chronic (3) Alcohol dependence Status: Chronic Condition 1. start synthroid. 2. look into residential treatment Problem Qualifiers (1) Alcohol dependence: Substance use status: alcohol-induced mood disorder Qualified Codes: F10.24 - Alcohol dependence with alcohol-induced mood disorder LEBRON MENENDEZ MD Jan 24, 2018 11:27
[2018-01-24] MEDS: traZODone HCL 50 MG TAB PO SCH ×2 (20:25→21:00)
[2018-01-25] MEDS: LEVOTHYROXINE SOD 0.112 MG TAB PO SCH (05:25)
[2018-01-25] MEDS: THIAMINE HCL 100 MG TAB PO SCH (08:17)
[2018-01-25] MEDS: FOLIC ACID 1 MG TAB PO SCH (08:17)
[2018-01-25] MEDS: MULTIVITAMINS TAB PO SCH (08:17)
--- NOTE | 2018-01-25 09:43 | BHS Progress Note ---
BHS - Subjective Progress Notes Subjective Patient becoming more cooperative on the unit overall. Continues to take synthroid. Will continue to look for residential treatment for alcohol treatment. No alcohol withdrawal noted. Medically stable for entrance to rehab. No aggression, no self harm. No other complaints. Suicidal Ideation: None Homicidal Ideation: None S - Objective Physical Exam Vital Signs Hematology Test 01/18/18 00:00 01/18/18 07:25 01/18/18 19:58 Urine Color Yellow Urine Clarity Clear Urine pH 6.0 pH (4.8-9.5) Urine Specific [place] 1.010 Urine Protein Negative mg/dL (NEGATIVE) Urine Glucose (UA) Negative mg/dL (NEGATIVE) Urine Ketones Negative mg/dL (NEGATIVE) Urine Blood Negative (NEGATIVE) Urine Nitrite Negative (NEGATIVE) Urine Bilirubin Negative (NEGATIVE) Urine Urobilinogen 2.0 mg/dL (0.2-1.9) Urine Leukocyte Esterase Negative (NEGATIVE) Urine RBC None /HPF (0-2/HPF) Urine WBC 2 /HPF (0-5/HPF) Urine Squamous Epithelial Cells Few /LPF (</=FEW) Urine Bacteria Negative /HPF (NONE-FEW) Urine Mucus Few /HPF (NONE-FEW) Urine Opiates Screen Negative Urine Barbiturates Screen Negative Ur Tricyclic Antidepressants Screen Negative Urine Phencyclidine Screen Negative Urine Amphetamines Screen Negative Urine Benzodiazepines Screen Negative Urine Cocaine Screen Negative Urine Cannabinoids Screen Positive Troponin I < 0.012 ng/ml Tuberculin Skin Test 0 mm Chemistry Test 01/18/18 00:00 01/18/18 07:25 01/18/18 19:58 Urine Color Yellow Urine Clarity Clear Urine pH 6.0 pH (4.8-9.5) Urine Specific [place] 1.010 Urine Protein Negative mg/dL (NEGATIVE) Urine Glucose (UA) Negative mg/dL (NEGATIVE) Urine Ketones Negative mg/dL (NEGATIVE) Urine Blood Negative (NEGATIVE) Urine Nitrite Negative (NEGATIVE) Urine Bilirubin Negative (NEGATIVE) Urine Urobilinogen 2.0 mg/dL (0.2-1.9) Urine Leukocyte Esterase Negative (NEGATIVE) Urine RBC None /HPF (0-2/HPF) Urine WBC 2 /HPF (0-5/HPF) Urine Squamous Epithelial Cells Few /LPF (</=FEW) Urine Bacteria Negative /HPF (NONE-FEW) Urine Mucus Few /HPF (NONE-FEW) Urine Opiates Screen Negative Urine Barbiturates Screen Negative Ur Tricyclic Antidepressants Screen Negative Urine Phencyclidine Screen Negative Urine Amphetamines Screen Negative Urine Benzodiazepines Screen Negative Urine Cocaine Screen Negative Urine Cannabinoids Screen Positive Troponin I < 0.012 ng/ml Tuberculin Skin Test 0 mm Toxicology Test 01/18/18 00:00 Urine Opiates Screen Negative Urine Barbiturates Screen Negative Ur Tricyclic Antidepressants Screen Negative Urine Phencyclidine Screen Negative Urine Amphetamines Screen Negative Urine Benzodiazepines Screen Negative Urine Cocaine Screen Negative Urine Cannabinoids Screen Positive Urinalysis Test 01/18/18 00:00 Urine Color Yellow Urine Clarity Clear Urine pH 6.0 pH (4.8-9.5) Urine Specific [place] 1.010 Urine Protein Negative mg/dL (NEGATIVE) Urine Glucose (UA) Negative mg/dL (NEGATIVE) Urine Ketones Negative mg/dL (NEGATIVE) Urine Blood Negative (NEGATIVE) Urine Nitrite Negative (NEGATIVE) Urine Bilirubin Negative (NEGATIVE) Urine Urobilinogen 2.0 mg/dL (0.2-1.9) Urine Leukocyte Esterase Negative (NEGATIVE) Urine RBC None /HPF (0-2/HPF) Urine WBC 2 /HPF (0-5/HPF) Urine Squamous Epithelial Cells Few /LPF (</=FEW) Urine Bacteria Negative /HPF (NONE-FEW) Urine Mucus Few /HPF (NONE-FEW) Muscle Strength and Tone: WNL Gait and Station: Steady, Other S Medications Reviewed: Side Effects, Benefits of Medication, Risks Allergies Reviewed: Yes Mental Status Exam General Appearance: Casual, No Well Groomed, No Good Eye Contact, Cooperative, No Polite, No Good Interaction, No Unkept, No Tearful, No Psychomotor Agitation , No Psychomotor Retardation, No Bizarre Mannerisms, No Tics Speech: Clear, Spontaneous, Normal Volume, No Rambling, No Inappropriate, Other (speech impediment) Mood: Dysthmic/Depressed (improving, some frustration ) Affect: Full and Appropriate (at times), Calm, No Flat, No Withdrawn, No Tearful, No Anxious, No Agitated Thought Process: Goal Directed ([facility], and accepting of it. ), No Loose Associations, No Flight of Ideas Thought Content: No Suicidal Ideation, No Homicidal Ideation, No Delusions, No Auditory Halllucinations, No Visual Hallucinations, No Thought Broadcasting, No Ideas of Reference, No Obsessions, No Compulsions Sensorium: Clear Cognition: Alert & Oriented-Person, Alert & Oriented-Place, Alert & Oriented- Time, No Tjtuh-Oyaulxde-Filshojfx (partially) Memory: Immediate, Recent, Remote Intelligence: Below Average (historic borderline intellectual functioning. ) Insight Judgment: Poor (limited by intellect and abuse of alcohol and cannabis. ) [facility] Assessment and Plan Ieoe-eo-Obio Encounter Date: Jan 25, 2018 Yjkg-qi-Jstm Encounter Time: 09:30 S Plan: Necessary Precautions, Individual/Group Therapy, Admin/Titrate Meds, Educate Patient Tobacco Medications: Not Appropriate Condition Multpiple Antipsychotics Used: No Problems: (1) Alcohol-induced mood disorder with depressive symptoms Optional Permanent Comment: significant dysphoria follows alcohol intoxication in this patient. Physiologic Withdrawal from alcohol is not a concern Last Edited By: Lebron Menendez on Jan 22, 2018 08:35 Status: Acute (2) Cannabis use disorder, severe, in controlled environment Status: Chronic (3) Alcohol dependence Status: Chronic Condition 1. continue care. 2. look for residential treatment placement. Problem Qualifiers (1) Alcohol dependence: Substance use status: alcohol-induced mood disorder Qualified Codes: F10.24 - Alcohol dependence with alcohol-induced mood disorder LEBRON MENENDEZ MD Jan 25, 2018 09:43
[2018-01-25 20:00] VITALS: BP 108/73
[2018-01-25] MEDS ORDERED: NICOTINE CARTRIDGE 1 EA PO PRN (20:50)
[2018-01-25] MEDS ORDERED: NICOTINE INH SYSTEM 10 MG/INH INH PRN (20:50)
[2018-01-25] MEDS: traZODone HCL 50 MG TAB PO SCH (21:52)
[2018-01-26 05:49] VITALS: BP 101/59
[2018-01-26] MEDS: LEVOTHYROXINE SOD 0.112 MG TAB PO SCH (05:49)
[2018-01-26] MEDS: FOLIC ACID 1 MG TAB PO SCH (08:36)
[2018-01-26] MEDS: MULTIVITAMINS TAB PO SCH (08:36)
[2018-01-26] MEDS: THIAMINE HCL 100 MG TAB PO SCH (08:37)
--- NOTE | 2018-01-26 10:37 | BHS Progress Note ---
[facility] - Subjective Progress Notes Subjective Patient remains mildly uncooperative, encouraged patient to remain at the treatment facility that he will potentially enter early next week. No clinically relevant alcohol withdrawal was noted. appetite and sleep good. No other concerns. Will encourage patient to stay and complete rehab, which he will be court ordered to attend. Suicidal Ideation: None Homicidal Ideation: None [facility] - Objective Physical Exam Muscle Strength and Tone: WNL Gait and Station: Steady, Other [facility] Medications Reviewed: Side Effects, Benefits of Medication, Risks Allergies Reviewed: Yes Mental Status Exam General Appearance: Casual, No Well Groomed, No Good Eye Contact, Cooperative, No Polite, No Good Interaction, No Unkept, No Tearful, No Psychomotor Agitation , No Psychomotor Retardation, No Bizarre Mannerisms, No Tics Speech: Clear, Spontaneous, Normal Volume, No Rambling, No Inappropriate, Other (speech impediment) Mood: Dysthmic/Depressed (improving, some frustration ) Affect: Full and Appropriate (at times), Calm, No Flat, No Withdrawn, No Tearful, No Anxious, No Agitated Thought Process: Goal Directed (ready to go to [facility], and accepting of it. ), No Loose Associations, No Flight of Ideas Thought Content: No Suicidal Ideation, No Homicidal Ideation, No Delusions, No Auditory Halllucinations, No Visual Hallucinations, No Thought Broadcasting, No Ideas of Reference, No Obsessions, No Compulsions Sensorium: Clear Cognition: Alert & Oriented-Person, Alert & Oriented-Place, Alert & Oriented- Time, No Ednrx-Lucpmjbj-Dxkchvwqn (partially) Memory: Immediate, Recent, Remote Intelligence: Below Average (historic borderline intellectual functioning. ) Insight Judgment: Poor (limited by intellect and abuse of alcohol and cannabis. ) [facility] Assessment and Plan Bgfa-ae-Hphn Encounter Date: Jan 26, 2018 Ltlz-wo-Oqlt Encounter Time: 10:00 [facility] Plan: Necessary Precautions, Individual/Group Therapy, Admin/Titrate Meds, Educate Patient Tobacco Medications: Not Appropriate Condition Multpiple Antipsychotics Used: No Problems: (1) Alcohol-induced mood disorder with depressive symptoms Optional Permanent Comment: significant dysphoria follows alcohol intoxication in this patient. Physiologic Withdrawal from alcohol is not a concern Last Edited By: Lebron Menendez on Jan 22, 2018 08:35 Status: Acute (2) Cannabis use disorder, severe, in controlled environment Status: Chronic (3) Alcohol dependence Status: Chronic Condition 1. continue treatment. 2. entrance into rehab next week potentially. Problem Qualifiers (1) Alcohol dependence: Substance use status: alcohol-induced mood disorder Qualified Codes: F10.24 - Alcohol dependence with alcohol-induced mood disorder LEBRON MENENDEZ MD Jan 26, 2018 10:37
[2018-01-26 12:10] VITALS: BP 108/60
[2018-01-26 18:45] VITALS: BP 108/60
[2018-01-26] MEDS: traZODone HCL 50 MG TAB PO SCH (21:09)
[2018-01-27] MEDS: LEVOTHYROXINE SOD 0.112 MG TAB PO SCH (06:05)
[2018-01-27 06:20] VITALS: BP 109/48
[2018-01-27] MEDS: THIAMINE HCL 100 MG TAB PO SCH (08:17)
[2018-01-27] MEDS: FOLIC ACID 1 MG TAB PO SCH (08:17)
[2018-01-27] MEDS: MULTIVITAMINS TAB PO SCH (08:17)
[2018-01-27 08:37] VITALS: BP 95/63
--- NOTE | 2018-01-27 14:43 | BHS Progress Note ---
S - Subjective Progress Notes Subjective Pt seen with staff in treatment team room. Pt c/o mild insomnia today. He is asking about increase in trazodone, since as an outpatient he takes 100 to 150 mg of trazodone. Now that detox is complete, it would be reasonable to try a higher dose tonight, so will increase to 100 mg. We discussed his history with alcohol, previous episodes of sobriety. He seems quite motivated for treatment at rehab in [place] for 90 days, and is even talking about moving to [place] to start with a clean slate. Expressing a lot of regret for the losses that alcohol has caused him, like getting kicked out of [facility] [address]. Denies alcohol withdrawal symptoms. Suicidal Ideation: None Homicidal Ideation: None S - Objective Physical Exam Vital Signs Vital Signs 01/26/18 01/27/18 18:45 08:37 Temp 98.2 Pulse 45 Resp 16 B/P (MAP) 95/63 (74) Pulse Ox 94 O2 Delivery Room Air Muscle Strength and Tone: WNL Gait and Station: Steady, Other [facility] Medications Reviewed: Side Effects, Benefits of Medication, Risks Allergies Reviewed: Yes Mental Status Exam General Appearance: Casual, Well Groomed, No Good Eye Contact, Cooperative, No Polite, No Good Interaction, No Unkept, No Tearful, No Psychomotor Agitation, No Psychomotor Retardation, No Bizarre Mannerisms, No Tics Speech: Clear, Spontaneous, Normal Volume, No Rambling, No Inappropriate, Other (speech impediment) Mood: Dysthmic/Depressed (improving, some frustration ) Affect: Full and Appropriate (at times), Calm, No Flat, No Withdrawn, No Tearful, No Anxious, No Agitated Thought Process: Goal Directed ([facility], and accepting [facility]. ), No Loose Associations, No Flight of Ideas Thought Content: No Suicidal Ideation, No Homicidal Ideation, No Delusions, No Auditory Halllucinations, No Visual Hallucinations, No Thought Broadcasting, No Ideas of Reference, No Obsessions, No Compulsions Sensorium: Clear Cognition: Alert & Oriented-Person, Alert & Oriented-Place, Alert & Oriented- Time, No Onbwg-Mmmosejh-Dkirohcxr (partially) Memory: Immediate, Recent, Remote Intelligence: Below Average (historic borderline intellectual functioning. ) Insight Judgment: Poor (limited by intellect and abuse of alcohol and cannabis. ) [facility] Assessment and Plan Sekg-dj-Rlhm Encounter Date: Jan 27, 2018 Adks-fe-Sair Encounter Time: 09:00 [facility] Plan: Necessary Precautions, Individual/Group Therapy, Admin/Titrate Meds, Educate Patient Tobacco Medications: Not Appropriate Condition Multpiple Antipsychotics Used: No Problems: (1) Borderline intellectual functioning (2) Alcohol dependence Status: Chronic (3) Alcohol-induced mood disorder with depressive symptoms Optional Permanent Comment: significant dysphoria follows alcohol intoxication in this patient. Physiologic Withdrawal from alcohol is not a concern Last Edited By: Дмитрий De Jesus on Jan 22, 2018 08:35 Status: Acute Problem Qualifiers (1) Alcohol dependence: Substance use status: alcohol-induced mood disorder Qualified Codes: F10.24 - Alcohol dependence with alcohol-induced mood disorder FRANKY DANG MD Jan 27, 2018 14:43
[2018-01-27 16:27] VITALS: BP 101/71
[2018-01-27] MEDS: traZODone HCL 50 MG TAB PO SCH (21:29)
[2018-01-28] MEDS: LEVOTHYROXINE SOD 0.112 MG TAB PO SCH (05:39)
[2018-01-28 06:08] VITALS: BP 90/50
[2018-01-28] MEDS: FOLIC ACID 1 MG TAB PO SCH (08:16)
[2018-01-28] MEDS: MULTIVITAMINS TAB PO SCH (08:16)
[2018-01-28] MEDS: THIAMINE HCL 100 MG TAB PO SCH (08:16)
[2018-01-28 12:40] VITALS: BP 102/60
--- NOTE | 2018-01-28 13:47 | BHS Progress Note ---
[facility] - Subjective Progress Notes Subjective Pt seen in conference room with team. Pt doing well today, in a good mood, joking with us. Also talking about his wishes-- that rehab will be OK, that he will be "able to dig deep again," that someday he wants to live in [place] ( which of course led to discussion of avoiding places with such significant alcohol culture). Pt wanting to get ready for trip to rehab tomorrow, planning to shave, grateful to staff who washed his clothes for him yesterday. Expressing remorse for things he did when intoxicated, verbalizing commitment to work hard at rehab. Denies pain, denies withdrawal symptoms, mood good, slept better last night with 100 mg trazodone, denies oversedation this am. Suicidal Ideation: None Homicidal Ideation: None [facility] - Objective Physical Exam Vital Signs Vital Signs 01/26/18 01/28/18 18:45 06:08 Temp 97.1 Pulse 40 Resp 16 B/P (MAP) 90/50 (63) Pulse Ox 90 O2 Delivery Room Air Muscle Strength and Tone: WNL Gait and Station: Steady, Other S Medications Reviewed: Side Effects, Benefits of Medication, Risks Allergies Reviewed: Yes Mental Status Exam General Appearance: Casual, Well Groomed, No Good Eye Contact, Cooperative, No Polite, No Good Interaction, No Unkept, No Tearful, No Psychomotor Agitation, No Psychomotor Retardation, No Bizarre Mannerisms, No Tics Speech: Clear, Spontaneous, Normal Volume, No Rambling, No Inappropriate, Other (speech impediment) Mood: Euthymic Affect: Full and Appropriate, Calm, No Flat, No Withdrawn, No Tearful, No Anxious, No Agitated Thought Process: Organized, Logical, Goal Directed, No Loose Associations, No Flight of Ideas Thought Content: No Suicidal Ideation, No Homicidal Ideation, No Delusions, No Auditory Halllucinations, No Visual Hallucinations, No Thought Broadcasting, No Ideas of Reference, No Obsessions, No Compulsions Sensorium: Clear Cognition: Alert & Oriented-Person, Alert & Oriented-Place, Alert & Oriented- Time, No Mrukl-Bedyqfeg-Ukilgzyfl (partially) Memory: Immediate, Recent, Remote Intelligence: Below Average (historic borderline intellectual functioning. ) Insight Judgment: Fair [facility] Assessment and Plan Hzmb-ec-Ejbc Encounter Date: Jan 28, 2018 Hmlk-gh-Pgee Encounter Time: 09:30 S Plan: Necessary Precautions, Individual/Group Therapy, Admin/Titrate Meds, Educate Patient Tobacco Medications: Not Appropriate Condition Multpiple Antipsychotics Used: No Problems: (1) Borderline intellectual functioning (2) Alcohol dependence Status: Chronic (3) Alcohol-induced mood disorder with depressive symptoms Optional Permanent Comment: significant dysphoria follows alcohol intoxication in this patient. Physiologic Withdrawal from alcohol is not a concern Last Edited By: Дмитрий De Jesus on Jan 22, 2018 08:35 Status: Acute Problem Qualifiers (1) Alcohol dependence: Substance use status: alcohol-induced mood disorder Qualified Codes: F10.24 - Alcohol dependence with alcohol-induced mood disorder FRANKY DANG MD Jan 28, 2018 13:47
[2018-01-28 18:20] VITALS: BP 116/73
[2018-01-28 20:30] VITALS: BP 121/86
[2018-01-28] MEDS: traZODone HCL 50 MG TAB PO SCH (21:13)
[2018-01-29 05:39] VITALS: BP 112/72
[2018-01-29] MEDS: LEVOTHYROXINE SOD 0.112 MG TAB PO SCH (06:00)
[2018-01-29] MEDS: FOLIC ACID 1 MG TAB PO SCH (08:10)
[2018-01-29] MEDS: MULTIVITAMINS TAB PO SCH (08:10)
[2018-01-29] MEDS: THIAMINE HCL 100 MG TAB PO SCH (08:11)
[2018-01-29] MEDS ORDERED: MULT-859 PO (09:35)
[2018-01-29] MEDS ORDERED: NIC10R INH (09:35)
[2018-01-29 09:45] VITALS: BP 139/87
--- NOTE | 2018-01-31 04:12 | SCHAAF DISCHARGE ---
DATE OF ADMISSION January 18, 2018 DATE OF DISCHARGE January 29, 2018 ATTENDING PHYSICIAN Дмитрий De Jesus MD DATE OF EXAMINATION Patient was seen in the morning of January 29, 2018, approximately 0930 hours for note concerning this dictation. FINAL DIAGNOSES PER DSM-V Alcohol use disorder, severe. Cannabis use disorder, severe. Substance induced mood disorder. Borderline intellectual functioning. Ongoing social stressors. Limitations of decision-making skills. REASON FOR ADMISSION This is a very well-known 47-year-old male who demonstrates an almost continued inability to abstain from alcohol and cannabis, which when patient consumes, results in an instantaneous mood disorder. Patient was noted to have called police once again after drinking. Police were going to give patient a ride home , where he stated to them he would go home and cut himself, and indicated suicidal thoughts. Patient then generally recovers quickly on the unit, and with no clinically relevant evidence of alcohol withdrawal noted, patient's mood quickly improves. Patient is also noted not to take Synthroid, currently at 112 mcg, at home if left to his own devices. Patient has past histories of schizoaffective disorder and developmental disorder and had institutionalization as a child. 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 At this time, patient is under a legal commitment to go to residential treatment and complete it. Patient reluctantly agreeing to do so , and will be sent to residential treatment for alcohol and cannabis use disorder. Patient has a history of other drug use as well. Patient's cognitive capacity is limited, and patient's history suggests a high probability that he will exit treatment early if able to do so. Patient on the unit mildly uncooperative, cursing at times, but demonstrating no outright aggression towards staff or others, and demonstrating no parasuicidal behaviors. PHYSICAL EXAMINATION Please see emergency room note. Notable for well known 47-year-old male, no acute medical distress. Vital signs at the time of admission: Temperature 98.2 , pulse 54, respiratory rate 16, blood pressure 116/80 and pulse oximetry 90 on room air. Vital signs at time of discharge from [facility] indicated temperature 98.1., pulse 54, respiratory rate 16, blood pressure 139/87 and pulse oximetry 94 on room air. LABORATORY DATA CBC was unremarkable at time of admission. CMP noted to be notable for AST with a mild elevation of 47, magnesium 1.6 and low, potassium 3.3 and low, TSH 6.01. Toxicology screen notable for serum alcohol of 264 upon admission. Patient's cannabis screen positive as well. PPD was negative. Troponins nondetectable, and urinalysis overall unremarkable. MENTAL STATUS EXAMINATION GENERAL APPEARANCE, BEHAVIOR AND ATTITUDE: This is an overall cooperative 47- year-old cursing about going to rehab and cursing about mental health commitment to force him to do so. No psychomotor agitation or retardation. Patient interacting in a way suggesting with neurodevelopmental disorder and considered baseline in this well-known patient. SPEECH: Considered baseline with stuttering present. MOOD: Described as irritated. AFFECT: Mildly constricted. THOUGHT PROCESSES: Goal-directed, patient stating, "Let's get this over with", meaning that he is going to treatment. No loose associations or flight of ideas. THOUGHT CONTENT: Free of any auditory or visual hallucinations, ideas of reference, thought broadcastings, delusions, obsessions or compulsions. Patient adamantly denying suicidal or homicidal ideation. SENSORIUM: Clear. COGNITION: Alert, oriented to person, place, time, partially to situation. MEMORY: Immediate, recent and remote considered grossly intact. INTELLIGENCE: Historically considered below average, based on high likelihood of borderline intellectual functioning. INSIGHT AND JUDGMENT: Limited when patient left to his own devices. Patient on multiple occasions has returned to alcohol and substance use, which almost instantaneously generate a mood disorder in this patient. Patient having limited cognitive abilities. RESULTS OF TESTING Imaging: None. Laboratory data: See above. CONSULTATIONS None. TREATMENT Patient received medications, participated in individual and group therapy. HOSPITAL COURSE This very well known 47-year-old male once again on the unit under very similar circumstances to multiple past admissions. Patient was restarted on Synthroid and trazodone. Patient remained irritated. No clinically relevant alcohol withdrawal is noted. Patient was court ordered to rehab. CONDITION OF PATIENT ON DISCHARGE Stable from a medical standpoint and appropriate for entrance into rehab. Considered a minimal risk to himself or others, as long as patient abstains from alcohol or illicit substance use. DISPOSITION Patient discharged to enter the rehab program in [place] for 90 days. Patient was instructed and strongly encouraged to complete the rehab program and not leave. Patient under an outpatient commitment to do so. Patient would follow up with care there. His medications were to be taken as prescribed. He was to abstain from illicit substance use and alcohol, given the crisis line should symptoms return. Medications included trazodone 100 mg at bedtime, Synthroid 112 mcg daily, multivitamin with minerals daily. Patient was encouraged to stop smoking and continue nicotine replacement treatment. Risks, benefits and alternatives of the above discharge plan were discussed. Informed consent was given to proceed with the above discharge plan by this patient, legal system and rehab program. BELEN
== END 2018-01-29 10:13 | DRG 897 ==
LOC: BHS 06:08
PROVIDERS: ADMIT Psychiatry & Neurology Psychiatry; ATTEND Psychiatry & Neurology Psychiatry
DX: F10.24 Alcohol dependence with alcohol-induced mood disorder (principal); R41.83 Borderline intellectual functioning; F12.20 Cannabis dependence, uncomplicated; Y90.8 Blood alcohol level of 240 mg/100 ml or more; Z91.14 Patient's other noncompliance with medication regimen; Z91.5 Personal history of self-harm
CPT/HCPCS: 36415; 80305; 80320; 80329; 81001; 82040; 82247; 82310; 82374; 82435; 82565; 82947; 83735; 84075; 84132; 84155; 84295; 84443; 84450; 84460; 84484; 84520; 85025; 86580; 93005; 96374; 99283; A4216; J1200; J3490